=== PATIENT | male | born 1980 | race Caucasian/White ===

== ENCOUNTER 2017-01-09 16:04 | Emergency (ER) | payer MEDICAID ==
[2017-01-09] MEDS ORDERED: Famotidine 20 MG/2 ML SDV IVPUSH ONE (16:51)
[2017-01-09] MEDS ORDERED: HYDROmorphone 1 MG/ML Syringe IVPUSH ONE (16:51)
[2017-01-09] MEDS ORDERED: Ondansetron 4 MG/2 ML SDV IVPUSH ONE (16:51)
[2017-01-09] MEDS ORDERED: Sodium Chloride 0.9% 1,000 ML IV SCH (17:00)
--- NOTE | 2017-01-09 17:18 | EDM.PDOC ---
ED HPI GI/ABDOMINAL - General Chief Complaint: Abdominal Pain Stated Complaint: ABDOMINAL PN, BLOODY STOOL, SWOLLEN TESTICLES Time Seen by Provider: 01/09/17 16:21 Source of Information: Reports: Patient, RN notes reviewed - History of Present Illness INITIAL COMMENTS - FREE TEXT/NARRATIVE: 36-year-old male comes in with abdominal pain. This started about 4 days ago. The pain has been quite generalized. He started having diarrhea 2 or 3 days ago. That has been frequent and watery. He does get occasional cramping with this. He's been "forcing himself to eat". He's had nausea but no vomiting. No fever or chills. No prior abdominal surgeries. - Related Data Allergies/ADRs: Allergies Allergy/AdvReac Type Severity Reaction Status Date / Time haloperidol [From Haldol] Allergy Other Verified 01/09/17 16:20 Home Meds: Home Meds Ciprofloxacin [Ciprofloxacin HCl] 500 mg PO BID #7 tablet 01/09/17 [Rx] Hydrocodone/Acetaminophen [[place] 5-325] 1 tab PO Q6HR PRN #4 tablet 01/09/17 [Rx ] Ondansetron [Zofran ODT] 4 mg PO Q8H PRN #5 tab.dis 01/09/17 [Rx] Past Medical History Gastrointestinal History: Reports: Bowel obstruction, Other (see below) Other Gastrointestinal History: hernias; abdominal surgery - Past Surgical History HEENT Surgical History: Reports: Eye surgery, Tonsillectomy Social & Family History - Tobacco Use Smoking Status *Q: Current Every Day Smoker Years of Tobacco use: 21 Packs/Tins Daily: 2 - Recreational Drug Use Recreational Drug Use: Yes Drug Use in Last 12 Months: No ED ROS GENERAL - Review of Systems Review Of Systems: See Below Constitutional: Denies: fever, chills, diaphoresis HEENT: Reports: No symptoms Respiratory: Denies: Shortness of Breath, Pleuritic Chest Pain Cardiovascular: Denies: Chest pain GI/Abdominal: Reports: Abdominal pain, Diarrhea, Melena, Nausea Musculoskeletal: Reports: back pain Skin: Reports: no symptoms Neurological: Reports: Dizziness ED EXAM, GI/ABD - Physical Exam Exam: See Below General Appearance: alert, moderate distress Eyes: bilateral: normal appearance Throat/Mouth: Normal inspection, Normal oropharynx Head: atraumatic. No: facial swelling Neck: supple, full range of motion Respiratory/Chest: lungs clear, normal breath sounds Cardiovascular: regular rate, rhythm GI/Abdominal: soft, tenderness (Moderate diffuse). No: guarding, rebound Back Exam: No: CVA tenderness (L), CVA tenderness (R) Extremities: normal inspection, normal range of motion Neurological: alert, oriented, no motor/sensory deficits Skin Exam: Warm, Dry, Normal color Course - Vital Signs Last Recorded V/S: Last Vital Signs Temp 97.8 F 01/09/17 16:20 Pulse 70 01/09/17 16:20 Resp 18 01/09/17 16:20 BP 119/78 01/09/17 16:20 Pulse Ox 100 01/09/17 16:20 - Orders/Labs/Meds Orders: Active Orders 24 hr Category Date Time Status Sodium Chloride 0.9% [Normal Saline] 1,000 ml Med 01/09/17 17:00 Active IV ONETIME Medication Orders Sodium Chloride (Normal Saline) 1,000 mls @ 999 mls/hr IV ONETIME HANK Last Admin: 01/09/17 17:09 Dose: 999 mls/hr Labs: Laboratory Tests 01/09/17 01/09/17 01/09/17 Range/Units 16:55 16:55 16:55 WBC 7.88 (4.23-9.07) K/mm3 RBC 5.09 (4.63-6.08) M/mm3 Hgb 15.5 (13.7-17.5) gm/L Hct 44.8 (40.1-51.0) % MCV 88.0 (79.0-92.2) fl MCH 30.5 (25.7-32.2) pg MCHC 34.6 (32.2-35.5) g/dl RDW Std Deviation 43.8 (35.1-43.9) fL Plt Count 226 (163-337) K/mm3 MPV 10.4 (9.4-12.3) fl Neut % (Auto) 67.1 (34.0-67.9) % Lymph % (Auto) 25.9 (21.8-53.1) % [place] % (Auto) 5.8 (5.3-12.2) % Eos % (Auto) 0.8 (0.8-7.0) Baso % (Auto) 0.3 (0.1-1.2) % Neut # (Auto) 5.29 (1.78-5.38) K/mm3 Lymph # (Auto) 2.04 (1.32-3.57) K/mm3 [place] # (Auto) 0.46 (0.30-0.82) K/mm3 Eos # (Auto) 0.06 (0.04-0.54) K/mm3 Baso # (Auto) 0.02 (0.01-0.08) K/mm3 Sodium 142 (136-145) mEq/L Potassium 3.6 (3.5-5.1) mEq/L Chloride 105 (98-107) mEq/L Carbon Dioxide 26 (21-32) mEq/L Anion Gap 14.6 (5-15) BUN 6 L (7-18) mg/dL Creatinine 0.9 (0.7-1.3) mg/dL Est Cr Clr Drug Dosing 108.04 mL/min Estimated GFR (MDRD) > 60 (>60) mL/min BUN/Creatinine Ratio 6.7 L (14-18) Glucose 107 H (74-106) mg/dL Calcium 9.2 (8.5-10.1) mg/dL Total Bilirubin 0.7 (0.2-1.0) mg/dL AST 17 (15-37) U/L ALT 18 (16-63) U/L Alkaline Phosphatase 76 (46-116) U/L C-Reactive Protein < 0.2 (<1.0) mg/dL Total Protein 6.7 (6.4-8.2) g/dl Albumin 3.9 (3.4-5.0) g/dl Globulin 2.8 gm/dL Albumin/Globulin Ratio 1.4 (1-2) Urine Color (Yellow) Urine Appearance (Clear) Urine pH (5.0-8.0) Ur Specific [place] (1.005-1.030) Urine Protein (Negative) Urine Glucose (UA) (Negative) Urine Ketones (Negative) Urine Occult Blood (Negative) Urine Nitrite (Negative) Urine Bilirubin (Negative) Urine Urobilinogen (0.2-1.0) Ur Leukocyte Esterase (Negative) Urine RBC (0-5) /hpf Urine WBC (0-5) /hpf Ur Epithelial Cells (0-5) /hpf Amorphous Sediment (NOT SEEN) /hpf Urine Bacteria (FEW) /hpf Urine Mucus (FEW) /hpf 01/09/17 Range/Units 17:25 WBC (4.23-9.07) K/mm3 RBC (4.63-6.08) M/mm3 Hgb (13.7-17.5) gm/L Hct (40.1-51.0) % MCV (79.0-92.2) fl MCH (25.7-32.2) pg MCHC (32.2-35.5) g/dl RDW Std Deviation (35.1-43.9) fL Plt Count (163-337) K/mm3 MPV (9.4-12.3) fl Neut % (Auto) (34.0-67.9) % Lymph % (Auto) (21.8-53.1) % [place] % (Auto) (5.3-12.2) % Eos % (Auto) (0.8-7.0) Baso % (Auto) (0.1-1.2) % Neut # (Auto) (1.78-5.38) K/mm3 Lymph # (Auto) (1.32-3.57) K/mm3 [place] # (Auto) (0.30-0.82) K/mm3 Eos # (Auto) (0.04-0.54) K/mm3 Baso # (Auto) (0.01-0.08) K/mm3 Sodium (136-145) mEq/L Potassium (3.5-5.1) mEq/L Chloride (98-107) mEq/L Carbon Dioxide (21-32) mEq/L Anion Gap (5-15) BUN (7-18) mg/dL Creatinine (0.7-1.3) mg/dL Est Cr Clr Drug Dosing mL/min Estimated GFR (MDRD) (>60) mL/min BUN/Creatinine Ratio (14-18) Glucose (74-106) mg/dL Calcium (8.5-10.1) mg/dL Total Bilirubin (0.2-1.0) mg/dL AST (15-37) U/L ALT (16-63) U/L Alkaline Phosphatase (46-116) U/L C-Reactive Protein (<1.0) mg/dL Total Protein (6.4-8.2) g/dl Albumin (3.4-5.0) g/dl Globulin gm/dL Albumin/Globulin Ratio (1-2) Urine Color Light yellow (Yellow) Urine Appearance Clear (Clear) Urine pH 7.5 (5.0-8.0) Ur Specific [place] 1.015 (1.005-1.030) Urine Protein Negative (Negative) Urine Glucose (UA) Negative (Negative) Urine Ketones Negative (Negative) Urine Occult Blood Negative (Negative) Urine Nitrite Negative (Negative) Urine Bilirubin Negative (Negative) Urine Urobilinogen 0.2 (0.2-1.0) Ur Leukocyte Esterase Negative (Negative) Urine RBC 0-5 (0-5) /hpf Urine WBC 0-5 (0-5) /hpf Ur Epithelial Cells 0-5 (0-5) /hpf Amorphous Sediment Few H (NOT SEEN) /hpf Urine Bacteria Rare (FEW) /hpf Urine Mucus Not seen (FEW) /hpf Meds: Medications Generic Name Dose Route Start Last Admin Trade Name Freq PRN Reason Stop Dose Admin Sodium Chloride 1,000 mls @ 999 mls/hr 01/09/17 17:00 01/09/17 17:09 Normal Saline IV 999 mls/hr ONETIME HANK Administration Discontinued Medications Generic Name Dose Route Start Last Admin Trade Name Freq PRN Reason Stop Dose Admin Famotidine 20 mg 01/09/17 16:51 01/09/17 17:11 Pepcid IVPUSH 01/09/17 16:52 20 mg ONETIME ONE Administration Hydromorphone HCl 0.5 mg 01/09/17 16:51 01/09/17 17:13 Dilaudid IVPUSH 01/09/17 16:52 0.5 mg ONETIME ONE Administration Hydromorphone HCl 0.5 mg 01/09/17 18:32 01/09/17 18:37 Dilaudid IVPUSH 01/09/17 18:33 0.5 mg ONETIME ONE Administration Ondansetron HCl 4 mg 01/09/17 16:51 01/09/17 17:09 Zofran IVPUSH 01/09/17 16:52 4 mg ONETIME ONE Administration - Re-Assessments/Exams Free Text/Narrative Re-Assessment/Exam: 01/09/17 18:33 White blood count, C-reactive protein are both normal. Chemistries are good. He did feel better after initial meds and also has received 1 L normal saline IV. His pain and cramping is starting to come back, we'll give another 0.5 mg dose Dilaudid IV. This is likely a food born illness. Going to start him on Cipro 500 mg twice a day for 3 days. Discharge instructions as documented Departure - Departure Time of Disposition: 18:55 Disposition: Home, Self-Care 01 Condition: fair Clinical Impression: Abdominal pain Qualifiers: Abdominal location: generalized Qualified Code(s): R10.84 - Generalized abdominal pain Diarrhea Qualifiers: Diarrhea type: unspecified type Qualified Code(s): R19.7 - Diarrhea, unspecified Prescriptions: Hydrocodone/Acetaminophen [[place] 5-325] 1 tab PO Q6HR PRN #4 tablet PRN Reason: Pain Ciprofloxacin [Ciprofloxacin HCl] 500 mg PO BID #7 tablet Ondansetron [Zofran ODT] 4 mg PO Q8H PRN #5 tab.dis PRN Reason: Nausea/Vomiting Referrals: PCP,None [Primary Care Provider] - Forms: ED Department Discharge Additional Instructions: Clear liquids until tomorrow afternoon, then careful bland diet as tolerated, start Cipro antibiotic tonight take 500 mg daily for the next 3 days or until gone, Zofran every 6-8 hours if needed for further nausea or vomiting, hydrocodone every 6 hours if needed for severe pain, probiotic twice daily to get more the good bacteria back into your colon, that is available OTC, planned to take that for about a week. Followup [facility] medical clinic if not much better within 2-3 days as expected, return to ED if symptoms worsening in any - My Orders Last 24 Hours: My Active Orders 01/09/17 17:00 Sodium Chloride 0.9% [Normal Saline] 1,000 ml IV ONETIME - Assessment/Plan Last 24 Hours: My Active Orders 01/09/17 17:00 Sodium Chloride 0.9% [Normal Saline] 1,000 ml IV ONETIME
[2017-01-09] MEDS ORDERED: HYDROmorphone 0.5 MG/0.5 ML Syringe IVPUSH ONE (18:32)
[2017-01-09 19:12] VITALS: BP 107/80
== END 2017-01-09 19:07 | disposition home or self-care (01) ==
LOC: JD.ED 16:04
DX: R10.84 Generalized abdominal pain (principal); R19.7 Diarrhea, unspecified; F17.210 Nicotine dependence, cigarettes, uncomplicated; Z98.890 Other specified postprocedural states; Z79.899 Other long term (current) drug therapy
CPT/HCPCS: 36415; 80053; 81001; 85025; 86140; 96361; 96374; 96375; 96376; 99285; J1170; J2405; J7040; 99284

== ENCOUNTER 2017-01-15 09:09 | Emergency (ER) | payer MEDICAID ==
[2017-01-15 09:37] VITALS: BP 134/86
[2017-01-15] MEDS ORDERED: Sodium Chloride 0.9% 10 ML Syringe FLUSH PRN (09:54)
[2017-01-15] MEDS ORDERED: Ondansetron 4 MG/2 ML SDV IVPUSH ONE (09:54)
[2017-01-15] MEDS ORDERED: HYDROmorphone 1 MG/ML Syringe IVPUSH ONE (09:54)
[2017-01-15] MEDS ORDERED: Famotidine 20 MG/2 ML SDV IVPUSH ONE (09:54)
[2017-01-15] MEDS ORDERED: Sodium Chloride 0.9% 1,000 ML IV SCH ×2 (10:00→11:45)
[2017-01-15] MEDS ORDERED: methylPREDNISolone Sodium Succinate 125 MG/2 ML SDV IVPUSH ONE (11:39)
[2017-01-15] MEDS ORDERED: Ketorolac 30 MG/ML SDV IVPUSH SCH (12:15)
--- NOTE | 2017-01-15 13:01 | EDM.PDOC ---
ED HPI GI/ABDOMINAL - General Chief Complaint: Abdominal Pain Stated Complaint: LOOSE STOOL Time Seen by Provider: 01/15/17 09:34 Source of Information: Reports: Patient, RN notes reviewed - History of Present Illness INITIAL COMMENTS - FREE TEXT/NARRATIVE: 36-year-old male comes in with abdominal pain, nausea vomiting diarrhea. The symptoms started about a week ago. He was seen here in the ED able 4 days ago treated with IV fluid, IV meds and started on Cipro 500 mg twice daily. He's finished the Cipro. He states the diarrhea has not gotten any better. Now he is nauseated, intermittent vomiting. He states at times there is mucous with the diarrhea. He's had a lot of pain and cramping. No obvious fever or chills. - Related Data Allergies/ADRs: Allergies Allergy/AdvReac Type Severity Reaction Status Date / Time haloperidol [From Haldol] Allergy Other Verified 01/15/17 09:32 Home Meds: Home Meds Ciprofloxacin [Ciprofloxacin HCl] 500 mg PO BID #7 tablet 01/09/17 [Rx] Hydrocodone/Acetaminophen [[place] 5-325] 1 tab PO Q6HR PRN #4 tablet 01/09/17 [Rx ] Ondansetron [Zofran ODT] 4 mg PO Q8H PRN #5 tab.dis 01/09/17 [Rx] Ondansetron [Zofran ODT] 4 mg PO Q6H PRN #7 tab.dis 01/15/17 [Rx] Prednisone [IMW: predniSONE] 40 mg PO WITHBREAKFAST #10 tab 01/15/17 [Rx] Past Medical History Gastrointestinal History: Reports: Bowel obstruction, Other (see below) Other Gastrointestinal History: hernias; abdominal surgery, ulcers - Past Surgical History HEENT Surgical History: Reports: Eye surgery, Tonsillectomy Social & Family History - Family History Family Medical History: Noncontributory - Tobacco Use Smoking Status *Q: Current Every Day Smoker Years of Tobacco use: 10 Packs/Tins Daily: 1 - Recreational Drug Use Recreational Drug Use: No Drug Use in Last 12 Months: No ED ROS GENERAL - Review of Systems Review Of Systems: See Below Constitutional: Denies: fever, chills Respiratory: Denies: Shortness of Breath Cardiovascular: Denies: Chest pain GI/Abdominal: Reports: Abdominal pain, Diarrhea, Nausea, Vomiting Musculoskeletal: Reports: no symptoms Skin: Reports: no symptoms Neurological: Reports: No Symptoms ED EXAM, GI/ABD - Physical Exam Exam: See Below Exam Limited By: No limitations General Appearance: alert, anxious, mild distress Eyes: bilateral: normal appearance Throat/Mouth: Normal inspection, Normal oropharynx, Other (Oral mucosa mildly dry) Head: atraumatic Neck: supple, full range of motion Respiratory/Chest: lungs clear, normal breath sounds Cardiovascular: regular rate, rhythm GI/Abdominal: soft, tenderness (Mild diffuse). No: guarding, rebound Back Exam: No: CVA tenderness (L), CVA tenderness (R) Extremities: normal inspection, normal range of motion. No: leg pain Neurological: alert, oriented, no motor/sensory deficits Course - Vital Signs Last Recorded V/S: Last Vital Signs Temp 98.5 F 01/15/17 09:34 Pulse 74 01/15/17 09:34 Resp 18 01/15/17 09:34 BP 134/86 01/15/17 09:34 Pulse Ox 100 01/15/17 09:34 Orthostatic Blood Pressure [ 126/107 Standing] Orthostatic Blood Pressure [ 134/86 Supine] - Orders/Labs/Meds Orders: Active Orders 24 hr Category Date Time Status Peripheral IV Care [RC] . DIRECTED Care 01/15/17 09:56 Active Peripheral IV Insertion Adult [OM.PC] Stat Oth 01/15/17 09:54 Ordered Labs: Laboratory Tests 01/15/17 01/15/17 01/15/17 Range/Units 10:00 10:00 10:00 WBC 8.06 (4.23-9.07) K/mm3 RBC 5.66 (4.63-6.08) M/mm3 Hgb 17.2 (13.7-17.5) gm/L Hct 49.3 (40.1-51.0) % MCV 87.1 (79.0-92.2) fl MCH 30.4 (25.7-32.2) pg MCHC 34.9 (32.2-35.5) g/dl RDW Std Deviation 44.0 H (35.1-43.9) fL Plt Count 259 (163-337) K/mm3 MPV 10.6 (9.4-12.3) fl Neut % (Auto) 69.4 H (34.0-67.9) % Lymph % (Auto) 23.4 (21.8-53.1) % [place] % (Auto) 6.2 (5.3-12.2) % Eos % (Auto) 0.6 L (0.8-7.0) Baso % (Auto) 0.2 (0.1-1.2) % Neut # (Auto) 5.58 H (1.78-5.38) K/mm3 Lymph # (Auto) 1.89 (1.32-3.57) K/mm3 [place] # (Auto) 0.50 (0.30-0.82) K/mm3 Eos # (Auto) 0.05 (0.04-0.54) K/mm3 Baso # (Auto) 0.02 (0.01-0.08) K/mm3 Sodium 142 (136-145) mEq/L Potassium 3.8 (3.5-5.1) mEq/L Chloride 108 H (98-107) mEq/L Carbon Dioxide 23 (21-32) mEq/L Anion Gap 14.8 (5-15) BUN 11 (7-18) mg/dL Creatinine 0.9 (0.7-1.3) mg/dL Est Cr Clr Drug Dosing TNP Estimated GFR (MDRD) > 60 (>60) mL/min BUN/Creatinine Ratio 12.2 L (14-18) Glucose 104 (74-106) mg/dL Calcium 9.2 (8.5-10.1) mg/dL Total Bilirubin 0.8 (0.2-1.0) mg/dL AST 19 (15-37) U/L ALT 22 (16-63) U/L Alkaline Phosphatase 78 (46-116) U/L C-Reactive Protein < 0.2 (<1.0) mg/dL Total Protein 7.1 (6.4-8.2) g/dl Albumin 4.1 (3.4-5.0) g/dl Globulin 3.0 gm/dL Albumin/Globulin Ratio 1.4 (1-2) Lipase 245 (73-393) U/L Meds: Medications Discontinued Medications Generic Name Dose Route Start Last Admin Trade Name Freq PRN Reason Stop Dose Admin Famotidine 20 mg 01/15/17 09:54 01/15/17 10:15 Pepcid IVPUSH 01/15/17 09:55 20 mg ONETIME ONE Administration Hydromorphone HCl 1 mg 01/15/17 09:54 01/15/17 10:18 Dilaudid IVPUSH 01/15/17 09:55 1 mg ONETIME ONE Administration Sodium Chloride 1,000 mls @ 999 mls/hr 01/15/17 10:00 01/15/17 10:15 Normal Saline IV 999 mls/hr ONETIME HANK Administration Sodium Chloride 1,000 mls @ 999 mls/hr 01/15/17 11:45 01/15/17 11:52 Normal Saline IV 999 mls/hr ONETIME HANK Administration Ketorolac Tromethamine 30 mg 01/15/17 12:15 01/15/17 12:23 Toradol IVPUSH 30 mg ONETIME HANK Administration Methylprednisolone Sodium Succinate 125 mg 01/15/17 11:39 01/15/17 11:53 Solu-Medrol IVPUSH 01/15/17 11:40 125 mg ONETIME ONE Administration Ondansetron HCl 4 mg 01/15/17 09:54 01/15/17 10:17 Zofran IVPUSH 01/15/17 09:55 4 mg ONETIME ONE Administration Sodium Chloride 10 ml 01/15/17 09:54 01/15/17 10:46 Saline Flush FLUSH 10 ml ASDIRECTED PRN Administration Keep Vein Open - Re-Assessments/Exams Free Text/Narrative Re-Assessment/Exam: 01/15/17 12:53. Patient reportedly did take the Cipro as prescribed, has been on clear liquids as directed. 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 Labs today look remarkably good considering what he has described her symptoms. He is not dehydrated. Anion gap normal, white blood count normal, other labs normal as well. We've given 2 L of IV fluid. We did give some Zofran, IV Pepcid, IV Dilaudid. A short time ago he is asking for more pain medication. He does seem to have a strong interest in that. We've given Toradol 30 mg IV. Discharge instructions as documented Departure - Departure Time of Disposition: 13:02 Disposition: Home, Self-Care 01 Condition: fair Clinical Impression: Vomiting Qualifiers: Vomiting type: unspecified Vomiting Intractability: non-intractable Nausea presence: with nausea Qualified Code(s): R11.2 - Nausea with vomiting, unspecified Diarrhea Qualifiers: Diarrhea type: unspecified type Qualified Code(s): R19.7 - Diarrhea, unspecified Abdominal pain Qualifiers: Abdominal location: generalized Qualified Code(s): R10.84 - Generalized abdominal pain Prescriptions: Ondansetron [Zofran ODT] 4 mg PO Q6H PRN #7 tab.dis PRN Reason: Nausea/Vomiting Prednisone [IMW: predniSONE] 40 mg PO WITHBREAKFAST #10 tab Instructions: Viral Gastroenteritis, Adult, [id number], Abdominal Pain, Adult , [id number] Referrals: PCP,None [Primary Care Provider] - Forms: ED Department Discharge Additional Instructions: Continue clear liquids, start probiotic twice daily as discussed. It is extremely important to do this. That will help get normal bacteria back into your colon and intestine which has been washed out., Prednisone as prescribed, 40 mg daily for the next 5 days, followup clinic if not much better within 3-4 days as expected, call [phone] as needed for appointment. - My Orders Last 24 Hours: My Active Orders 01/15/17 09:54 Peripheral IV Insertion Adult [OM.PC] Stat 01/15/17 09:56 Peripheral IV Care [RC] . DIRECTED - Assessment/Plan Last 24 Hours: My Active Orders 01/15/17 09:54 Peripheral IV Insertion Adult [OM.PC] Stat 01/15/17 09:56 Peripheral IV Care [RC] . DIRECTED
== END 2017-01-15 13:21 | disposition home or self-care (01) ==
LOC: JD.ED 09:09
DX: R10.84 Generalized abdominal pain (principal); R11.2 Nausea with vomiting, unspecified; R19.7 Diarrhea, unspecified; F17.210 Nicotine dependence, cigarettes, uncomplicated; Z98.890 Other specified postprocedural states; Z79.899 Other long term (current) drug therapy; Z88.8 Allergy status to other drugs, medicaments and biological substances
CPT/HCPCS: 36415; 80053; 83690; 85025; 86140; 96361; 96374; 96375; 99284; J1170; J1885; J2405; J2930; J7040; J7050

== ENCOUNTER 2017-01-16 13:20 | Inpatient (IN) | payer MEDICAID ==
--- NOTE | 2017-01-16 13:23 | EDM.PDOC ---
ED HPI GENERAL MEDICAL PROBLEM - General Chief Complaint: Abdominal Pain Stated Complaint: [facility] Time Seen by Provider: 01/16/17 13:23 - History of Present Illness INITIAL COMMENTS - FREE TEXT/NARRATIVE: 36-year-old male presents emergency room via EMS with continued abdominal discomfort nausea vomiting and diarrhea. Patient has been seen 2 other times with similar complaints. He was seen here most recently yesterday and again about a week ago. Yesterday he was started on prednisone the patient believes this is making the situation worse he was discharged with 7 Zofran and has gone through all of these and has vomited 8 or 9 times thus far today. Patient denies any fevers or chills however he doesn't feel right just before and after vomiting. Patient is significant diffuse abdominal pain. He states he vomited coffee-ground emesis and has noted some maroon-colored blood in the stools. He does give a history of having C. difficile in the past. He does not recall if this ever was reevaluated after this was diagnosed. He cannot recall how it was treated. Abdomen Pain Score (Numeric/FACES): 8 - Related Data Allergies Allergy/AdvReac Type Severity Reaction Status Date / Time haloperidol [From Haldol] Allergy Other Verified 01/15/17 09:32 Home Meds: Home Meds Ciprofloxacin [Ciprofloxacin HCl] 500 mg PO BID #7 tablet 01/09/17 [Rx] Ondansetron [Zofran ODT] 4 mg PO Q8H PRN #5 tab.dis 01/09/17 [Rx] Ondansetron [Zofran ODT] 4 mg PO Q6H PRN #7 tab.dis 01/15/17 [Rx] Prednisone [IMW: predniSONE] 40 mg PO WITHBREAKFAST #10 tab 01/15/17 [Rx] Past Medical History Gastrointestinal History: Reports: Bowel obstruction, Other (see below) Other Gastrointestinal History: hernias; abdominal surgery, ulcers - Past Surgical History HEENT Surgical History: Reports: Eye surgery, Tonsillectomy Social & Family History - Family History Family Medical History: Noncontributory - Tobacco Use Smoking Status *Q: Current Every Day Smoker Years of Tobacco use: 10 Packs/Tins Daily: 1 - Recreational Drug Use Recreational Drug Use: No Drug Use in Last 12 Months: No ED ROS GENERAL - Review of Systems Review Of Systems: See Below Constitutional: Denies: fever, chills HEENT: Reports: No symptoms Respiratory: Reports: No Symptoms Cardiovascular: Reports: No symptoms GI/Abdominal: Reports: Abdominal pain, Diarrhea, Nausea, Vomiting : Reports: no symptoms ED EXAM, GENERAL - Physical Exam Exam: See Below Exam Limited By: No limitations General Appearance: alert, no apparent distress Head: atraumatic, normocephalic Neck: normal inspection, supple, non-tender, full range of motion Respiratory/Chest: no respiratory distress, lungs clear, normal breath sounds Cardiovascular: regular rate, rhythm, no edema, no murmur GI/Abdominal: normal bowel sounds, soft, other (These tenderness without rebound or guarding the tenderness seems to be worse in the epigastric area) Back Exam: normal inspection. No: CVA tenderness (L), CVA tenderness (R) Extremities: normal inspection, no pedal edema Course - Vital Signs Last Recorded V/S: Last Vital Signs Temp 37.4 C 01/16/17 13:25 Pulse 87 01/16/17 13:25 Resp 18 01/16/17 13:25 BP 136/79 01/16/17 13:25 Pulse Ox 100 01/16/17 13:25 Orthostatic Blood Pressure [ 120/86 Standing] Orthostatic Blood Pressure [ 145/82 Sitting] Orthostatic Blood Pressure [ 114/80 Supine] - Orders/Labs/Meds Labs: Laboratory Tests 01/16/17 01/16/17 01/16/17 Range/Units 14:20 14:25 14:25 WBC 16.33 H (4.23-9.07) K/mm3 RBC 5.33 (4.63-6.08) M/mm3 Hgb 16.2 (13.7-17.5) gm/L Hct 46.5 (40.1-51.0) % MCV 87.2 (79.0-92.2) fl MCH 30.4 (25.7-32.2) pg MCHC 34.8 (32.2-35.5) g/dl RDW Std Deviation 43.5 (35.1-43.9) fL Plt Count 254 (163-337) K/mm3 MPV 10.3 (9.4-12.3) fl Neutrophils % (Manual) 87 H (40-60) % Band Neutrophils % 0 (0-10) % Lymphocytes % (Manual) 6 L (20-40) % Atypical Lymphs % 4 % Monocytes % (Manual) 3 (2-10) % Eosinophils % (Manual) 0 L (0.8-7.0) % Basophils % (Manual) 0 L (0.2-1.2) Toxic Granulation 2+ moderate Platelet Estimate Adequate Plt Morphology Comment Normal Poikilocytosis 1+ slight Anisocytosis 1+ slight Microcytosis 1+ slight Macrocytosis 1+ slight Ovalocytes 1+ slight RBC Morph Comment Abnormal PT (8.0-13.0) SECONDS INR Sodium 143 (136-145) mEq/L Potassium 3.8 (3.5-5.1) mEq/L Chloride 108 H (98-107) mEq/L Carbon Dioxide 25 (21-32) mEq/L Anion Gap 13.8 (5-15) BUN 8 (7-18) mg/dL Creatinine 0.9 (0.7-1.3) mg/dL Est Cr Clr Drug Dosing 102.90 mL/min Estimated GFR (MDRD) > 60 (>60) mL/min BUN/Creatinine Ratio 8.9 L (14-18) Glucose 119 H (74-106) mg/dL Calcium 9.6 (8.5-10.1) mg/dL Total Bilirubin 0.7 (0.2-1.0) mg/dL AST 14 L (15-37) U/L ALT 23 (16-63) U/L Alkaline Phosphatase 73 (46-116) U/L Total Protein 6.8 (6.4-8.2) g/dl Albumin 4.1 (3.4-5.0) g/dl Globulin 2.7 gm/dL Albumin/Globulin Ratio 1.5 (1-2) Lipase 257 (73-393) U/L C.difficile [id number] Presumptive negative C. difficile Tox (PCR) Positive H 01/16/17 Range/Units 14:25 WBC (4.23-9.07) K/mm3 RBC (4.63-6.08) M/mm3 Hgb (13.7-17.5) gm/L Hct (40.1-51.0) % MCV (79.0-92.2) fl MCH (25.7-32.2) pg MCHC (32.2-35.5) g/dl RDW Std Deviation (35.1-43.9) fL Plt Count (163-337) K/mm3 MPV (9.4-12.3) fl Neutrophils % (Manual) (40-60) % Band Neutrophils % (0-10) % Lymphocytes % (Manual) (20-40) % Atypical Lymphs % % Monocytes % (Manual) (2-10) % Eosinophils % (Manual) (0.8-7.0) % Basophils % (Manual) (0.2-1.2) Toxic Granulation Platelet Estimate Plt Morphology Comment Poikilocytosis Anisocytosis Microcytosis Macrocytosis Ovalocytes RBC Morph Comment PT 11.9 (8.0-13.0) SECONDS INR 1.09 Sodium (136-145) mEq/L Potassium (3.5-5.1) mEq/L Chloride (98-107) mEq/L Carbon Dioxide (21-32) mEq/L Anion Gap (5-15) BUN (7-18) mg/dL Creatinine (0.7-1.3) mg/dL Est Cr Clr Drug Dosing mL/min Estimated GFR (MDRD) (>60) mL/min BUN/Creatinine Ratio (14-18) Glucose (74-106) mg/dL Calcium (8.5-10.1) mg/dL Total Bilirubin (0.2-1.0) mg/dL AST (15-37) U/L ALT (16-63) U/L Alkaline Phosphatase (46-116) U/L Total Protein (6.4-8.2) g/dl Albumin (3.4-5.0) g/dl Globulin gm/dL Albumin/Globulin Ratio (1-2) Lipase (73-393) U/L C.difficile [id number] C. difficile Tox (PCR) Meds: Medications Discontinued Medications Generic Name Dose Route Start Last Admin Trade Name Freq PRN Reason Stop Dose Admin Al Hydroxide/Mg Hydroxide 30 0 ml 01/16/17 14:12 ml/ Lidocaine HCl 15 ml PO 01/16/17 14:13 ONETIME ONE Lactated Ringer's 1,000 mls @ 999 mls/hr 01/16/17 14:14 01/16/17 14:55 Ringers, Lactated IV 01/16/17 15:14 999 mls/hr .BOLUS ONE Administration Metoclopramide HCl 5 mg 01/16/17 14:54 01/16/17 14:57 Reglan IVPUSH 01/16/17 14:55 5 mg ONETIME ONE Administration Metoclopramide HCl 5 mg 01/16/17 15:14 01/16/17 15:23 Reglan IVPUSH 01/16/17 15:15 5 mg ONETIME ONE Administration - Re-Assessments/Exams Free Text/Narrative Re-Assessment/Exam: 01/16/17 14:59 Patient Hemoccult on vomit is mildly positive. He has loose stools this is Hemoccult negative. repeat labs pending. The patient did vomit shortly after arrival he was given Reglan 5 mg. I would like to hold off on any pain management at this point until trying a GI cocktail. The patient voices understanding with this 01/16/17 15:35 Patient had another episode of emesis this was followed up by another 5 mg of Reglan he is improving. He is not ready to try a GI cocktail however. 01/16/17 16:32 Patient had some improvement with his GI cocktail. At this point the patient can be admitted for further control of his symptoms and further evaluation. His PCR for Clostridium difficile is positive however that NAP 1 is negative discussing this with the lab his toxin B. is positive is negative. He reports having C. difficile in the past. It's unclear at this time whether this represents an acute infection. Lab thinks this is a true positive, however we are investigating this further. However with this nausea vomiting and diarrhea this has been more and more difficult s for him to control as an outpatient, he will be admitted. Case discussed with Dr. Brown our hospitalist. Departure - Departure Time of Disposition: 16:34 Disposition: Admitted As Inpatient 67 Clinical Impression: Nausea & vomiting Diarrhea Qualifiers: Diarrhea type: unspecified type Qualified Code(s): R19.7 - Diarrhea, unspecified
[2017-01-16] MEDS ORDERED: Alum Hydrox/Mag Hydrox/Simeth 30 ML, Lidocaine 2% 15 ML PO ONE ×2 (14:12)
[2017-01-16] MEDS ORDERED: Lactated Ringers 1,000 ML IV ONE (14:14)
[2017-01-16] MEDS ORDERED: Metoclopramide 10 MG/2 ML SDV IVPUSH ONE ×2 (14:54→15:14)
[2017-01-16] MEDS ORDERED: HYDROmorphone 0.5 MG/0.5 ML Syringe IVPUSH ONE (16:28)
[2017-01-16] MEDS ORDERED: Sucralfate 1 GM Tab PO ONE (16:35)
[2017-01-16] MEDS ORDERED: Promethazine 12.5 MG in Sodium Chloride 0.9% 50 ML IV PRN (16:54)
[2017-01-16] MEDS ORDERED: Acetaminophen 325 MG Tab PO PRN (16:54)
--- NOTE | 2017-01-16 16:54 | PCM.HP ---
H&P History of Present Illness - General Date of Service: 01/16/17 Admit Problem/Dx: Admission Diagnosis/Problem Admission Diagnosis/Problem Vomiting Source of Information: Patient, Old records, Provider, RN notes reviewed History Limitations: Reports: No limitations - History of Present Illness Initial Comments - Free Text/Narative: This is a 36 yo white male with medical hx/o heroin abuse who comes in with c/o diffuse abdominal pain associated with watery diarrhea and coffee ground emesis. His symptoms started over 1 week ago. He denies any recent travel, no unusual diet or drinks. He carries a hx/o C. difficile infection in the past. Patient was seen in ED twice now with similar presentation. His most recent visit was yesterday. He was given Cipro along with steroids for presumptive colitis. However he came back today for worsening symptoms. In ED he was found weakly pos for gastro-occult but negative for hemoccult test. His initial labs show a CBC remarkable for WBC of 16.33 and Neutrophils of 87. His chemistry is significant for Cl of 108 and BS of 119. His lipase, AST and ALT were all normal. However he is pos for C. difficile test. Abdomen Pain Score (Numeric/FACES): 8 - Related Data Allergies/Adverse Reactions: Allergies Allergy/AdvReac Type Severity Reaction Status Date / Time haloperidol [From Haldol] Allergy Other Verified 01/15/17 09:32 Home Medications: Home Meds Ciprofloxacin [Ciprofloxacin HCl] 500 mg PO BID #7 tablet 01/09/17 [Rx] Ondansetron [Zofran ODT] 4 mg PO Q8H PRN #5 tab.dis 01/09/17 [Rx] Ondansetron [Zofran ODT] 4 mg PO Q6H PRN #7 tab.dis 01/15/17 [Rx] Prednisone [IMW: predniSONE] 40 mg PO WITHBREAKFAST #10 tab 01/15/17 [Rx] Past Medical History Gastrointestinal History: Reports: Bowel obstruction, Other (see below) Other Gastrointestinal History: hernias; abdominal surgery, ulcers - Past Surgical History HEENT Surgical History: Reports: Eye surgery, Tonsillectomy Social & Family History - Family History Family Medical History: Noncontributory - Tobacco Use Smoking Status *Q: Current Every Day Smoker Years of Tobacco use: 10 Packs/Tins Daily: 1 - Caffeine Use Caffeine Use: Reports: Soda - Recreational Drug Use Recreational Drug Use: No Drug Use in Last 12 Months: No H&P Review of Systems - Review of Systems: Review Of Systems: See Below General: Reports: decreased appetite. Denies: fever, chills, malaise, weakness HEENT: Reports: no symptoms Pulmonary: Denies: Shortness of Breath, Wheezing Cardiovascular: Denies: chest pain, palpitations, dyspnea on exertion Gastrointestinal: Reports: Abdominal pain, Anorexia, Diarrhea, Decreased appetite, Flatus, Nausea, Vomiting, Other (coffee ground emesis). Denies: Constipation, Difficulty swallowing, Distension, Hematemesis, Hematochezia, Melena, Mucous in stool, Stool incontinence Genitourinary: Reports: no symptoms Musculoskeletal: Reports: no symptoms Skin: Denies: jaundice, pallor, pruritis, rash, erythema, lesions Psychiatric: Denies: confusion, depression, anxiety, hallucinations, suicidal ideation Neurological: Denies: Confusion, Pre-Existing Deficit, Difficulty Walking, Weakness Hematologic/Lymphatic: Reports: no symptoms Immunologic: Reports: no symptoms Exam - Exam Exam: See Below - Vital Signs Vital Signs: Last Vital Signs Temp 37.4 C 01/16/17 13:25 Pulse 87 01/16/17 13:25 Resp 18 01/16/17 13:25 BP 136/79 01/16/17 13:25 Pulse Ox 100 01/16/17 13:25 Weight: 63.503 kg - Exam General: alert, oriented, cooperative. No: mild distress HEENT: Conjunctiva clear, EACs clear, EOMI, Hearing intact, Mucosa moist & pink , Nares patent, Normal nasal septum, Posterior pharynx clear, Pupils equal, Pupils reactive, TMs clear Neck: supple, trachea midline, 2+ carotid pulse wo bruit, full range of motion Lungs: Normal respiratory effort, Wheezing Cardiovascular: regular rate, regular rhythm Abdomen: soft, tenderness, hyperactive bowel sounds. No: organomegaly, peritoneal signs, distention, guarding, rigidity, rebound, hernia, Horn's sign (Male) Exam: Deferred Rectal (Males) Exam: Deferred Back Exam: normal inspection, decreased range of motion Extremities: normal inspection, normal pulses. No: clubbing, cyanosis, calf tenderness, edema Skin: warm, dry, intact, other (multiple skin tattoos) Skin Alteration Location (drawings not to scale): 1 - scar 2 - left inguinal scar Neuro Extensive - Mental Status: oriented x3, normal cognition, memory intact Neuro Extensive - Motor, Sensory, Reflexes: CN II-XII intact, normal gait Psychiatric: alert, normal affect, normal mood - Patient Data Result Diagrams: 01/16/17 14:25 01/16/17 14:25 *Q Meaningful Use (ADM) - VTE *Q VTE Criteria *Q: - Stroke *Q Stroke Criteria *Q: - AMI *Q AMI Criteria *Q: Problem List Initiated/Reviewed/Updated: Yes Orders Last 24hrs: Active Orders 24 hr Category Date Time Status DRUG SCREEN, URINE [URCHEM] Stat Lab 01/16/17 16:36 Uncollected Assessment/Plan Comment:: Assessment/Plan: Acute: Clostridium Difficile Infection - Risk factor: Recent Abx Use - Has had previous hx/o it in the past - D/c Quinolones - Start oral flagyl 500 mg Q8, first dose now C. Difficile Associated Diarrhea - Supportive care - OP and fecal WBC - He is not a local here Abdominal Pain and Cramps - Likely 2/2 Above - KUB now Intractable Nausea and Vomiting - PRN Anti-emesis - Supportive Care - NPO except meds, ice chips and sips of water Coffee Ground Emesis - Gastro-occult pos - Will monitor Leukocytosis - Likely 2/2 Steroid Use - Hold oral steroids Nicotine Dependence - Smoke 1ppd - Nicotine patch daily Chronic: Hx/o Heroin Abuse Plan: Admit Med-Surg Supportive care Routine AM Labs SW/CM for d/c planning Additional orders as above
[2017-01-16] MEDS ORDERED: Scopolamine 1.5 MG Transdermal Patch TOP ONE (16:59)
[2017-01-16] MEDS ORDERED: Pneumococcal Polyvalent-23 Vaccine 0.5 ML SDV IM ONE (17:50)
[2017-01-16] MEDS ORDERED: Flu Vaccine 2016-17(36Mos+)/PF 60 MCG/0.5 ML Syringe IM ONE (17:50)
[2017-01-16] MEDS: metroNIDAZOLE 500 MG Tab PO SCH (18:17)
[2017-01-16] MEDS: Dextrose 5%-0.45% NaCl 1,000 ML IV SCH (18:19)
[2017-01-16] MEDS: Acetaminophen/HYDROcodone 325-5 MG Tab PO PRN (18:31)
[2017-01-16] MEDS: Nicotine 21 MG/24 Hr Patch TRDERM SCH (20:00)
[2017-01-16] MEDS: HYDROmorphone 0.5 MG/0.5 ML Syringe IVPUSH PRN (20:01)
[2017-01-16] MEDS: Temazepam 30 MG Cap PO PRN (21:02)
[2017-01-17] MEDS: Ondansetron 4 MG/2 ML SDV IV PRN ×2 (00:06→12:06)
[2017-01-17] MEDS: Acetaminophen/HYDROcodone 325-5 MG Tab PO PRN ×4 (00:22→16:03)
[2017-01-17] MEDS: metroNIDAZOLE 500 MG Tab PO SCH ×3 (00:22→16:03)
[2017-01-17] MEDS: HYDROmorphone 0.5 MG/0.5 ML Syringe IVPUSH PRN ×5 (01:20→12:05)
[2017-01-17] MEDS ORDERED: Aluminum Hydroxide/Magnesium Hydroxide/Simethicone Susp 30 ML Cup PO PRN (01:34)
[2017-01-17] MEDS: Dextrose 5%-0.45% NaCl 1,000 ML IV SCH ×3 (02:22→17:44)
[2017-01-17] MEDS ORDERED: Metoclopramide 10 MG/2 ML SDV IVPUSH PRN (06:22)
[2017-01-17] MEDS ORDERED: Pantoprazole 40 MG Vial IVPUSH ONE (06:30)
--- NOTE | 2017-01-17 08:12 | CR ---
Abdomen: Supine view of the abdomen was obtained. Comparison: No previous study. Bowel gas pattern appears within normal limits. Calcifications are seen within the pelvis compatible with phleboliths. Bony structures are within normal limits. Impression: 1. Unremarkable supine abdominal x-ray. Agree with preliminary report issued by [facility] (preliminary report dictated on 01/16/17, 8:53 PM Central Time) Diagnostic code #1
--- NOTE | 2017-01-17 08:42 | PCM.PN ---
- General Info Date of Service: 01/17/17 Admission Dx/Problem (Free Text): Admission Diagnosis/Problem Admission Diagnosis/Problem Vomiting Subjective Update: Follow Up Functional Status: Reports: urinating, new symptoms (peters when he urinates). Denies: pain controlled - Review of Systems General: Denies: Fever, Chills HEENT: Reports: no symptoms Pulmonary: Denies: shortness of breath Cardiovascular: Denies: Chest Pain Gastrointestinal: Reports: Abdominal pain, Diarrhea, Nausea Genitourinary: Reports: no symptoms Musculoskeletal: Reports: no symptoms Skin: Denies: rash Neurological: Denies: Confusion, Seizure, Weakness Psychiatric: Denies: depression, anxiety, agitation, hallucinations, suicidal ideation, homicidal ideation Systems Review Comment:: No overnight issues. He is not much better. Still having watery diarrhea > 10 times since admission. Still nauseous. His pain is not controlled. He has no new complaints. - Patient Data Vitals - most recent: Last Vital Signs Temp 36.6 C 01/17/17 02:56 Pulse 62 01/17/17 02:56 Resp 17 01/17/17 02:56 BP 101/75 01/17/17 04:25 Pulse Ox 94 L 01/17/17 02:56 Weight - most recent: 63.367 kg I&O - last 24 hours: Intake & Output 01/16/17 01/17/17 01/17/17 22:59 06:59 14:59 Intake Total 1111 Output Total 450 Balance 661 Lab Results last 24 hrs: Laboratory Results - last 24 hr 01/16/17 01/16/17 01/17/17 Range/Units 19:38 19:38 05:40 WBC 10.74 H (4.23-9.07) K/mm3 RBC 4.95 (4.63-6.08) M/mm3 Hgb 14.9 (13.7-17.5) gm/L Hct 44.1 (40.1-51.0) % MCV 89.1 (79.0-92.2) fl MCH 30.1 (25.7-32.2) pg MCHC 33.8 (32.2-35.5) g/dl RDW Std Deviation 44.3 H (35.1-43.9) fL Plt Count 236 (163-337) K/mm3 MPV 10.6 (9.4-12.3) fl Neut % (Auto) 53.1 (34.0-67.9) % Lymph % (Auto) 37.3 (21.8-53.1) % [place] % (Auto) 8.4 (5.3-12.2) % Eos % (Auto) 0.7 L (0.8-7.0) Baso % (Auto) 0.3 (0.1-1.2) % Neut # (Auto) 5.71 H (1.78-5.38) K/mm3 Lymph # (Auto) 4.01 H (1.32-3.57) K/mm3 [place] # (Auto) 0.90 H (0.30-0.82) K/mm3 Eos # (Auto) 0.07 (0.04-0.54) K/mm3 Baso # (Auto) 0.03 (0.01-0.08) K/mm3 Sodium (136-145) mEq/L Potassium (3.5-5.1) mEq/L Chloride (98-107) mEq/L Carbon Dioxide (21-32) mEq/L Anion Gap (5-15) BUN (7-18) mg/dL Creatinine (0.7-1.3) mg/dL Est Cr Clr Drug Dosing mL/min Estimated GFR (MDRD) (>60) mL/min BUN/Creatinine Ratio (14-18) Glucose (74-106) mg/dL Calcium (8.5-10.1) mg/dL Magnesium (1.8-2.4) mg/dl C-Reactive Protein (<1.0) mg/dL Urine Color Yellow (Yellow) Urine Appearance Cloudy H (Clear) Urine pH 8.5 H (5.0-8.0) Ur Specific [place] 1.020 (1.005-1.030) Urine Protein Negative (Negative) Urine Glucose (UA) Negative (Negative) Urine Ketones Negative (Negative) Urine Occult Blood Negative (Negative) Urine Nitrite Negative (Negative) Urine Bilirubin Negative (Negative) Urine Urobilinogen 0.2 (0.2-1.0) Ur Leukocyte Esterase Negative (Negative) Urine RBC 0-5 (0-5) /hpf Urine WBC 0-5 (0-5) /hpf Ur Epithelial Cells 0-5 (0-5) /hpf Amorphous Sediment Many H (NOT SEEN) /hpf Urine Bacteria Few (FEW) /hpf Urine Mucus Not seen (FEW) /hpf Urine Opiates Screen Negative (NEGATIVE) Ur Buprenorphine Scrn Negative (NEGATIVE) Ur Oxycodone Screen Negative (NEGATIVE) Urine Methadone Screen Negative (NEGATIVE) Ur Propoxyphene Screen Negative (NEGATIVE) Ur Barbiturates Screen Negative (NEGATIVE) Ur Tricyclics Screen Negative (NEGATIVE) Ur Phencyclidine Scrn Negative (NEGATIVE) Ur Amphetamine Screen Negative (NEGATIVE) U Methamphetamines Scrn Negative (NEGATIVE) U Benzodiazepines Scrn Negative (NEGATIVE) U Cocaine Metab Screen Negative (NEGATIVE) U Marijuana (THC) Screen Negative (NEGATIVE) 01/17/17 Range/Units 05:40 WBC (4.23-9.07) K/mm3 RBC (4.63-6.08) M/mm3 Hgb (13.7-17.5) gm/L Hct (40.1-51.0) % MCV (79.0-92.2) fl MCH (25.7-32.2) pg MCHC (32.2-35.5) g/dl RDW Std Deviation (35.1-43.9) fL Plt Count (163-337) K/mm3 MPV (9.4-12.3) fl Neut % (Auto) (34.0-67.9) % Lymph % (Auto) (21.8-53.1) % [place] % (Auto) (5.3-12.2) % Eos % (Auto) (0.8-7.0) Baso % (Auto) (0.1-1.2) % Neut # (Auto) (1.78-5.38) K/mm3 Lymph # (Auto) (1.32-3.57) K/mm3 [place] # (Auto) (0.30-0.82) K/mm3 Eos # (Auto) (0.04-0.54) K/mm3 Baso # (Auto) (0.01-0.08) K/mm3 Sodium 141 (136-145) mEq/L Potassium 3.3 L (3.5-5.1) mEq/L Chloride 107 (98-107) mEq/L Carbon Dioxide 28 (21-32) mEq/L Anion Gap 9.3 (5-15) BUN 7 (7-18) mg/dL Creatinine 1.0 (0.7-1.3) mg/dL Est Cr Clr Drug Dosing 92.41 mL/min Estimated GFR (MDRD) > 60 (>60) mL/min BUN/Creatinine Ratio 7.0 L (14-18) Glucose 102 (74-106) mg/dL Calcium 8.4 L (8.5-10.1) mg/dL Magnesium 1.7 L (1.8-2.4) mg/dl C-Reactive Protein < 0.2 (<1.0) mg/dL Urine Color (Yellow) Urine Appearance (Clear) Urine pH (5.0-8.0) Ur Specific [place] (1.005-1.030) Urine Protein (Negative) Urine Glucose (UA) (Negative) Urine Ketones (Negative) Urine Occult Blood (Negative) Urine Nitrite (Negative) Urine Bilirubin (Negative) Urine Urobilinogen (0.2-1.0) Ur Leukocyte Esterase (Negative) Urine RBC (0-5) /hpf Urine WBC (0-5) /hpf Ur Epithelial Cells (0-5) /hpf Amorphous Sediment (NOT SEEN) /hpf Urine Bacteria (FEW) /hpf Urine Mucus (FEW) /hpf Urine Opiates Screen (NEGATIVE) Ur Buprenorphine Scrn (NEGATIVE) Ur Oxycodone Screen (NEGATIVE) Urine Methadone Screen (NEGATIVE) Ur Propoxyphene Screen (NEGATIVE) Ur Barbiturates Screen (NEGATIVE) Ur Tricyclics Screen (NEGATIVE) Ur Phencyclidine Scrn (NEGATIVE) Ur Amphetamine Screen (NEGATIVE) U Methamphetamines Scrn (NEGATIVE) U Benzodiazepines Scrn (NEGATIVE) U Cocaine Metab Screen (NEGATIVE) U Marijuana (THC) Screen (NEGATIVE) Diaz Results last 24 hrs: Microbiology 01/16/17 19:38 Stool for WBCs - Final Stool / Feces NO WBC SEEN Med Orders - Current: Current Medications Acetaminophen (Tylenol) 650 mg PO Q4H PRN PRN Reason: Pain (Mild 1-3)/fever Hydrocodone Bitart/Acetaminophen (Hume 325-5 Mg) 1 tab PO Q4H PRN PRN Reason: Pain (moderate 4-6) Last Admin: 01/17/17 04:18 Dose: 1 tab Al Hydroxide/Mg Hydroxide (Mag-Al Plus) 30 ml PO Q4H PRN PRN Reason: Heartburn Last Admin: 01/17/17 01:40 Dose: 30 ml Albuterol/Ipratropium (Duoneb 3.0-0.5 Mg/3 Ml) 3 ml NEB Q4H PRN PRN Reason: Shortness Of Breath/wheezing Enoxaparin Sodium (Lovenox) 40 mg SUBCUT DAILY [facility] Famotidine (Pepcid) 20 mg PO BID [facility] Hydromorphone HCl (Dilaudid) 0.25 mg IVPUSH Q2H PRN PRN Reason: Pain (severe 7-10) Last Admin: 01/17/17 06:51 Dose: 0.25 mg Dextrose/Sodium Chloride (Dextrose 5%-1/2 Ns) 1,000 mls @ 125 mls/hr IV ASDIRECTED [facility] Last Admin: 01/17/17 02:22 Dose: 125 mls/hr Promethazine HCl 12.5 mg/ (Sodium Chloride) 50.5 mls @ 100 mls/hr IV Q6H PRN PRN Reason: Nausea/Vomiting Last Admin: 01/17/17 05:31 Dose: 100 mls/hr Magnesium Sulfate (Pharmacy To Dose - Magnesium Replacement) 1 dose .XX ASDIRECTED [facility] Metoclopramide HCl (Reglan) 5 mg IVPUSH TID PRN PRN Reason: Nausea/Cramping Metronidazole (Flagyl) 500 mg PO Q8H [facility] Last Admin: 01/17/17 00:22 Dose: 500 mg Miscellaneous Information (Remove Patch) 1 ea TRDERM DAILY [facility] Nicotine (Habitrol) 21 mg TRDERM DAILY [facility] Last Admin: 01/16/17 20:00 Dose: 21 mg Ondansetron HCl (Zofran) 4 mg IV Q6H PRN PRN Reason: Nausea/Vomiting Last Admin: 01/17/17 00:06 Dose: 4 mg Potassium Chloride (Pharmacy To Dose - Potassium Replacement) 1 dose .XX ASDIRECTED [facility] Saccharomyces Boulardii (Florastor) 250 mg PO BID [facility] Temazepam (Restoril) 30 mg PO BEDTIME PRN PRN Reason: Sleep Last Admin: 01/16/17 21:02 Dose: 30 mg Discontinued Medications Al Hydroxide/Mg Hydroxide 30 (ml/ Lidocaine HCl 15 ml) 0 ml PO ONETIME ONE Stop: 01/16/17 14:13 Last Admin: 01/16/17 15:46 Dose: 45 ml Hydromorphone HCl (Dilaudid) 0.5 mg IVPUSH ONETIME ONE Stop: 01/16/17 16:29 Last Admin: 01/16/17 16:35 Dose: 0.5 mg Lactated Ringer's (Ringers, Lactated) 1,000 mls @ 999 mls/hr IV .BOLUS ONE Stop: 01/16/17 15:14 Last Admin: 01/16/17 14:55 Dose: 999 mls/hr Influenza Virus Vaccine (Fluzone/Fluarix 2016 Vaccine) 60 mcg IM .ONCE ONE Stop: 01/16/17 17:51 Metoclopramide HCl (Reglan) 5 mg IVPUSH ONETIME ONE Stop: 01/16/17 14:55 Last Admin: 01/16/17 14:57 Dose: 5 mg Metoclopramide HCl (Reglan) 5 mg IVPUSH ONETIME ONE Stop: 01/16/17 15:15 Last Admin: 01/16/17 15:23 Dose: 5 mg Pantoprazole Sodium (Protonix Iv) 40 mg IVPUSH ONETIME ONE Stop: 01/17/17 06:31 Last Admin: 01/17/17 06:40 Dose: 40 mg Pneumococcal Polyvalent Vaccine (Pneumovax 23) 0.5 ml IM .ONCE ONE Stop: 01/16/17 17:51 Scopolamine (Transderm-Scop) 1.5 mg TOP ONETIME ONE Stop: 01/16/17 17:00 Last Admin: 01/16/17 18:17 Dose: 1.5 mg Sucralfate (Carafate) 1 gm PO ONETIME ONE Stop: 01/16/17 16:36 Last Admin: 01/16/17 18:18 Dose: 1 gm - Exam General: alert, oriented, cooperative, no acute distress HEENT: Pupils equal, Pupils reactive, EOMI, Mucous membr. moist/pink Neck: supple Lungs: Normal respiratory effort, Wheezing Cardiovascular: Regular Rate, Regular Rhythm Abdomen: soft, no distension, tenderness, abnormal bowel sounds. No: rigidity, rebound, guarding, organomegaly (Male) Exam: Deferred Back Exam: normal inspection, full range of motion, decreased range of motion Extremities: no edema, normal pulses, no tenderness/swelling, no clubbing, no cyanosis, no calf tenderness Skin: warm, dry, intact Neurological: no new focal deficit Psy/Mental Status: alert, normal affect, normal mood - Problem List Review Problem List Initiated/Reviewed/Updated: Yes - My Orders Last 24 Hours: My Active Orders 01/16/17 16:54 Intake and Output [RC] 0400,1600 Oxygen Therapy [RC] PRN Up With Assistance [RC] Q8H Up ad Gissel [RC] BID VTE/DVT Education [RC] DAILY Acetaminophen [Tylenol] 650 mg PO Q4H PRN Acetaminophen/HYDROcodone [Hume 325-5 MG] 1 tab PO Q4H PRN Albuterol/Ipratropium [DuoNeb 3.0-0.5 MG/3 ML] 3 ml NEB Q4H PRN HYDROmorphone [Dilaudid] 0.25 mg IVPUSH Q2H PRN Ondansetron [Zofran] 4 mg IV Q6H PRN Promethazine [Phenergan] 12.5 mg Sodium Chloride 0.9% [Normal Saline] 50 ml IV Q6H Resuscitation Status Routine 01/16/17 16:56 RT Aerosol Therapy [RC] ASDIRECTED 01/16/17 16:57 Consult to Case Management [CONS] Routine Consult to [employer] [CONS] Routine 01/16/17 17:00 Dextrose 5%-0.45% NaCl [Dextrose 5%-1/2 NS] 1,000 ml IV ASDIRECTED metroNIDAZOLE [Flagyl] 500 mg PO Q8H 01/16/17 17:10 Isolation [COMM] Routine 01/16/17 19:38 OVA & PARASITES BY IMMUNOASSAY [MREF] Stat 01/16/17 19:45 Nicotine [Habitrol] 21 mg TRDERM DAILY 01/16/17 21:00 Temazepam [Restoril] 30 mg PO BEDTIME PRN 01/16/17 Dinner Nothing per Oral Now Diet [DIET] 01/17/17 01:31 CULTURE URINE [RM] Routine 01/17/17 01:34 Alum Hydrox/Mag Hydrox/Simeth [Mag-Al Plus] 30 ml PO Q4H PRN 01/17/17 01:52 Heat Therapy [OM.PC] Routine 01/17/17 08:45 Magnesium Rep Pharmacy to Dose [Pharmacy to Dose - Magnesium Replacement] 1 dose .XX ASDIRECTED Potassium Rep Pharmacy to Dose [Pharmacy to Dose - Potassium Replacement] 1 dose .XX ASDIRECTED 01/17/17 09:00 Enoxaparin [Lovenox] 40 mg SUBCUT DAILY Remove Patch 1 ea TRDERM DAILY 01/18/17 05:11 BASIC METABOLIC PANEL,BMP [CHEM] AM C-REACTIVE PROTEIN [CHEM] AM CBC WITH AUTO DIFF [HEME] AM MAGNESIUM [CHEM] AM 01/19/17 05:11 BASIC METABOLIC PANEL,BMP [CHEM] AM C-REACTIVE PROTEIN [CHEM] AM CBC WITH AUTO DIFF [HEME] AM MAGNESIUM [CHEM] AM 01/20/17 05:11 BASIC METABOLIC PANEL,BMP [CHEM] AM C-REACTIVE PROTEIN [CHEM] AM CBC WITH AUTO DIFF [HEME] AM MAGNESIUM [CHEM] AM 01/20/17 07:00 CBC W/O DIFF,HEMOGRAM [HEME] MOTH@0700 01/21/17 05:11 BASIC METABOLIC PANEL,BMP [CHEM] AM C-REACTIVE PROTEIN [CHEM] AM CBC WITH AUTO DIFF [HEME] AM MAGNESIUM [CHEM] AM 01/23/17 07:00 CBC W/O DIFF,HEMOGRAM [HEME] MOTH@0700 01/27/17 07:00 CBC W/O DIFF,HEMOGRAM [HEME] MOTH@0700 01/30/17 07:00 CBC W/O DIFF,HEMOGRAM [HEME] MOTH@0700 02/03/17 07:00 CBC W/O DIFF,HEMOGRAM [HEME] MOTH@0700 02/06/17 07:00 CBC W/O DIFF,HEMOGRAM [HEME] MOTH@0700 - Plan Plan:: Assessment/Plan: Acute: Clostridium Difficile Infection - Risk factor: Recent Abx Use - Has had previous hx/o it in the past (a year ago) - D/c Quinolones - Continue oral flagyl 500 mg Q8 C. Difficile Associated Diarrhea - Still having diarrhea - Continue supportive care - OP and fecal WBC - He is not a local here Abdominal Pain and Cramps - 2/2 Above - Pain is not controlled, he has low threshold of pain due to hx/o illicit drug use - Will adjust pain medications, cautioned patient on narcotic use due to GI side effects - KUB: no acute abnormal findings Intractable Nausea and Vomiting - Still symptomatic but better - Continue PRN Anti-emesis and Supportive Care - NPO except meds, ice chips and sips of water Leukocytosis - Improving: WBC 16--> 10 - Likely 2/2 Steroid Use - Hold oral steroids Nicotine Dependence - Smoke 1ppd - Nicotine patch daily Electrolytes Abnormality - Hypokalemia (K 3.3) and Hypomagnesemia (Mg 1.7) - 2/2 GI Loss - Pharmacy to monitor and replete Resolved: S/p Coffee Ground Emesis - Gastro-occult pos Chronic: Hx/o Heroin Abuse Plan: He is clinically stable Continue current treatment Will try clear liquids sometime today once his symptom is better Routine AM Labs SW/CM for d/c planning Additional orders as above
[2017-01-17] MEDS ORDERED: Magnesium Sulfate/Water 2 GM in Premix Bag 1 BAG IV ONE (08:45)
[2017-01-17] MEDS ORDERED: Nicotine 21 MG/24 Hr Patch TRDERM SCH (09:00)
[2017-01-17] MEDS: Famotidine 20 MG Tab PO SCH ×2 (09:30→20:10)
[2017-01-17] MEDS: Potassium Chloride 20 MEQ Tab.ER PO SCH ×2 (09:30→12:06)
[2017-01-17] MEDS: Enoxaparin 40 MG/0.4 ML Syringe SUBCUT SCH (09:31)
[2017-01-17] MEDS: Nicotine 21 MG/24 Hr Patch TRDERM SCH (09:31)
[2017-01-17] MEDS: Saccharomyces Boulardii (Probiotic) 250 MG Cap PO SCH ×2 (09:32→20:10)
[2017-01-17] MEDS: Metoclopramide 10 MG/2 ML SDV IVPUSH PRN (16:03)
[2017-01-17] MEDS: HYDROmorphone 1 MG/ML Syringe IVPUSH PRN ×2 (16:04→22:33)
[2017-01-17] MEDS: oxyCODONE ER 20 MG TAB.ER PO SCH (20:10)
[2017-01-18] MEDS: metroNIDAZOLE 500 MG Tab PO SCH ×3 (01:20→16:21)
[2017-01-18] MEDS: Metoclopramide 10 MG/2 ML SDV IVPUSH PRN ×3 (01:34→17:42)
[2017-01-18] MEDS: Dextrose 5%-0.45% NaCl 1,000 ML IV SCH ×3 (01:34→17:41)
[2017-01-18] MEDS: HYDROmorphone 1 MG/ML Syringe IVPUSH PRN ×3 (05:11→17:42)
[2017-01-18] MEDS: Albuterol/Ipratropium 3.0-0.5 MG/3 ML Neb Soln NEB PRN ×3 (06:04→22:22)
--- NOTE | 2017-01-18 08:04 | PCM.PN ---
- General Info Date of Service: 01/18/17 Admission Dx/Problem (Free Text): Admission Diagnosis/Problem Admission Diagnosis/Problem Vomiting Subjective Update: Follow Up Functional Status: Reports: pain controlled, ambulating, urinating. Denies: new symptoms - Review of Systems General: Denies: Fever, Chills HEENT: Reports: no symptoms Pulmonary: Denies: shortness of breath Cardiovascular: Denies: Chest Pain Gastrointestinal: Reports: Diarrhea. Denies: Abdominal pain, Difficulty swallowing, Nausea, Vomiting Genitourinary: Reports: no symptoms Musculoskeletal: Reports: no symptoms Skin: Reports: no symptoms Neurological: Denies: Confusion, Seizure, Difficulty Walking, Weakness Psychiatric: Denies: depression, anxiety, hallucinations Systems Review Comment:: No overnight issues. He feels he is getting better. His pain is controlled. She is no longer nauseous. His bowel is loose and is now having less diarrhea. He is afebrile w/o leukocytosis. - Patient Data Vitals - most recent: Last Vital Signs Temp 37.2 C 01/18/17 05:25 Pulse 48 L 01/18/17 06:04 Resp 18 01/18/17 05:25 BP 103/71 01/18/17 05:25 Pulse Ox 100 01/18/17 06:04 Weight - most recent: 64.455 kg I&O - last 24 hours: Intake & Output 01/17/17 01/18/17 01/18/17 22:59 06:59 14:59 Intake Total 1660 1761 Output Total 900 1025 Balance 760 736 Lab Results last 24 hrs: Laboratory Results - last 24 hr 01/18/17 01/18/17 Range/Units 05:32 05:32 WBC 8.68 (4.23-9.07) K/mm3 RBC 4.59 L (4.63-6.08) M/mm3 Hgb 14.0 (13.7-17.5) gm/L Hct 41.2 (40.1-51.0) % MCV 89.8 (79.0-92.2) fl MCH 30.5 (25.7-32.2) pg MCHC 34.0 (32.2-35.5) g/dl RDW Std Deviation 44.2 H (35.1-43.9) fL Plt Count 207 (163-337) K/mm3 MPV 10.4 (9.4-12.3) fl Neut % (Auto) 47.3 (34.0-67.9) % Lymph % (Auto) 43.0 (21.8-53.1) % [place] % (Auto) 7.4 (5.3-12.2) % Eos % (Auto) 1.5 (0.8-7.0) Baso % (Auto) 0.5 (0.1-1.2) % Neut # (Auto) 4.11 (1.78-5.38) K/mm3 Lymph # (Auto) 3.73 H (1.32-3.57) K/mm3 [place] # (Auto) 0.64 (0.30-0.82) K/mm3 Eos # (Auto) 0.13 (0.04-0.54) K/mm3 Baso # (Auto) 0.04 (0.01-0.08) K/mm3 Sodium 141 (136-145) mEq/L Potassium 3.5 (3.5-5.1) mEq/L Chloride 108 H (98-107) mEq/L Carbon Dioxide 28 (21-32) mEq/L Anion Gap 8.5 (5-15) BUN 6 L (7-18) mg/dL Creatinine 1.0 (0.7-1.3) mg/dL Est Cr Clr Drug Dosing 94.00 mL/min Estimated GFR (MDRD) > 60 (>60) mL/min BUN/Creatinine Ratio 6.0 L (14-18) Glucose 98 (74-106) mg/dL Calcium 8.1 L (8.5-10.1) mg/dL Magnesium 2.0 (1.8-2.4) mg/dl C-Reactive Protein < 0.2 (<1.0) mg/dL Med Orders - Current: Current Medications Acetaminophen (Tylenol) 650 mg PO Q4H PRN PRN Reason: Pain (Mild 1-3)/fever Hydrocodone Bitart/Acetaminophen (Leslie 325-5 Mg) 1 tab PO Q4H PRN PRN Reason: Pain (moderate 4-6) Last Admin: 01/17/17 16:03 Dose: 1 tab Al Hydroxide/Mg Hydroxide (Mag-Al Plus) 30 ml PO Q4H PRN PRN Reason: Heartburn Last Admin: 01/17/17 01:40 Dose: 30 ml Albuterol/Ipratropium (Duoneb 3.0-0.5 Mg/3 Ml) 3 ml NEB Q4H PRN PRN Reason: Shortness Of Breath/wheezing Last Admin: 01/18/17 06:04 Dose: 3 ml Enoxaparin Sodium (Lovenox) 40 mg SUBCUT DAILY [facility] Last Admin: 01/17/17 09:31 Dose: 40 mg Famotidine (Pepcid) 20 mg PO BID [facility] Last Admin: 01/17/17 20:10 Dose: 20 mg Hydromorphone HCl (Dilaudid) 1 mg IVPUSH Q6H PRN PRN Reason: Pain (severe 7-10) Last Admin: 01/18/17 05:11 Dose: 1 mg Dextrose/Sodium Chloride (Dextrose 5%-1/2 Ns) 1,000 mls @ 125 mls/hr IV ASDIRECTED [facility] Last Admin: 01/18/17 01:34 Dose: 125 mls/hr Magnesium Sulfate (Pharmacy To Dose - Magnesium Replacement) 1 dose .XX ASDIRECTED [facility] Metoclopramide HCl (Reglan) 10 mg IVPUSH Q6H PRN PRN Reason: Nausea/Cramping Last Admin: 01/18/17 01:34 Dose: 10 mg Metronidazole (Flagyl) 500 mg PO Q8H [facility] Last Admin: 01/18/17 01:20 Dose: 500 mg Miscellaneous Information (Remove Patch) 1 ea TRDERM DAILY [facility] Last Admin: 01/17/17 09:41 Dose: 1 ea Nicotine (Habitrol) 21 mg TRDERM DAILY [facility] Last Admin: 01/17/17 09:31 Dose: 21 mg Ondansetron HCl (Zofran) 4 mg IV Q6H PRN PRN Reason: Nausea/Vomiting Last Admin: 01/17/17 12:06 Dose: 4 mg Oxycodone HCl (Oxycontin) 20 mg PO Q12HR [facility] Last Admin: 01/17/17 20:10 Dose: 20 mg Potassium Chloride (Pharmacy To Dose - Potassium Replacement) 1 dose .XX ASDIRECTED [facility] Saccharomyces Boulardii (Florastor) 250 mg PO BID [facility] Last Admin: 01/17/17 20:10 Dose: 250 mg Temazepam (Restoril) 30 mg PO BEDTIME PRN PRN Reason: Sleep Last Admin: 01/16/17 21:02 Dose: 30 mg Discontinued Medications Al Hydroxide/Mg Hydroxide 30 (ml/ Lidocaine HCl 15 ml) 0 ml PO ONETIME ONE Stop: 01/16/17 14:13 Last Admin: 01/16/17 15:46 Dose: 45 ml Hydromorphone HCl (Dilaudid) 0.5 mg IVPUSH ONETIME ONE Stop: 01/16/17 16:29 Last Admin: 01/16/17 16:35 Dose: 0.5 mg Hydromorphone HCl (Dilaudid) 0.25 mg IVPUSH Q2H PRN PRN Reason: Pain (severe 7-10) Last Admin: 01/17/17 12:05 Dose: 0.25 mg Lactated Ringer's (Ringers, Lactated) 1,000 mls @ 999 mls/hr IV .BOLUS ONE Stop: 01/16/17 15:14 Last Admin: 01/16/17 14:55 Dose: 999 mls/hr Promethazine HCl 12.5 mg/ (Sodium Chloride) 50.5 mls @ 100 mls/hr IV Q6H PRN PRN Reason: Nausea/Vomiting Last Admin: 01/17/17 05:31 Dose: 100 mls/hr Magnesium Sulfate 2 gm/ Premix 50 mls @ 25 mls/hr IV ONETIME ONE Stop: 01/17/17 10:44 Last Admin: 01/17/17 09:30 Dose: 25 mls/hr Influenza Virus Vaccine (Fluzone/Fluarix Vaccine) 60 mcg IM .ONCE ONE Stop: 01/16/17 17:51 Metoclopramide HCl (Reglan) 5 mg IVPUSH ONETIME ONE Stop: 01/16/17 14:55 Last Admin: 01/16/17 14:57 Dose: 5 mg Metoclopramide HCl (Reglan) 5 mg IVPUSH ONETIME ONE Stop: 01/16/17 15:15 Last Admin: 01/16/17 15:23 Dose: 5 mg Metoclopramide HCl (Reglan) 5 mg IVPUSH TID PRN PRN Reason: Nausea/Cramping Last Admin: 01/17/17 09:33 Dose: 5 mg Pantoprazole Sodium (Protonix Iv) 40 mg IVPUSH ONETIME ONE Stop: 01/17/17 06:31 Last Admin: 01/17/17 06:40 Dose: 40 mg Pneumococcal Polyvalent Vaccine (Pneumovax 23) 0.5 ml IM .ONCE ONE Stop: 01/16/17 17:51 Potassium Chloride (Klor-Con M20) 20 meq PO Q3H [facility] Stop: 01/17/17 11:46 Last Admin: 01/17/17 12:06 Dose: 20 meq Scopolamine (Transderm-Scop) 1.5 mg TOP ONETIME ONE Stop: 01/16/17 17:00 Last Admin: 01/16/17 18:17 Dose: 1.5 mg Sucralfate (Carafate) 1 gm PO ONETIME ONE Stop: 01/16/17 16:36 Last Admin: 01/16/17 18:18 Dose: 1 gm - Exam General: alert, oriented, cooperative, no acute distress HEENT: Pupils equal, Pupils reactive, EOMI, Mucous membr. moist/pink Neck: supple, trachea midline, no JVD, no thyromegaly Lungs: Normal respiratory effort, Wheezing Cardiovascular: Regular Rate, Regular Rhythm Abdomen: bowel sounds present, soft, no tenderness, no distension (Male) Exam: Deferred Back Exam: normal inspection, decreased range of motion Extremities: no edema, normal pulses, no tenderness/swelling, no clubbing, no cyanosis, no calf tenderness Skin: warm, dry, intact, other (multiple tattoos all over his body) Neurological: no new focal deficit Psy/Mental Status: alert, normal affect, normal mood - Problem List Review Problem List Initiated/Reviewed/Updated: Yes - My Orders Last 24 Hours: My Active Orders 01/17/17 08:45 Magnesium Rep Pharmacy to Dose [Pharmacy to Dose - Magnesium Replacement] 1 dose .XX ASDIRECTED Potassium Rep Pharmacy to Dose [Pharmacy to Dose - Potassium Replacement] 1 dose .XX ASDIRECTED 01/17/17 09:00 Enoxaparin [Lovenox] 40 mg SUBCUT DAILY Remove Patch 1 ea TRDERM DAILY 01/17/17 12:57 Consult to Dietary [Consult to Imposer] [CONS] Routine 01/17/17 13:24 HYDROmorphone [Dilaudid] 1 mg IVPUSH Q6H PRN Metoclopramide [Reglan] 10 mg IVPUSH Q6H PRN 01/17/17 21:00 oxyCODONE ER [OxyCONTIN] 20 mg PO Q12HR 01/19/17 05:11 BASIC METABOLIC PANEL,BMP [CHEM] AM C-REACTIVE PROTEIN [CHEM] AM CBC WITH AUTO DIFF [HEME] AM MAGNESIUM [CHEM] AM 01/20/17 05:11 BASIC METABOLIC PANEL,BMP [CHEM] AM C-REACTIVE PROTEIN [CHEM] AM CBC WITH AUTO DIFF [HEME] AM MAGNESIUM [CHEM] AM 01/20/17 07:00 CBC W/O DIFF,HEMOGRAM [HEME] MOTH@0700 01/21/17 05:11 BASIC METABOLIC PANEL,BMP [CHEM] AM C-REACTIVE PROTEIN [CHEM] AM CBC WITH AUTO DIFF [HEME] AM MAGNESIUM [CHEM] AM 01/23/17 07:00 CBC W/O DIFF,HEMOGRAM [HEME] MOTH@0700 01/27/17 07:00 CBC W/O DIFF,HEMOGRAM [HEME] MOTH@0700 01/30/17 07:00 CBC W/O DIFF,HEMOGRAM [HEME] MOTH@0700 02/03/17 07:00 CBC W/O DIFF,HEMOGRAM [HEME] MOTH@0700 02/06/17 07:00 CBC W/O DIFF,HEMOGRAM [HEME] MOTH@0700 - Plan Plan:: Assessment/Plan: Acute: Clostridium Difficile Infection - Improving - Risk factor: Recent Abx Use - Has had previous hx/o it in the past (a year ago) - D/c Quinolones - Continue oral flagyl 500 mg Q8 C. Difficile Associated Diarrhea - Improving with less diarrhea - Continue supportive care - OP pending - Fecal WBC: negative - He is not a local here Abdominal Pain and Cramps - 2/2 Above - Pain is now controlled - Continue current pain regimen - KUB: no acute abnormal findings Nicotine Dependence - Smoke 1ppd - Nicotine patch daily Resolved: S/p Coffee Ground Emesis - Gastro-occult pos S/p Intractable Nausea and Vomiting - Still symptomatic but better - Continue PRN Anti-emesis and Supportive Care - NPO except meds, ice chips and sips of water S/p Leukocytosis - Improving: WBC 16--> 10 - Likely 2/2 Steroid Use - Hold oral steroids S/p Electrolytes Abnormality - Hypokalemia (K 3.3) and Hypomagnesemia (Mg 1.7) - 2/2 GI Loss - Pharmacy to monitor and replete Chronic: Hx/o Heroin Abuse Plan: He remains clinically stable Continue current treatment Advanced diet as tolerated Routine AM Labs SW/CM for d/c planning Additional orders as above Possible d/c in 1-2 days if he continues to get better
[2017-01-18] MEDS: oxyCODONE ER 20 MG TAB.ER PO SCH ×2 (08:39→21:27)
[2017-01-18] MEDS: Saccharomyces Boulardii (Probiotic) 250 MG Cap PO SCH ×2 (08:39→21:28)
[2017-01-18] MEDS: Nicotine 21 MG/24 Hr Patch TRDERM SCH (08:39)
[2017-01-18] MEDS: Famotidine 20 MG Tab PO SCH ×2 (08:39→21:27)
[2017-01-18] MEDS: Enoxaparin 40 MG/0.4 ML Syringe SUBCUT SCH (08:40)
[2017-01-18] MEDS: Ondansetron 4 MG/2 ML SDV IV PRN ×2 (12:37→21:30)
[2017-01-18] MEDS: Acetaminophen/HYDROcodone 325-5 MG Tab PO PRN (21:28)
[2017-01-18] MEDS: Temazepam 30 MG Cap PO PRN (22:20)
[2017-01-19] MEDS: HYDROmorphone 1 MG/ML Syringe IVPUSH PRN ×3 (01:23→18:25)
[2017-01-19] MEDS: Dextrose 5%-0.45% NaCl 1,000 ML IV SCH ×3 (01:27→18:27)
[2017-01-19] MEDS: metroNIDAZOLE 500 MG Tab PO SCH ×3 (01:31→16:07)
[2017-01-19] MEDS: Metoclopramide 10 MG/2 ML SDV IVPUSH PRN ×2 (01:44→09:27)
[2017-01-19] MEDS: Ondansetron 4 MG/2 ML SDV IV PRN ×3 (03:34→18:25)
[2017-01-19] MEDS: Acetaminophen/HYDROcodone 325-5 MG Tab PO PRN ×2 (03:51→16:07)
--- NOTE | 2017-01-19 07:53 | PCM.PN ---
- General Info Date of Service: 01/19/17 Admission Dx/Problem (Free Text): Admission Diagnosis/Problem Admission Diagnosis/Problem Vomiting Subjective Update: Follow Up Functional Status: Reports: pain controlled, tolerating diet, ambulating, urinating. Denies: new symptoms - Review of Systems General: Denies: Fever, Chills HEENT: Reports: no symptoms Pulmonary: Denies: shortness of breath Cardiovascular: Denies: Chest Pain Gastrointestinal: Reports: Abdominal pain, Diarrhea, Flatus, Nausea. Denies: Decreased appetite, Difficulty swallowing, Vomiting Genitourinary: Reports: no symptoms Musculoskeletal: Reports: no symptoms Skin: Reports: no symptoms Neurological: Denies: Confusion, Difficulty Walking, Weakness Psychiatric: Denies: depression, anxiety, hallucinations Systems Review Comment:: No overnight issues. He feels like he continues to get better. His diarrhea is getting lesser and more loose now. He had a good night but did not like the restoril. His pain is controlled. He is tolerating current diet. He is also ambulating down the haines. - Patient Data Vitals - most recent: Last Vital Signs Temp 36.8 C 01/19/17 03:42 Pulse 68 01/19/17 03:42 Resp 16 01/19/17 03:42 BP 101/65 01/19/17 03:42 Pulse Ox 93 L 01/19/17 03:42 Weight - most recent: 64.682 kg I&O - last 24 hours: Intake & Output 01/18/17 01/19/17 01/19/17 22:59 06:59 14:59 Intake Total 2247 1793 Balance 2247 1793 Lab Results last 24 hrs: Laboratory Results - last 24 hr 01/19/17 01/19/17 Range/Units 04:38 04:38 WBC 6.46 (4.23-9.07) K/mm3 RBC 4.33 L (4.63-6.08) M/mm3 Hgb 13.2 L (13.7-17.5) gm/L Hct 38.6 L (40.1-51.0) % MCV 89.1 (79.0-92.2) fl MCH 30.5 (25.7-32.2) pg MCHC 34.2 (32.2-35.5) g/dl RDW Std Deviation 43.0 (35.1-43.9) fL Plt Count 195 (163-337) K/mm3 MPV 10.6 (9.4-12.3) fl Neut % (Auto) 41.3 (34.0-67.9) % Lymph % (Auto) 47.5 (21.8-53.1) % [place] % (Auto) 7.4 (5.3-12.2) % Eos % (Auto) 3.1 (0.8-7.0) Baso % (Auto) 0.5 (0.1-1.2) % Neut # (Auto) 2.67 (1.78-5.38) K/mm3 Lymph # (Auto) 3.07 (1.32-3.57) K/mm3 [place] # (Auto) 0.48 (0.30-0.82) K/mm3 Eos # (Auto) 0.20 (0.04-0.54) K/mm3 Baso # (Auto) 0.03 (0.01-0.08) K/mm3 Sodium 144 (136-145) mEq/L Potassium 3.2 L (3.5-5.1) mEq/L Chloride 110 H (98-107) mEq/L Carbon Dioxide 25 (21-32) mEq/L Anion Gap 12.2 (5-15) BUN 4 L (7-18) mg/dL Creatinine 0.9 (0.7-1.3) mg/dL Est Cr Clr Drug Dosing 104.44 mL/min Estimated GFR (MDRD) > 60 (>60) mL/min BUN/Creatinine Ratio 4.4 L (14-18) Glucose 103 (74-106) mg/dL Calcium 7.8 L (8.5-10.1) mg/dL Magnesium 2.0 (1.8-2.4) mg/dl C-Reactive Protein < 0.2 (<1.0) mg/dL Diaz Results last 24 hrs: Microbiology 01/16/17 19:38 Urine Culture - Preliminary Urine, Clean Catch NO GROWTH AFTER 1 DAY Med Orders - Current: Current Medications Acetaminophen (Tylenol) 650 mg PO Q4H PRN PRN Reason: Pain (Mild 1-3)/fever Hydrocodone Bitart/Acetaminophen ([place] 325-5 Mg) 1 tab PO Q4H PRN PRN Reason: Pain (moderate 4-6) Last Admin: 01/19/17 03:51 Dose: 1 tab Al Hydroxide/Mg Hydroxide (Mag-Al Plus) 30 ml PO Q4H PRN PRN Reason: Heartburn Last Admin: 01/17/17 01:40 Dose: 30 ml Albuterol/Ipratropium (Duoneb 3.0-0.5 Mg/3 Ml) 3 ml NEB Q4H PRN PRN Reason: Shortness Of Breath/wheezing Last Admin: 01/18/17 22:22 Dose: 3 ml Enoxaparin Sodium (Lovenox) 40 mg SUBCUT DAILY [facility] Last Admin: 01/18/17 08:40 Dose: 40 mg Famotidine (Pepcid) 20 mg PO BID [facility] Last Admin: 01/18/17 21:27 Dose: 20 mg Hydromorphone HCl (Dilaudid) 1 mg IVPUSH Q6H PRN PRN Reason: Pain (severe 7-10) Last Admin: 01/19/17 01:23 Dose: 1 mg Dextrose/Sodium Chloride (Dextrose 5%-1/2 Ns) 1,000 mls @ 125 mls/hr IV ASDIRECTED [facility] Last Admin: 01/19/17 01:27 Dose: 125 mls/hr Magnesium Sulfate (Pharmacy To Dose - Magnesium Replacement) 1 dose .XX ASDIRECTED [facility] Metoclopramide HCl (Reglan) 10 mg IVPUSH Q6H PRN PRN Reason: Nausea/Cramping Last Admin: 01/19/17 01:44 Dose: 10 mg Metronidazole (Flagyl) 500 mg PO Q8H [facility] Last Admin: 01/19/17 01:31 Dose: 500 mg Miscellaneous Information (Remove Patch) 1 ea TRDERM DAILY [facility] Last Admin: 01/18/17 08:40 Dose: 1 ea Nicotine (Habitrol) 21 mg TRDERM DAILY [facility] Last Admin: 01/18/17 08:39 Dose: 21 mg Ondansetron HCl (Zofran) 4 mg IV Q6H PRN PRN Reason: Nausea/Vomiting Last Admin: 01/19/17 03:34 Dose: 4 mg Oxycodone HCl (Oxycontin) 20 mg PO Q12HR [facility] Last Admin: 01/18/17 21:27 Dose: 20 mg Potassium Chloride (Pharmacy To Dose - Potassium Replacement) 1 dose .XX ASDIRECTED [facility] Saccharomyces Boulardii (Florastor) 250 mg PO BID [facility] Last Admin: 01/18/17 21:28 Dose: 250 mg Temazepam (Restoril) 30 mg PO BEDTIME PRN PRN Reason: Sleep Last Admin: 01/18/17 22:20 Dose: 30 mg Discontinued Medications Al Hydroxide/Mg Hydroxide 30 (ml/ Lidocaine HCl 15 ml) 0 ml PO ONETIME ONE Stop: 01/16/17 14:13 Last Admin: 01/16/17 15:46 Dose: 45 ml Hydromorphone HCl (Dilaudid) 0.5 mg IVPUSH ONETIME ONE Stop: 01/16/17 16:29 Last Admin: 01/16/17 16:35 Dose: 0.5 mg Hydromorphone HCl (Dilaudid) 0.25 mg IVPUSH Q2H PRN PRN Reason: Pain (severe 7-10) Last Admin: 01/17/17 12:05 Dose: 0.25 mg Lactated Ringer's (Ringers, Lactated) 1,000 mls @ 999 mls/hr IV .BOLUS ONE Stop: 01/16/17 15:14 Last Admin: 01/16/17 14:55 Dose: 999 mls/hr Promethazine HCl 12.5 mg/ (Sodium Chloride) 50.5 mls @ 100 mls/hr IV Q6H PRN PRN Reason: Nausea/Vomiting Last Admin: 01/17/17 05:31 Dose: 100 mls/hr Magnesium Sulfate 2 gm/ Premix 50 mls @ 25 mls/hr IV ONETIME ONE Stop: 01/17/17 10:44 Last Admin: 01/17/17 09:30 Dose: 25 mls/hr Influenza Virus Vaccine (Fluzone/Fluarix Vaccine) 60 mcg IM .ONCE ONE Stop: 01/16/17 17:51 Metoclopramide HCl (Reglan) 5 mg IVPUSH ONETIME ONE Stop: 01/16/17 14:55 Last Admin: 01/16/17 14:57 Dose: 5 mg Metoclopramide HCl (Reglan) 5 mg IVPUSH ONETIME ONE Stop: 01/16/17 15:15 Last Admin: 01/16/17 15:23 Dose: 5 mg Metoclopramide HCl (Reglan) 5 mg IVPUSH TID PRN PRN Reason: Nausea/Cramping Last Admin: 01/17/17 09:33 Dose: 5 mg Pantoprazole Sodium (Protonix Iv) 40 mg IVPUSH ONETIME ONE Stop: 01/17/17 06:31 Last Admin: 01/17/17 06:40 Dose: 40 mg Pneumococcal Polyvalent Vaccine (Pneumovax 23) 0.5 ml IM .ONCE ONE Stop: 01/16/17 17:51 Potassium Chloride (Klor-Con M20) 20 meq PO Q3H [facility] Stop: 01/17/17 11:46 Last Admin: 01/17/17 12:06 Dose: 20 meq Scopolamine (Transderm-Scop) 1.5 mg TOP ONETIME ONE Stop: 01/16/17 17:00 Last Admin: 01/16/17 18:17 Dose: 1.5 mg Sucralfate (Carafate) 1 gm PO ONETIME ONE Stop: 01/16/17 16:36 Last Admin: 01/16/17 18:18 Dose: 1 gm - Exam General: alert, oriented, cooperative, no acute distress HEENT: Pupils equal, Pupils reactive, EOMI, Mucous membr. moist/pink Neck: supple, trachea midline, no JVD Lungs: Normal respiratory effort, Wheezing Cardiovascular: Regular Rate, Regular Rhythm Abdomen: bowel sounds present, soft, no distension, tenderness, abnormal bowel sounds (hyperactive). No: rigidity, rebound, guarding (Male) Exam: Deferred Back Exam: normal inspection, full range of motion Extremities: no edema, normal pulses, no tenderness/swelling, no clubbing, no cyanosis, no calf tenderness Skin: warm, dry, intact, other (multiple skin tattoos). No: rash, ecchymosis Neurological: no new focal deficit Psy/Mental Status: alert, normal affect, normal mood - Problem List Review Problem List Initiated/Reviewed/Updated: Yes - My Orders Last 24 Hours: My Active Orders 01/18/17 Lunch Clear Liquid Diet [DIET] 01/20/17 05:11 BASIC METABOLIC PANEL,BMP [CHEM] AM C-REACTIVE PROTEIN [CHEM] AM CBC WITH AUTO DIFF [HEME] AM MAGNESIUM [CHEM] AM 01/20/17 07:00 CBC W/O DIFF,HEMOGRAM [HEME] MOTH@0700 01/21/17 05:11 BASIC METABOLIC PANEL,BMP [CHEM] AM C-REACTIVE PROTEIN [CHEM] AM CBC WITH AUTO DIFF [HEME] AM MAGNESIUM [CHEM] AM 01/23/17 07:00 CBC W/O DIFF,HEMOGRAM [HEME] MOTH@0700 01/27/17 07:00 CBC W/O DIFF,HEMOGRAM [HEME] MOTH@0700 01/30/17 07:00 CBC W/O DIFF,HEMOGRAM [HEME] MOTH@00 02/03/17 07:00 CBC W/O DIFF,HEMOGRAM [HEME] MOTH@69902/06/17 07:00 CBC W/O DIFF,HEMOGRAM [HEME] MOTH@07 - Plan Plan:: Assessment/Plan: Acute: Clostridium Difficile Infection - Continues to improve - Risk factor: Recent Abx Use - Has had previous hx/o it in the past (a year ago) - Continue oral flagyl 500 mg Q8 for 10-14 days C. Difficile Associated Diarrhea - He continues to improve - Continue supportive care - OP pending - Fecal WBC: negative - He is not a local here Abdominal Pain and Cramps - 2/2 Above - Pain is now controlled - Continue current pain regimen - KUB: no acute abnormal findings Nicotine Dependence - Smoke 1ppd - Nicotine patch daily Hypokalemia - K 3.2 - Pharmacy to replete and monitor Resolved: S/p Coffee Ground Emesis - Gastro-occult pos S/p Intractable Nausea and Vomiting - Still symptomatic but better - Continue PRN Anti-emesis and Supportive Care - NPO except meds, ice chips and sips of water S/p Leukocytosis - Improving: WBC 16--> 10 - Likely 2/2 Steroid Use - Hold oral steroids S/p Electrolytes Abnormality - Hypokalemia (K 3.3) and Hypomagnesemia (Mg 1.7) - 2/2 GI Loss - Pharmacy to monitor and replete Chronic: Hx/o Heroin Abuse Plan: He remains clinically stable Continue current treatment Advanced diet as tolerated Routine AM Labs SW/CM for d/c planning Additional orders as above Possible d/c in 1-2 days if he continues to get better LOS > 96hr due to slow response to treatment
[2017-01-19] MEDS: Enoxaparin 40 MG/0.4 ML Syringe SUBCUT SCH (08:32)
[2017-01-19] MEDS: oxyCODONE ER 20 MG TAB.ER PO SCH ×2 (08:32→20:36)
[2017-01-19] MEDS: Famotidine 20 MG Tab PO SCH ×2 (08:32→20:36)
[2017-01-19] MEDS: Saccharomyces Boulardii (Probiotic) 250 MG Cap PO SCH ×2 (08:32→20:36)
[2017-01-19] MEDS: Nicotine 21 MG/24 Hr Patch TRDERM SCH (09:27)
[2017-01-19] MEDS: Potassium Chloride 20 MEQ Tab.ER PO SCH ×2 (12:13→15:25)
[2017-01-19] MEDS: Magnesium Oxide 400 MG Tab PO SCH (20:36)
[2017-01-19] MEDS ORDERED: traZODone 50 MG Tab PO PRN ×2 (21:00)
[2017-01-19] MEDS ORDERED: Potassium Chloride 20 MEQ Tab.ER PO ONE (21:00)
[2017-01-20] MEDS: HYDROmorphone 1 MG/ML Syringe IVPUSH PRN ×2 (00:36→06:46)
[2017-01-20] MEDS: Ondansetron 4 MG/2 ML SDV IV PRN ×3 (00:36→12:59)
[2017-01-20] MEDS: metroNIDAZOLE 500 MG Tab PO SCH ×3 (00:36→16:49)
[2017-01-20] MEDS: Dextrose 5%-0.45% NaCl 1,000 ML IV SCH ×2 (03:43→11:23)
[2017-01-20] MEDS: Famotidine 20 MG Tab PO SCH ×2 (08:29→20:54)
[2017-01-20] MEDS: Saccharomyces Boulardii (Probiotic) 250 MG Cap PO SCH ×2 (08:29→20:54)
[2017-01-20] MEDS: Nicotine 21 MG/24 Hr Patch TRDERM SCH (08:30)
[2017-01-20] MEDS: oxyCODONE ER 20 MG TAB.ER PO SCH ×2 (08:30→20:54)
[2017-01-20] MEDS: Enoxaparin 40 MG/0.4 ML Syringe SUBCUT SCH (08:30)
[2017-01-20] MEDS: Magnesium Oxide 400 MG Tab PO SCH ×2 (08:30→20:54)
--- NOTE | 2017-01-20 11:09 | PCM.PN ---
- General Info Date of Service: 01/20/17 Admission Dx/Problem (Free Text): Admission Diagnosis/Problem Admission Diagnosis/Problem Vomiting Subjective Update: Follow Up Functional Status: Reports: pain controlled, tolerating diet, ambulating, urinating, new symptoms - Review of Systems General: Denies: Fever, Weakness, Chills HEENT: Reports: no symptoms Pulmonary: Denies: shortness of breath Cardiovascular: Denies: Chest Pain, Palpitations, Dyspnea on Exertion Gastrointestinal: Reports: Abdominal pain, Diarrhea. Denies: Nausea, Vomiting Genitourinary: Reports: no symptoms Musculoskeletal: Reports: no symptoms Skin: Denies: cyanosis, bruising, pruritis, rash Neurological: Denies: Confusion, Difficulty Walking, Weakness Psychiatric: Denies: depression, anxiety, hallucinations Systems Review Comment:: No overnight or acute issues. His stools are now soft in consistency. He only had 2 episode of diarrhea yesterday. He is tolerating clear liquid diet. He has no new complaints. - Patient Data Vitals - most recent: Last Vital Signs Temp 36.8 C 01/20/17 08:17 Pulse 43 L 01/20/17 08:17 Resp 16 01/20/17 08:17 BP 115/70 01/20/17 08:17 Pulse Ox 93 L 01/20/17 08:17 Weight - most recent: 64.818 kg I&O - last 24 hours: Intake & Output 01/19/17 01/20/17 01/20/17 22:59 06:59 14:59 Intake Total 3738 1495 Output Total 400 Balance 3338 1495 Lab Results last 24 hrs: Laboratory Results - last 24 hr 01/20/17 01/20/17 Range/Units 05:54 05:54 WBC 6.51 (4.23-9.07) K/mm3 RBC 4.75 (4.63-6.08) M/mm3 Hgb 14.2 (13.7-17.5) gm/L Hct 42.6 (40.1-51.0) % MCV 89.7 (79.0-92.2) fl MCH 29.9 (25.7-32.2) pg MCHC 33.3 (32.2-35.5) g/dl RDW Std Deviation 43.9 (35.1-43.9) fL Plt Count 213 (163-337) K/mm3 MPV 11.1 (9.4-12.3) fl Neut % (Auto) 38.2 (34.0-67.9) % Lymph % (Auto) 48.1 (21.8-53.1) % [place] % (Auto) 8.6 (5.3-12.2) % Eos % (Auto) 4.1 (0.8-7.0) Baso % (Auto) 0.5 (0.1-1.2) % Neut # (Auto) 2.49 (1.78-5.38) K/mm3 Lymph # (Auto) 3.13 (1.32-3.57) K/mm3 [place] # (Auto) 0.56 (0.30-0.82) K/mm3 Eos # (Auto) 0.27 (0.04-0.54) K/mm3 Baso # (Auto) 0.03 (0.01-0.08) K/mm3 Sodium 141 (136-145) mEq/L Potassium 4.6 (3.5-5.1) mEq/L Chloride 105 (98-107) mEq/L Carbon Dioxide 29 (21-32) mEq/L Anion Gap 11.6 (5-15) BUN 5 L (7-18) mg/dL Creatinine 1.0 (0.7-1.3) mg/dL Est Cr Clr Drug Dosing 94.53 mL/min Estimated GFR (MDRD) > 60 (>60) mL/min BUN/Creatinine Ratio 5.0 L (14-18) Glucose 90 (74-106) mg/dL Calcium 8.6 (8.5-10.1) mg/dL Magnesium 2.0 (1.8-2.4) mg/dl C-Reactive Protein < 0.2 (<1.0) mg/dL Diaz Results last 24 hrs: Microbiology 01/16/17 19:38 Urine Culture - Final Urine, Clean Catch NO GROWTH AFTER 2 DAYS Med Orders - Current: Current Medications Acetaminophen (Tylenol) 650 mg PO Q4H PRN PRN Reason: Pain (Mild 1-3)/fever Hydrocodone Bitart/Acetaminophen ([place] 325-5 Mg) 1 tab PO Q4H PRN PRN Reason: Pain (moderate 4-6) Last Admin: 01/19/17 16:07 Dose: 1 tab Al Hydroxide/Mg Hydroxide (Mag-Al Plus) 30 ml PO Q4H PRN PRN Reason: Heartburn Last Admin: 01/17/17 01:40 Dose: 30 ml Albuterol/Ipratropium (Duoneb 3.0-0.5 Mg/3 Ml) 3 ml NEB Q4H PRN PRN Reason: Shortness Of Breath/wheezing Last Admin: 01/18/17 22:22 Dose: 3 ml Enoxaparin Sodium (Lovenox) 40 mg SUBCUT DAILY [facility] [place] Last Admin: 01/20/17 08:30 Dose: 40 mg Famotidine (Pepcid) 20 mg PO BID [facility] [place] Last Admin: 01/20/17 08:29 Dose: 20 mg Hydromorphone HCl (Dilaudid) 1 mg IVPUSH Q6H PRN PRN Reason: Pain (severe 7-10) Last Admin: 01/20/17 06:46 Dose: 1 mg Dextrose/Sodium Chloride (Dextrose 5%-1/2 Ns) 1,000 mls @ 125 mls/hr IV ASDIRECTED [facility] [place] Last Admin: 01/20/17 03:43 Dose: 125 mls/hr Magnesium Oxide (Magnesium Oxide) 400 mg PO BID [facility] [place] Last Admin: 01/20/17 08:30 Dose: 400 mg Magnesium Sulfate (Pharmacy To Dose - Magnesium Replacement) 1 dose .XX ASDIRECTED [facility] [place] Metoclopramide HCl (Reglan) 10 mg IVPUSH Q6H PRN PRN Reason: Nausea/Cramping Last Admin: 01/19/17 09:27 Dose: 10 mg Metronidazole (Flagyl) 500 mg PO Q8H [facility] [place] Last Admin: 01/20/17 08:29 Dose: 500 mg Miscellaneous Information (Remove Patch) 1 ea TRDERM DAILY [facility] [place] Last Admin: 01/20/17 08:31 Dose: Not Given Nicotine (Habitrol) 21 mg TRDERM DAILY [facility] [place] Last Admin: 01/20/17 08:30 Dose: 21 mg Ondansetron HCl (Zofran) 4 mg IV Q6H PRN PRN Reason: Nausea/Vomiting Last Admin: 01/20/17 06:46 Dose: 4 mg Oxycodone HCl (Oxycontin) 20 mg PO Q12HR [facility] [place] Last Admin: 01/20/17 08:30 Dose: 20 mg Potassium Chloride (Pharmacy To Dose - Potassium Replacement) 1 dose .XX ASDIRECTED [facility] Saccharomyces Boulardii (Florastor) 250 mg PO BID [facility] Last Admin: 01/20/17 08:29 Dose: 250 mg Trazodone HCl (Trazodone) 50 mg PO BEDTIME PRN PRN Reason: Insomnia Discontinued Medications Al Hydroxide/Mg Hydroxide 30 (ml/ Lidocaine HCl 15 ml) 0 ml PO ONETIME ONE Stop: 01/16/17 14:13 Last Admin: 01/16/17 15:46 Dose: 45 ml Hydromorphone HCl (Dilaudid) 0.5 mg IVPUSH ONETIME ONE Stop: 01/16/17 16:29 Last Admin: 01/16/17 16:35 Dose: 0.5 mg Hydromorphone HCl (Dilaudid) 0.25 mg IVPUSH Q2H PRN PRN Reason: Pain (severe 7-10) Last Admin: 01/17/17 12:05 Dose: 0.25 mg Lactated Ringer's (Ringers, Lactated) 1,000 mls @ 999 mls/hr IV .BOLUS ONE Stop: 01/16/17 15:14 Last Admin: 01/16/17 14:55 Dose: 999 mls/hr Promethazine HCl 12.5 mg/ (Sodium Chloride) 50.5 mls @ 100 mls/hr IV Q6H PRN PRN Reason: Nausea/Vomiting Last Admin: 01/17/17 05:31 Dose: 100 mls/hr Magnesium Sulfate 2 gm/ Premix 50 mls @ 25 mls/hr IV ONETIME ONE Stop: 01/17/17 10:44 Last Admin: 01/17/17 09:30 Dose: 25 mls/hr Influenza Virus Vaccine (Fluzone/Fluarix Vaccine) 60 mcg IM .ONCE ONE Stop: 01/16/17 17:51 Metoclopramide HCl (Reglan) 5 mg IVPUSH ONETIME ONE Stop: 01/16/17 14:55 Last Admin: 01/16/17 14:57 Dose: 5 mg Metoclopramide HCl (Reglan) 5 mg IVPUSH ONETIME ONE Stop: 01/16/17 15:15 Last Admin: 01/16/17 15:23 Dose: 5 mg Metoclopramide HCl (Reglan) 5 mg IVPUSH TID PRN PRN Reason: Nausea/Cramping Last Admin: 01/17/17 09:33 Dose: 5 mg Pantoprazole Sodium (Protonix Iv) 40 mg IVPUSH ONETIME ONE Stop: 01/17/17 06:31 Last Admin: 01/17/17 06:40 Dose: 40 mg Pneumococcal Polyvalent Vaccine (Pneumovax 23) 0.5 ml IM .ONCE ONE Stop: 01/16/17 17:51 Potassium Chloride (Klor-Con M20) 20 meq PO Q3H [facility] Stop: 01/17/17 11:46 Last Admin: 01/17/17 12:06 Dose: 20 meq Potassium Chloride (Klor-Con M20) 20 meq PO Q3H [facility] Stop: 01/19/17 15:01 Last Admin: 01/19/17 15:25 Dose: 20 meq Potassium Chloride (Klor-Con M20) 60 meq PO ONETIME ONE Stop: 01/19/17 21:01 Last Admin: 01/19/17 20:37 Dose: 60 meq Scopolamine (Transderm-Scop) 1.5 mg TOP ONETIME ONE Stop: 01/16/17 17:00 Last Admin: 01/16/17 18:17 Dose: 1.5 mg Sucralfate (Carafate) 1 gm PO ONETIME ONE Stop: 01/16/17 16:36 Last Admin: 01/16/17 18:18 Dose: 1 gm Temazepam (Restoril) 30 mg PO BEDTIME PRN PRN Reason: Sleep Last Admin: 01/18/17 22:20 Dose: 30 mg Trazodone HCl (Trazodone) 100 mg PO BEDTIME PRN PRN Reason: Insomnia - Exam General: alert, oriented, cooperative, no acute distress HEENT: Pupils equal, Pupils reactive, EOMI, Mucous membr. moist/pink Neck: supple, trachea midline, no JVD, no thyromegaly Lungs: Clear to auscultation, Normal respiratory effort Cardiovascular: Regular Rate, Regular Rhythm Abdomen: bowel sounds present, soft, no distension, tenderness, abnormal bowel sounds. No: rigidity, rebound, guarding (Male) Exam: Deferred Back Exam: normal inspection, decreased range of motion Extremities: no edema, normal pulses, no tenderness/swelling, no clubbing, no cyanosis, no calf tenderness Peripheral Pulses: 3+: posterior tibial (L), posterior tibial (R), dorsalis pedis (L), dorsalis pedis (R) Skin: warm, dry, intact Neurological: no new focal deficit Psy/Mental Status: alert, normal affect, normal mood - Problem List Review Problem List Initiated/Reviewed/Updated: Yes - My Orders Last 24 Hours: My Active Orders 01/19/17 21:00 Magnesium Oxide 400 mg PO BID traZODone 50 mg PO BEDTIME PRN 01/21/17 05:11 BASIC METABOLIC PANEL,BMP [CHEM] AM C-REACTIVE PROTEIN [CHEM] AM CBC WITH AUTO DIFF [HEME] AM MAGNESIUM [CHEM] AM 01/23/17 07:00 CBC W/O DIFF,HEMOGRAM [HEME] MOTH@0700 01/27/17 07:00 CBC W/O DIFF,HEMOGRAM [HEME] MOTH@0700 01/30/17 07:00 CBC W/O DIFF,HEMOGRAM [HEME] MOTH@0700 02/03/17 07:00 CBC W/O DIFF,HEMOGRAM [HEME] MOTH@0700 02/06/17 07:00 CBC W/O DIFF,HEMOGRAM [HEME] MOTH@0700 - Plan Plan:: Assessment/Plan: Acute: Clostridium Difficile Infection - Continues to improve - Risk factor: Recent Abx Use - Has had previous hx/o it in the past (a year ago) - Continue oral flagyl 500 mg Q8 for 10-14 days C. Difficile Associated Diarrhea - He continues to improve - Continue supportive care - OP pending - Fecal WBC: negative - He is not a local here Abdominal Pain and Cramps - 2/2 Above - Pain is now controlled - Continue current pain regimen - KUB: no acute abnormal findings Nicotine Dependence - Smoke 1ppd - Nicotine patch daily Resolved: S/p Coffee Ground Emesis - Gastro-occult pos S/p Intractable Nausea and Vomiting - Still symptomatic but better - Continue PRN Anti-emesis and Supportive Care - NPO except meds, ice chips and sips of water S/p Leukocytosis - Improving: WBC 16--> 10 - Likely 2/2 Steroid Use - Hold oral steroids S/p Electrolytes Abnormality - Hypokalemia (K 3.3) and Hypomagnesemia (Mg 1.7) - 2/2 GI Loss - Pharmacy to monitor and replete Chronic: Hx/o Heroin Abuse Plan: He remains clinically stable Continue current treatment Advanced diet as tolerated D/c [place], cut current Dialudid to 1/2 Q6 PRN for pain Routine AM Labs SW/CM for d/c planning Additional orders as above Possible d/c in AM LOS > 96hr due to slow response to treatment
[2017-01-20] MEDS: HYDROmorphone 0.5 MG/0.5 ML Syringe IVPUSH PRN ×2 (12:59→19:06)
[2017-01-20] MEDS: Metoclopramide 10 MG/2 ML SDV IVPUSH PRN (19:05)
[2017-01-21] MEDS ORDERED: diphenhydrAMINE 50 MG/ML SDV IVPUSH ONE ×2 (00:47→07:01)
[2017-01-21] MEDS: metroNIDAZOLE 500 MG Tab PO SCH ×2 (00:58→08:24)
[2017-01-21] MEDS: Ondansetron 4 MG/2 ML SDV IV PRN (06:57)
[2017-01-21] MEDS: Nicotine 21 MG/24 Hr Patch TRDERM SCH (08:20)
[2017-01-21] MEDS: Enoxaparin 40 MG/0.4 ML Syringe SUBCUT SCH (08:24)
[2017-01-21] MEDS: Saccharomyces Boulardii (Probiotic) 250 MG Cap PO SCH (08:24)
[2017-01-21] MEDS: oxyCODONE ER 20 MG TAB.ER PO SCH (08:24)
[2017-01-21] MEDS: Magnesium Oxide 400 MG Tab PO SCH (08:25)
[2017-01-21] MEDS: Famotidine 20 MG Tab PO SCH (09:27)
--- NOTE | 2017-01-21 09:28 | PCM.DCSUM1 ---
Discharge Summary - Hospital Course Free Text/Narrative:: This is a 36 yo white male with medical hx/o heroin abuse who comes in with c/o diffuse abdominal pain associated with watery diarrhea and coffee ground emesis. His symptoms started over 1 week ago. He denies any recent travel, no unusual diet or drinks. He carries a hx/o C. difficile infection in the past. Patient was seen in ED twice now with similar presentation. His most recent visit was yesterday. He was given Cipro along with steroids for presumptive colitis. However he came back today for worsening symptoms. In ED he was found weakly pos for gastro-occult but negative for hemoccult test. His initial labs show a CBC remarkable for WBC of 16.33 and Neutrophils of 87. His chemistry is significant for Cl of 108 and BS of 119. His lipase, AST and ALT were all normal. However he is pos for C. difficile test. Hospitalist service is asked to admit for abdominal pain and acute c.diff infection. He is admitted, hydrated with IVF, started on metronidazole and florastor. Multiple antiemetics IV ordered with some relief. He reports abdominal pain and cramping, treated with IV dilaudid and PO narcotic pain medications, minimal improvement. Diarrhea and loose stools improved. Labs with improvements and VSS. He will be discharged today on oral flagyl TID x 10 more days, probiotic, pepcid and zofran. He is to establish care with a PCP and follow up within 5-7 days of discharge. - Discharge Data Discharge Date: 01/21/17 (admit date 01/16/17) Discharge Disposition: Home, Self-Care 01 Condition: Good - Discharge Diagnosis/Problem(s) (1) Clostridium difficile diarrhea SNOMED Code(s): 451108974, 280088871 ICD Code: A04.7 - ENTEROCOLITIS DUE TO CLOSTRIDIUM DIFFICILE Status: Acute Priority: High Current Visit: Yes (2) Nausea & vomiting SNOMED Code(s): 35936137 ICD Code: R11.2 - NAUSEA WITH VOMITING, UNSPECIFIED Status: Resolved Current Visit: Yes Qualifiers: Vomiting Intractability: non-intractable (3) Abdominal pain SNOMED Code(s): 90326295 ICD Code: R10.9 - UNSPECIFIED ABDOMINAL PAIN Status: Resolved Priority: Medium Current Visit: Yes Qualifiers: Abdominal location: generalized Qualified Code(s): R10.84 - Generalized abdominal pain (4) Diarrhea SNOMED Code(s): 38219117 ICD Code: R19.7 - DIARRHEA, UNSPECIFIED Status: Resolved Priority: High Current Visit: Yes Qualifiers: Diarrhea type: unspecified type Qualified Code(s): R19.7 - Diarrhea, unspecified (5) History of narcotic addiction SNOMED Code(s): 430233247 ICD Code: F11.21 - OPIOID DEPENDENCE, IN REMISSION Status: Chronic Priority: High Current Visit: Yes - Patient Summary/Data Operative Procedure(s) Performed: None Complications: None Consults: Consultations 01/16/17 16:57 Consult to Case Management [CONS] Routine Consult to Supervisor Farm Equipment Maintenance [CONS] Routine 01/17/17 12:57 Consult to Dietary [Consult to Registration Officer] [CONS] Routine Labs Pending at D/C: None Recommended Follow-up Testing/Procedures: Nursing: please give Flu and PPSV23 vaccine prior to d/c. Thank you. You must wash with soap and water, not use hand system support analyst, to remove C.Diff. from your hands. Wash your hands every time you use the bathroom. Cleaning must be done with a 1:10 bleach solution to eliminate C.Diff. on surfaces. This is a highly contagious bacteria. Follow up with Primary Care within 5-7 days of discharge for recheck [place] diet for the next 1-2 weeks; avoid caffeine, alcohol, citrus, tomato based foods, these can worsen stomach pain/nausea/diarrhea until infection is cleared. Planned Operative Procedure(s) after DC: None Hospital Course: As above - Patient Instructions Diet: No Alcoholic Beverages, GI Soft/Low Residue/Low Fiber ([place] diet) Activity: As Tolerated Driving: Do Not Drive (today as you have had narcotic pain medications in the last 24 hours. ) Showering/Bathing: May Shower Notify Provider of: Fever, Increased Pain, Nausea and/or Vomiting - Discharge Plan Prescriptions/Med Rec: Bifidobacter. Bifidum/B.Longum [Florajen Bifidoblend] 460 mg PO DAILY #30 capsule Famotidine [Pepcid] 20 mg PO BID #30 tablet Magnesium Oxide 400 mg PO BID #60 tablet Nicotine [Habitrol] 21 mg TRDERM DAILY #30 patch Ondansetron [Zofran ODT] 4 mg PO Q6H #40 tab.dis metroNIDAZOLE [Flagyl] 500 mg PO Q8H #30 tablet Home Medications: Home Meds Bifidobacter. Bifidum/B.Longum [Florajen Bifidoblend] 460 mg PO DAILY #30 capsule 01/21/17 [Rx] Famotidine [Pepcid] 20 mg PO BID #30 tablet 01/21/17 [Rx] Magnesium Oxide 400 mg PO BID #60 tablet 01/21/17 [Rx] Nicotine [Habitrol] 21 mg TRDERM DAILY #30 patch 01/21/17 [Rx] Ondansetron [Zofran ODT] 4 mg PO Q6H #40 tab.dis 01/21/17 [Rx] metroNIDAZOLE [Flagyl] 500 mg PO Q8H #30 tablet 01/21/17 [Rx] Patient Handouts: Smoking Cessation, Tips for Success, [id number], Clostridium Difficile FAQs - BOBBY, Clostridium Difficile Infection, [id number] Referrals: PCP,None [Primary Care Provider] - - Discharge Summary/Plan Comment DC Time >30 min.: Yes (40 min) - General Info Date of Service: 01/21/17 Admission Dx/Problem (Free Text: Admission Diagnosis/Problem Admission Diagnosis/Problem Vomiting States nausea improved, no further vomiting. Continues with intermittent abdominal cramping pains. VSS, afebrile and labs with significant improvement. He continues to seek narcotic pain medications. He is stable for discharge today. Functional Status: Reports: tolerating diet, ambulating, urinating - Review of Systems General: Reports: No Symptoms HEENT: Reports: no symptoms Pulmonary: Reports: no symptoms Cardiovascular: Reports: No Symptoms Gastrointestinal: Reports: Abdominal pain (cramping intermittent), Diarrhea ( improved to resolved), Nausea (improved). Denies: Vomiting Genitourinary: Reports: no symptoms - Patient Data Vitals - Most Recent: Last Vital Signs Temp 98.4 F 01/21/17 08:01 Pulse 74 01/21/17 08:01 Resp 16 01/21/17 08:01 BP 101/70 01/21/17 08:01 Pulse Ox 92 L 01/21/17 08:01 Weight - Most Recent: 136 lb 1.6 oz I&O - Last 24 hours: Intake & Output 01/20/17 01/21/1717 22:59 06:59 14:59 Intake Total 2735 400 Output Total 2800 Balance -65 400 Lab Results - Last 24 hrs: Laboratory Results - last 24 hr 01/21/17 01/21/17 Range/Units 07:06 07:06 WBC 7.52 (4.23-9.07) K/mm3 RBC 5.36 (4.63-6.08) M/mm3 Hgb 16.3 (13.7-17.5) gm/L Hct 46.1 (40.1-51.0) % MCV 86.0 (79.0-92.2) fl MCH 30.4 (25.7-32.2) pg MCHC 35.4 (32.2-35.5) g/dl RDW Std Deviation 40.9 (35.1-43.9) fL Plt Count 227 (163-337) K/mm3 MPV 10.4 (9.4-12.3) fl Neut % (Auto) 48.9 (34.0-67.9) % Lymph % (Auto) 34.2 (21.8-53.1) % [place] % (Auto) 12.4 H (5.3-12.2) % Eos % (Auto) 3.6 (0.8-7.0) Baso % (Auto) 0.5 (0.1-1.2) % Neut # (Auto) 3.68 (1.78-5.38) K/mm3 Lymph # (Auto) 2.57 (1.32-3.57) K/mm3 [place] # (Auto) 0.93 H (0.30-0.82) K/mm3 Eos # (Auto) 0.27 (0.04-0.54) K/mm3 Baso # (Auto) 0.04 (0.01-0.08) K/mm3 Sodium 139 (136-145) mEq/L Potassium 4.2 (3.5-5.1) mEq/L Chloride 103 (98-107) mEq/L Carbon Dioxide 27 (21-32) mEq/L Anion Gap 13.2 (5-15) BUN 12 (7-18) mg/dL Creatinine 1.0 (0.7-1.3) mg/dL Est Cr Clr Drug Dosing 90.03 mL/min Estimated GFR (MDRD) > 60 (>60) mL/min BUN/Creatinine Ratio 12.0 L (14-18) Glucose 90 (74-106) mg/dL Calcium 8.9 (8.5-10.1) mg/dL Magnesium 2.0 (1.8-2.4) mg/dl C-Reactive Protein < 0.0 (<1.0) mg/dL JOHANNA Results - Last 24 hrs: Microbiology 01/16/17 19:38 Cryptosporidium/Giardia - Final Stool / Feces Med Orders - Current: Current Medications Hydrocodone Bitart/Acetaminophen ([place] 325-5 Mg) 1 tab PO Q4H PRN PRN Reason: Pain (moderate 4-6) Last Admin: 01/19/17 16:07 Dose: 1 tab Al Hydroxide/Mg Hydroxide (Mag-Al Plus) 30 ml PO Q4H PRN PRN Reason: Heartburn Last Admin: 01/17/17 01:40 Dose: 30 ml Albuterol/Ipratropium (Duoneb 3.0-0.5 Mg/3 Ml) 3 ml NEB Q4H PRN PRN Reason: Shortness Of Breath/wheezing Last Admin: 01/18/17 22:22 Dose: 3 ml Enoxaparin Sodium (Lovenox) 40 mg SUBCUT DAILY [facility] Last Admin: 01/21/17 08:24 Dose: 40 mg Famotidine (Pepcid) 20 mg PO BID [facility] Last Admin: 01/20/17 20:54 Dose: 20 mg Hydromorphone HCl (Dilaudid) 0.5 mg IVPUSH Q6H PRN PRN Reason: Pain (severe 7-10) Last Admin: 01/20/17 19:06 Dose: 0.5 mg Magnesium Oxide (Magnesium Oxide) 400 mg PO BID [facility] Last Admin: 01/21/17 08:25 Dose: 400 mg Magnesium Sulfate (Pharmacy To Dose - Magnesium Replacement) 1 dose .XX ASDIRECTED [facility] Metoclopramide HCl (Reglan) 10 mg IVPUSH Q6H PRN PRN Reason: Nausea/Cramping Last Admin: 01/20/17 19:05 Dose: 10 mg Metronidazole (Flagyl) 500 mg PO Q8H [facility] Last Admin: 01/21/17 08:24 Dose: 500 mg Miscellaneous Information (Remove Patch) 1 ea TRDERM DAILY [facility] Last Admin: 01/21/17 08:29 Dose: Not Given Nicotine (Habitrol) 21 mg TRDERM DAILY [facility] Last Admin: 01/21/17 08:20 Dose: 21 mg Ondansetron HCl (Zofran) 4 mg IV Q6H PRN PRN Reason: Nausea/Vomiting Last Admin: 01/21/17 06:57 Dose: 4 mg Oxycodone HCl (Oxycontin) 20 mg PO Q12HR [facility] Last Admin: 01/21/17 08:24 Dose: 20 mg Potassium Chloride (Pharmacy To Dose - Potassium Replacement) 1 dose .XX ASDIRECTED [facility] Saccharomyces Boulardii (Florastor) 250 mg PO BID [facility] Last Admin: 01/21/17 08:24 Dose: 250 mg Trazodone HCl (Trazodone) 50 mg PO BEDTIME PRN PRN Reason: Insomnia Discontinued Medications Acetaminophen (Tylenol) 650 mg PO Q4H PRN PRN Reason: Pain (Mild 1-3)/fever Al Hydroxide/Mg Hydroxide 30 (ml/ Lidocaine HCl 15 ml) 0 ml PO ONETIME ONE Stop: 01/16/17 14:13 Last Admin: 01/16/17 15:46 Dose: 45 ml Diphenhydramine HCl (Benadryl) 50 mg IVPUSH ONETIME ONE Stop: 01/21/17 00:48 Last Admin: 01/21/17 00:58 Dose: 50 mg Diphenhydramine HCl (Benadryl) 25 mg IVPUSH ONETIME ONE Stop: 01/21/17 07:02 Last Admin: 01/21/17 07:55 Dose: Not Given Hydromorphone HCl (Dilaudid) 0.5 mg IVPUSH ONETIME ONE Stop: 01/16/17 16:29 Last Admin: 01/16/17 16:35 Dose: 0.5 mg Hydromorphone HCl (Dilaudid) 0.25 mg IVPUSH Q2H PRN PRN Reason: Pain (severe 7-10) Last Admin: 01/17/17 12:05 Dose: 0.25 mg Hydromorphone HCl (Dilaudid) 1 mg IVPUSH Q6H PRN PRN Reason: Pain (severe 7-10) Last Admin: 01/20/17 06:46 Dose: 1 mg Lactated Ringer's (Ringers, Lactated) 1,000 mls @ 999 mls/hr IV .BOLUS ONE Stop: 01/16/17 15:14 Last Admin: 01/16/17 14:55 Dose: 999 mls/hr Dextrose/Sodium Chloride (Dextrose 5%-1/2 Ns) 1,000 mls @ 125 mls/hr IV ASDIRECTED [facility] Last Admin: 01/20/17 11:23 Dose: 125 mls/hr Promethazine HCl 12.5 mg/ (Sodium Chloride) 50.5 mls @ 100 mls/hr IV Q6H PRN PRN Reason: Nausea/Vomiting Last Admin: 01/17/17 05:31 Dose: 100 mls/hr Magnesium Sulfate 2 gm/ Premix 50 mls @ 25 mls/hr IV ONETIME ONE Stop: 01/17/17 10:44 Last Admin: 01/17/17 09:30 Dose: 25 mls/hr Influenza Virus Vaccine (Fluzone/Fluarix Vaccine) 60 mcg IM .ONCE ONE Stop: 01/16/17 17:51 Metoclopramide HCl (Reglan) 5 mg IVPUSH ONETIME ONE Stop: 01/16/17 14:55 Last Admin: 01/16/17 14:57 Dose: 5 mg Metoclopramide HCl (Reglan) 5 mg IVPUSH ONETIME ONE Stop: 01/16/17 15:15 Last Admin: 01/16/17 15:23 Dose: 5 mg Metoclopramide HCl (Reglan) 5 mg IVPUSH TID PRN PRN Reason: Nausea/Cramping Last Admin: 01/17/17 09:33 Dose: 5 mg Pantoprazole Sodium (Protonix Iv) 40 mg IVPUSH ONETIME ONE Stop: 01/17/17 06:31 Last Admin: 01/17/17 06:40 Dose: 40 mg Pneumococcal Polyvalent Vaccine (Pneumovax 23) 0.5 ml IM .ONCE ONE Stop: 01/16/17 17:51 Potassium Chloride (Klor-Con M20) 20 meq PO Q3H [facility] Stop: 01/17/17 11:46 Last Admin: 01/17/17 12:06 Dose: 20 meq Potassium Chloride (Klor-Con M20) 20 meq PO Q3H [facility] Stop: 01/19/17 15:01 Last Admin: 01/19/17 15:25 Dose: 20 meq Potassium Chloride (Klor-Con M20) 60 meq PO ONETIME ONE Stop: 01/19/17 21:01 Last Admin: 01/19/17 20:37 Dose: 60 meq Scopolamine (Transderm-Scop) 1.5 mg TOP ONETIME ONE Stop: 01/16/17 17:00 Last Admin: 01/16/17 18:17 Dose: 1.5 mg Sucralfate (Carafate) 1 gm PO ONETIME ONE Stop: 01/16/17 16:36 Last Admin: 01/16/17 18:18 Dose: 1 gm Temazepam (Restoril) 30 mg PO BEDTIME PRN PRN Reason: Sleep Last Admin: 01/18/17 22:20 Dose: 30 mg Trazodone HCl (Trazodone) 100 mg PO BEDTIME PRN PRN Reason: Insomnia - Exam Quality Assessment: Reports: DVT prophylaxis General: Reports: alert, oriented, cooperative HEENT: Reports: Pupils equal, Pupils reactive, EOMI Neck: Reports: supple Lungs: Reports: Clear to auscultation, Normal respiratory effort Cardiovascular: Reports: Regular Rate, Regular Rhythm Abdomen: Reports: bowel sounds present, soft, no distension, tenderness (no tenderness to abdomen when pressing wtih my stethoscope into his abdomen, any amt of touch with my hand/fingers on his abdomen he appears to wince in pain- response appears more than expected. ). Denies: rebound, guarding, organomegaly (Male) Exam: Deferred Rectal (Males) Exam: Deferred Back Exam: Reports: normal inspection Extremities: Reports: no edema Skin: Reports: warm, dry, other (tattoos over arms, chest, abdomen) Neurological: Reports: no new focal deficit Psy/Mental Status: Reports: alert *Q Meaningful Use (DIS) - VTE *Q VTE Criteria *Q: - Stroke *Q Stroke Criteria *Q: - AMI *Q AMI Criteria *Q:
[2017-01-21 11:44] VITALS: BP 106/68
[2017-01-21] MEDS: Metoclopramide 10 MG/2 ML SDV IVPUSH PRN (12:11)
== END 2017-01-21 13:08 | disposition home or self-care (01) | DRG 373 ==
LOC: JD.ED 13:20 → JD.MS 16:28
PROVIDERS: ADMIT Internal Medicine; ATTEND Internal Medicine
DX: A04.7 Enterocolitis due to Clostridium difficile (principal); Z23 Encounter for immunization; R12 Heartburn; F17.210 Nicotine dependence, cigarettes, uncomplicated; F11.21 Opioid dependence, in remission; E87.6 Hypokalemia; E83.42 Hypomagnesemia; Z79.52 Long term (current) use of systemic steroids; Z88.8 Allergy status to other drugs, medicaments and biological substances
CPT/HCPCS: 36415; 74000; 74000-26; 80048; 80053; 80306; 81001; 83690; 83735; 85025; 85610; 86140; 87086; 87328; 87329; 87493; 89055; 90686; 90732; 94640-76; 94664; 94761; 96361; 96374; 96375; 99222; 99232; 99284; 99285-25; A9270-GY; C9113; J1170; J1200; J1650; J2405; J2550; J2765; J3475; J7042; J7050; J7120

== ENCOUNTER 2017-01-23 01:30 | Emergency (ER) | payer OTHER ==
[2017-01-23 01:42] VITALS: BP 101/65
--- NOTE | 2017-01-23 02:05 | EDM.PDOC ---
ED HPI GI/ABDOMINAL - General Chief Complaint: Gastrointestinal Problem Stated Complaint: C-DIFF VOMITING OFF BALANCE Time Seen by Provider: 01/23/17 01:40 - History of Present Illness INITIAL COMMENTS - FREE TEXT/NARRATIVE: 36-year-old male presents to the emergency room with continued nausea vomiting diarrhea he is lightheaded. Patient was as discharged from the hospital yesterday he was seen in the clinic yesterday as well started on medications to help with his abdominal cramping. Patient was treated in the hospital for primary C. difficile infection nausea vomiting abdominal discomfort. He was getting better. Patient denies any fevers or chills. He is getting very frustrated and sick he feels he is letting his kids down. He denies being suicidal and adamantly admits he will not hurt himself however sometimes he confesses that he wishes it all would end. - Related Data Allergies/ADRs: Allergies Allergy/AdvReac Type Severity Reaction Status Date / Time haloperidol [From Haldol] Allergy Other Verified 01/15/17 09:32 Home Meds: Home Meds Bifidobacter. Bifidum/B.Longum [Florajen Bifidoblend] 460 mg PO DAILY #30 capsule 01/21/17 [Rx] Famotidine [Pepcid] 20 mg PO BID #30 tablet 01/21/17 [Rx] Magnesium Oxide 400 mg PO BID #60 tablet 01/21/17 [Rx] Ondansetron [Zofran ODT] 4 mg PO Q6H #40 tab.dis 01/21/17 [Rx] metroNIDAZOLE [Flagyl] 500 mg PO Q8H #30 tablet 01/21/17 [Rx] Acetaminophen/Butalbital/Caff [Fioricet 325-50-40 MG] 1 tab PO Q6H 01/23/17 [ History] Dicyclomine [Bentyl] 20 mg PO Q6HR PRN 01/23/17 [History] Metoclopramide [Reglan] 10 mg PO Q6H PRN #12 tablet 01/23/17 [Rx] Past Medical History HEENT History: Reports: Impaired vision Gastrointestinal History: Reports: Bowel obstruction, Other (see below) Other Gastrointestinal History: hernias; abdominal surgery, ulcers Musculoskeletal History: Reports: Back pain, chronic, Other (see below) Other Musculoskeletal History: disabled since 2007 Psychiatric History: Reports: Addiction, Anxiety, Other (see below) Other Psychiatric History: social anxiety, heroine use-clean for 6 years - Infectious Disease History Infectious Disease History: Reports: C-difficile - Past Surgical History HEENT Surgical History: Reports: Adenoidectomy, Eye surgery, Tonsillectomy GI Surgical History: Reports: Colonoscopy, Hernia, inguinal Musculoskeletal Surgical History: Reports: None Social & Family History - Family History Family Medical History: Noncontributory Immunologic: Reports: HIV Other Immunologic Family History: brother Oncologic: Reports: Leukemia Other Oncologic Family History: leukemia - Tobacco Use Smoking Status *Q: Current Every Day Smoker Years of Tobacco use: 20 Packs/Tins Daily: 1 Used Tobacco, but Quit: No Second Hand Smoke Exposure: Yes - Caffeine Use Caffeine Use: Reports: None - Recreational Drug Use Recreational Drug Use: Yes Drug Use in Last 12 Months: No Recreational Drug Type: Reports: Heroin, Marijuana/Hashish ED ROS GENERAL - Review of Systems Review Of Systems: See Below Constitutional: Reports: weakness, fatigue HEENT: Reports: No symptoms Respiratory: Reports: No Symptoms Cardiovascular: Reports: No symptoms Endocrine: Reports: fatigue GI/Abdominal: Reports: Abdominal pain, Diarrhea, Nausea, Vomiting : Reports: no symptoms Skin: Reports: no symptoms Neurological: Reports: No Symptoms Psychiatric: Reports: Anxiety, Depression. Denies: Hallucinations, Homicidal ideation, Mood lability, Suicidal ideation ED EXAM, GI/ABD - Physical Exam Exam: See Below Exam Limited By: No limitations General Appearance: alert, no apparent distress Eyes: bilateral: normal appearance Throat/Mouth: Normal inspection, Normal lips, Normal gums, Normal oropharynx, Normal voice, No airway compromise Head: atraumatic, normocephalic Neck: normal inspection, supple, non-tender, full range of motion. No: lymphadenopathy (L), lymphadenopathy (R) Respiratory/Chest: no respiratory distress, lungs clear, normal breath sounds Cardiovascular: regular rate, rhythm, no edema, no murmur GI/Abdominal: normal bowel sounds, soft, other (He has diffuse tenderness no rebound or guarding noted) Back Exam: normal inspection. No: CVA tenderness (L), CVA tenderness (R) Extremities: normal inspection, no pedal edema Neurological: alert, oriented Psychiatric: normal affect, normal mood, other (With repeated questioning the patient denies being suicidal) Skin Exam: Warm, Dry, Intact Course - Vital Signs Last Recorded V/S: Last Vital Signs Temp 36.4 C 01/23/17 01:38 Pulse 94 01/23/17 01:38 Resp 16 01/23/17 01:38 BP 101/65 01/23/17 01:38 Pulse Ox 99 01/23/17 01:38 Orthostatic Blood Pressure [ 95/79 Standing] Orthostatic Blood Pressure [ 114/86 Sitting] Orthostatic Blood Pressure [ 104/80 Supine] - Orders/Labs/Meds Orders: Active Orders 24 hr Category Date Time Status Orthostatic Vital Signs [RC] ASDIRECTED Care 01/23/17 02:33 Active Labs: Laboratory Tests 01/23/17 01/23/17 01/23/17 Range/Units 02:16 02:16 02:20 WBC 9.44 H (4.23-9.07) K/mm3 RBC 5.55 (4.63-6.08) M/mm3 Hgb 16.9 (13.7-17.5) gm/L Hct 47.8 (40.1-51.0) % MCV 86.1 (79.0-92.2) fl MCH 30.5 (25.7-32.2) pg MCHC 35.4 (32.2-35.5) g/dl RDW Std Deviation 42.0 (35.1-43.9) fL Plt Count 236 (163-337) K/mm3 MPV 10.7 (9.4-12.3) fl Neutrophils % (Manual) 59 (40-60) % Band Neutrophils % 0 (0-10) % Lymphocytes % (Manual) 34 (20-40) % Atypical Lymphs % 0 % Monocytes % (Manual) 6 (2-10) % Eosinophils % (Manual) 0 L (0.8-7.0) % Basophils % (Manual) 1 (0.2-1.2) Platelet Estimate Adequate RBC Morph Comment Normal Sodium (136-145) mEq/L Potassium (3.5-5.1) mEq/L Chloride (98-107) mEq/L Carbon Dioxide (21-32) mEq/L Anion Gap (5-15) BUN (7-18) mg/dL Creatinine (0.7-1.3) mg/dL Est Cr Clr Drug Dosing mL/min Estimated GFR (MDRD) (>60) mL/min BUN/Creatinine Ratio (14-18) Glucose (74-106) mg/dL Calcium (8.5-10.1) mg/dL Total Bilirubin (0.2-1.0) mg/dL AST (15-37) U/L ALT (16-63) U/L Alkaline Phosphatase (46-116) U/L Total Protein (6.4-8.2) g/dl Albumin (3.4-5.0) g/dl Globulin gm/dL Albumin/Globulin Ratio (1-2) Urine Color Yellow (Yellow) Urine Appearance Clear (Clear) Urine pH 7.0 (5.0-8.0) Ur Specific [place] 1.020 (1.005-1.030) Urine Protein Negative (Negative) Urine Glucose (UA) Negative (Negative) Urine Ketones Negative (Negative) Urine Occult Blood Negative (Negative) Urine Nitrite Negative (Negative) Urine Bilirubin Negative (Negative) Urine Urobilinogen 0.2 (0.2-1.0) Ur Leukocyte Esterase Negative (Negative) Urine RBC 0-5 (0-5) /hpf Urine WBC 0-5 (0-5) /hpf Ur Epithelial Cells 0-5 (0-5) /hpf Urine Bacteria Rare (FEW) /hpf Urine Mucus Few (FEW) /hpf Urine Opiates Screen Negative (NEGATIVE) Ur Buprenorphine Scrn Negative (NEGATIVE) Ur Oxycodone Screen Negative (NEGATIVE) Urine Methadone Screen Negative (NEGATIVE) Ur Propoxyphene Screen Negative (NEGATIVE) Ur Barbiturates Screen Presumptive positive H (NEGATIVE) Ur Tricyclics Screen Negative (NEGATIVE) Ur Phencyclidine Scrn Negative (NEGATIVE) Ur Amphetamine Screen Negative (NEGATIVE) U Methamphetamines Scrn Negative (NEGATIVE) U Benzodiazepines Scrn Presumptive positive H (NEGATIVE) U Cocaine Metab Screen Negative (NEGATIVE) U Marijuana (THC) Screen Negative (NEGATIVE) 01/23/17 Range/Units 02:20 WBC (4.23-9.07) K/mm3 RBC (4.63-6.08) M/mm3 Hgb (13.7-17.5) gm/L Hct (40.1-51.0) % MCV (79.0-92.2) fl MCH (25.7-32.2) pg MCHC (32.2-35.5) g/dl RDW Std Deviation (35.1-43.9) fL Plt Count (163-337) K/mm3 MPV (9.4-12.3) fl Neutrophils % (Manual) (40-60) % Band Neutrophils % (0-10) % Lymphocytes % (Manual) (20-40) % Atypical Lymphs % % Monocytes % (Manual) (2-10) % Eosinophils % (Manual) (0.8-7.0) % Basophils % (Manual) (0.2-1.2) Platelet Estimate RBC Morph Comment Sodium 143 (136-145) mEq/L Potassium 3.9 (3.5-5.1) mEq/L Chloride 107 (98-107) mEq/L Carbon Dioxide 28 (21-32) mEq/L Anion Gap 11.9 (5-15) BUN 11 (7-18) mg/dL Creatinine 1.1 (0.7-1.3) mg/dL Est Cr Clr Drug Dosing 82.99 mL/min Estimated GFR (MDRD) > 60 (>60) mL/min BUN/Creatinine Ratio 10.0 L (14-18) Glucose 104 (74-106) mg/dL Calcium 9.0 (8.5-10.1) mg/dL Total Bilirubin 0.4 (0.2-1.0) mg/dL AST 27 (15-37) U/L ALT 40 (16-63) U/L Alkaline Phosphatase 74 (46-116) U/L Total Protein 6.8 (6.4-8.2) g/dl Albumin 3.8 (3.4-5.0) g/dl Globulin 3.0 gm/dL Albumin/Globulin Ratio 1.3 (1-2) Urine Color (Yellow) Urine Appearance (Clear) Urine pH (5.0-8.0) Ur Specific [place] (1.005-1.030) Urine Protein (Negative) Urine Glucose (UA) (Negative) Urine Ketones (Negative) Urine Occult Blood (Negative) Urine Nitrite (Negative) Urine Bilirubin (Negative) Urine Urobilinogen (0.2-1.0) Ur Leukocyte Esterase (Negative) Urine RBC (0-5) /hpf Urine WBC (0-5) /hpf Ur Epithelial Cells (0-5) /hpf Urine Bacteria (FEW) /hpf Urine Mucus (FEW) /hpf Urine Opiates Screen (NEGATIVE) Ur Buprenorphine Scrn (NEGATIVE) Ur Oxycodone Screen (NEGATIVE) Urine Methadone Screen (NEGATIVE) Ur Propoxyphene Screen (NEGATIVE) Ur Barbiturates Screen (NEGATIVE) Ur Tricyclics Screen (NEGATIVE) Ur Phencyclidine Scrn (NEGATIVE) Ur Amphetamine Screen (NEGATIVE) U Methamphetamines Scrn (NEGATIVE) U Benzodiazepines Scrn (NEGATIVE) U Cocaine Metab Screen (NEGATIVE) U Marijuana (THC) Screen (NEGATIVE) Meds: Medications Discontinued Medications Generic Name Dose Route Start Last Admin Trade Name Freq PRN Reason Stop Dose Admin Lactated Ringer's 1,000 mls @ 999 mls/hr 01/23/17 02:07 01/23/17 02:23 Ringers, Lactated IV 01/23/17 03:07 999 mls/hr .BOLUS ONE Administration Metoclopramide HCl 10 mg 01/23/17 02:07 01/23/17 02:24 Reglan IVPUSH 01/23/17 02:08 10 mg ONETIME ONE Administration Morphine Sulfate 2 mg 01/23/17 03:38 01/23/17 03:44 Morphine IVPUSH 01/23/17 03:39 2 mg ONETIME ONE Administration - Re-Assessments/Exams Free Text/Narrative Re-Assessment/Exam: 01/23/17 06:37 Laboratory evaluation unrevealing the patient and observe for several hours where he slept solid. He's not had any vomiting here in the department he has not had any diarrhea. Patient is ready to go home we'll discharge on Reglan. Departure - Departure Time of Disposition: 06:37 Disposition: Home, Self-Care 01 Clinical Impression: Vomiting, Diarrhea Prescriptions: Metoclopramide [Reglan] 10 mg PO Q6H PRN #12 tablet PRN Reason: Nausea/Vomiting Forms: ED Department Discharge Additional Instructions: Return to the emergency room with any questions or problems. You seem to be doing well with Reglan. We will continue this take one tablet every 6 hours as needed do not take more than recommended. Followup in the clinic on Friday for a recheck. - My Orders Last 24 Hours: My Active Orders 01/23/17 02:33 Orthostatic Vital Signs [RC] ASDIRECTED - Assessment/Plan Last 24 Hours: My Active Orders 01/23/17 02:33 Orthostatic Vital Signs [RC] ASDIRECTED
[2017-01-23] MEDS ORDERED: Metoclopramide 10 MG/2 ML SDV IVPUSH ONE (02:07)
[2017-01-23] MEDS ORDERED: Lactated Ringers 1,000 ML IV ONE (02:07)
[2017-01-23] MEDS ORDERED: Morphine 2 MG/ML Syringe IVPUSH ONE (03:38)
== END 2017-01-23 06:59 | disposition home or self-care (01) ==
LOC: JD.ED 01:30
DX: R11.2 Nausea with vomiting, unspecified (principal); R19.7 Diarrhea, unspecified; F41.9 Anxiety disorder, unspecified; F17.200 Nicotine dependence, unspecified, uncomplicated; R88.8 Abnormal findings in other body fluids and substances; Z79.899 Other long term (current) drug therapy
CPT/HCPCS: 36415; 80053; 80306; 81001; 85025; 96361; 96374; 96375; 99284; J2270; J2765; J7120

== ENCOUNTER 2017-01-23 21:13 | Emergency (ER) | payer OTHER ==
--- NOTE | 2017-01-23 21:17 | EDM.PDOC ---
ED HPI GI/ABDOMINAL - General Chief Complaint: Abdominal Pain Stated Complaint: [facility] Time Seen by Provider: 01/23/17 21:17 - History of Present Illness INITIAL COMMENTS - FREE TEXT/NARRATIVE: 36-year-old male presents emergency room with abdominal pain and diarrhea. He is brought in by EMS. Patient has been admitted and seen here on several occasions with watery stools diarrhea and nausea and vomiting as well as abdominal pain the patient had a prolonged admission here was discharged earlier this week he was seen in this department again last evening. He was discharged on Friday afternoon he was seen in the clinic he was seen here last evening earlier today he was seen at the [facility] where apparently they advised him to stop the metronidazole and tried to get stool studies. The patient states he did not stop the metronidazole.. The patient complains of dizziness and lightheadedness when he moves around he states he fell into the TV at the hotel he is staying at and broke it. Patient states his stools been black and somewhat tarry. The patient is concerned that he may get his kids sick. The patient has been on metronidazole for the duration of his admission and since then. He states she's been taking Klonopin not prescribed to him so he can get some sleep. He states he may be using other medications at this point but will not disclose where he gets these from. - Related Data Allergies/ADRs: Allergies Allergy/AdvReac Type Severity Reaction Status Date / Time haloperidol [From Haldol] Allergy Other Verified 01/23/17 21:15 Home Meds: Home Meds Bifidobacter. Bifidum/B.Longum [Florajen Bifidoblend] 460 mg PO DAILY #30 capsule 01/21/17 [Rx] Famotidine [Pepcid] 20 mg PO BID #30 tablet 01/21/17 [Rx] Magnesium Oxide 400 mg PO BID #60 tablet 01/21/17 [Rx] Ondansetron [Zofran ODT] 4 mg PO Q6H #40 tab.dis 01/21/17 [Rx] metroNIDAZOLE [Flagyl] 500 mg PO Q8H #30 tablet 01/21/17 [Rx] Acetaminophen/Butalbital/Caff [Fioricet 325-50-40 MG] 1 tab PO Q6H 01/23/17 [ History] Dicyclomine [Bentyl] 20 mg PO Q6HR PRN 01/23/17 [History] Metoclopramide [Reglan] 10 mg PO Q6H PRN #12 tablet 01/23/17 [Rx] Past Medical History HEENT History: Reports: Impaired vision Gastrointestinal History: Reports: Bowel obstruction, Other (see below) Other Gastrointestinal History: hernias; abdominal surgery, ulcers Musculoskeletal History: Reports: Back pain, chronic, Other (see below) Other Musculoskeletal History: disabled since 2007 Psychiatric History: Reports: Addiction, Anxiety, Other (see below) Other Psychiatric History: social anxiety, heroine use-clean for 6 years - Infectious Disease History Infectious Disease History: Reports: C-difficile - Past Surgical History HEENT Surgical History: Reports: Adenoidectomy, Eye surgery, Tonsillectomy GI Surgical History: Reports: Colonoscopy, Hernia, inguinal Musculoskeletal Surgical History: Reports: None Social & Family History - Family History Family Medical History: Noncontributory Immunologic: Reports: HIV Other Immunologic Family History: brother Oncologic: Reports: Leukemia Other Oncologic Family History: leukemia - Tobacco Use Smoking Status *Q: Current Every Day Smoker Years of Tobacco use: 20 Packs/Tins Daily: 1 Used Tobacco, but Quit: No Second Hand Smoke Exposure: Yes - Caffeine Use Caffeine Use: Reports: None - Recreational Drug Use Recreational Drug Use: Yes Drug Use in Last 12 Months: No Recreational Drug Type: Reports: Heroin, Marijuana/Hashish ED ROS GENERAL - Review of Systems Review Of Systems: See Below Constitutional: Reports: weakness, fatigue. Denies: fever, chills HEENT: Reports: No symptoms Respiratory: Reports: No Symptoms Cardiovascular: Reports: No symptoms GI/Abdominal: Reports: Abdominal pain, Diarrhea, Nausea, Vomiting. Denies: Constipation : Reports: no symptoms Musculoskeletal: Reports: no symptoms Neurological: Reports: No Symptoms ED EXAM, GI/ABD - Physical Exam Exam: See Below Exam Limited By: No limitations General Appearance: alert, no apparent distress, other (He is not orthostatic at the time of admission.) Eyes: bilateral: normal appearance Ears: normal external exam, normal canal, hearing grossly normal, normal TMs Nose: normal inspection, normal mucosa, no blood Throat/Mouth: Normal inspection, Normal lips, Normal teeth, Normal gums, Normal oropharynx, Normal voice, No airway compromise Head: atraumatic, normocephalic Neck: normal inspection, supple, non-tender, full range of motion. No: lymphadenopathy (L), lymphadenopathy (R) Respiratory/Chest: no respiratory distress, lungs clear, normal breath sounds Cardiovascular: regular rate, rhythm, no edema, no murmur GI/Abdominal: normal bowel sounds, soft, tenderness (To use nonlocalized tenderness). No: non tender, distention, guarding, rebound, rigidity Rectal (Males) Exam: Normal exam, Heme - stool, Other (Green stool residue) Back Exam: normal inspection Extremities: normal inspection, no pedal edema Course - Vital Signs Last Recorded V/S: Last Vital Signs Temp 36.6 C 01/23/17 21:15 Pulse 74 01/23/17 21:15 Resp 18 01/23/17 21:15 BP 115/80 01/23/17 21:15 Pulse Ox 100 01/23/17 21:15 Orthostatic Blood Pressure [ 111/80 Standing] Orthostatic Blood Pressure [ 116/87 Sitting] Orthostatic Blood Pressure [ 114/72 Supine] - Orders/Labs/Meds Orders: Active Orders 24 hr Category Date Time Status Abdomen 1V Flat [CR] Stat Exams 01/23/17 21:15 Taken OCCULT BLOOD DIAGNOSTIC [OP] Stat Lab 01/24/17 00:13 Ordered Labs: Laboratory Tests 01/23/17 01/23/17 01/23/17 Range/Units 21:30 21:30 22:15 WBC 8.39 (4.23-9.07) K/mm3 RBC 5.11 (4.63-6.08) M/mm3 Hgb 15.4 (13.7-17.5) gm/L Hct 44.9 (40.1-51.0) % MCV 87.9 (79.0-92.2) fl MCH 30.1 (25.7-32.2) pg MCHC 34.3 (32.2-35.5) g/dl RDW Std Deviation 44.0 H (35.1-43.9) fL Plt Count 234 (163-337) K/mm3 MPV 10.7 (9.4-12.3) fl Neutrophils % (Manual) 63 H (40-60) % Band Neutrophils % 0 (0-10) % Lymphocytes % (Manual) 29 (20-40) % Atypical Lymphs % 0 % Monocytes % (Manual) 7 (2-10) % Eosinophils % (Manual) 0 L (0.8-7.0) % Basophils % (Manual) 1 (0.2-1.2) Platelet Estimate Adequate Plt Morphology Comment Normal RBC Morph Comment Normal Sodium 143 (136-145) mEq/L Potassium 3.6 (3.5-5.1) mEq/L Chloride 108 H (98-107) mEq/L Carbon Dioxide 25 (21-32) mEq/L Anion Gap 13.6 (5-15) BUN 6 L (7-18) mg/dL Creatinine 1.0 (0.7-1.3) mg/dL Est Cr Clr Drug Dosing TNP Estimated GFR (MDRD) > 60 (>60) mL/min BUN/Creatinine Ratio 6.0 L (14-18) Glucose 87 (74-106) mg/dL Lactic Acid 0.9 (0.4-2.0) mmol/L Calcium 8.5 (8.5-10.1) mg/dL Total Bilirubin 0.6 (0.2-1.0) mg/dL AST 23 (15-37) U/L ALT 31 (16-63) U/L Alkaline Phosphatase 62 (46-116) U/L C-Reactive Protein < 0.2 (<1.0) mg/dL Total Protein 6.1 L (6.4-8.2) g/dl Albumin 3.5 (3.4-5.0) g/dl Globulin 2.6 gm/dL Albumin/Globulin Ratio 1.4 (1-2) TSH 3rd Generation 0.545 (0.358-3.74) uIU/mL Urine Color (Yellow) Urine Appearance (Clear) Urine pH (5.0-8.0) Ur Specific [place] (1.005-1.030) Urine Protein (Negative) Urine Glucose (UA) (Negative) Urine Ketones (Negative) Urine Occult Blood (Negative) Urine Nitrite (Negative) Urine Bilirubin (Negative) Urine Urobilinogen (0.2-1.0) Ur Leukocyte Esterase (Negative) Urine RBC (0-5) /hpf Urine WBC (0-5) /hpf Ur Epithelial Cells (0-5) /hpf Urine Bacteria (FEW) /hpf Urine Mucus (FEW) /hpf Urine Opiates Screen (NEGATIVE) Ur Buprenorphine Scrn (NEGATIVE) Ur Oxycodone Screen (NEGATIVE) Urine Methadone Screen (NEGATIVE) Ur Propoxyphene Screen (NEGATIVE) Ur Barbiturates Screen (NEGATIVE) Ur Tricyclics Screen (NEGATIVE) Ur Phencyclidine Scrn (NEGATIVE) Ur Amphetamine Screen (NEGATIVE) U Methamphetamines Scrn (NEGATIVE) U Benzodiazepines Scrn (NEGATIVE) U Cocaine Metab Screen (NEGATIVE) U Marijuana (THC) Screen (NEGATIVE) Ethyl Alcohol 0.00 (0.00) gm% 01/23/17 01/23/17 Range/Units 23:13 23:18 WBC (4.23-9.07) K/mm3 RBC (4.63-6.08) M/mm3 Hgb (13.7-17.5) gm/L Hct (40.1-51.0) % MCV (79.0-92.2) fl MCH (25.7-32.2) pg MCHC (32.2-35.5) g/dl RDW Std Deviation (35.1-43.9) fL Plt Count (163-337) K/mm3 MPV (9.4-12.3) fl Neutrophils % (Manual) (40-60) % Band Neutrophils % (0-10) % Lymphocytes % (Manual) (20-40) % Atypical Lymphs % % Monocytes % (Manual) (2-10) % Eosinophils % (Manual) (0.8-7.0) % Basophils % (Manual) (0.2-1.2) Platelet Estimate Plt Morphology Comment RBC Morph Comment Sodium (136-145) mEq/L Potassium (3.5-5.1) mEq/L Chloride (98-107) mEq/L Carbon Dioxide (21-32) mEq/L Anion Gap (5-15) BUN (7-18) mg/dL Creatinine (0.7-1.3) mg/dL Est Cr Clr Drug Dosing Estimated GFR (MDRD) (>60) mL/min BUN/Creatinine Ratio (14-18) Glucose (74-106) mg/dL Lactic Acid (0.4-2.0) mmol/L Calcium (8.5-10.1) mg/dL Total Bilirubin (0.2-1.0) mg/dL AST (15-37) U/L ALT (16-63) U/L Alkaline Phosphatase (46-116) U/L C-Reactive Protein (<1.0) mg/dL Total Protein (6.4-8.2) g/dl Albumin (3.4-5.0) g/dl Globulin gm/dL Albumin/Globulin Ratio (1-2) TSH 3rd Generation (0.358-3.74) uIU/mL Urine Color Yellow (Yellow) Urine Appearance Clear (Clear) Urine pH 7.0 (5.0-8.0) Ur Specific [place] 1.020 (1.005-1.030) Urine Protein Negative (Negative) Urine Glucose (UA) Negative (Negative) Urine Ketones 1+ H (Negative) Urine Occult Blood Negative (Negative) Urine Nitrite Negative (Negative) Urine Bilirubin Negative (Negative) Urine Urobilinogen 0.2 (0.2-1.0) Ur Leukocyte Esterase Negative (Negative) Urine RBC 0-5 (0-5) /hpf Urine WBC 0-5 (0-5) /hpf Ur Epithelial Cells 0-5 (0-5) /hpf Urine Bacteria Not seen (FEW) /hpf Urine Mucus Not seen (FEW) /hpf Urine Opiates Screen Presumptive positive H (NEGATIVE) Ur Buprenorphine Scrn Negative (NEGATIVE) Ur Oxycodone Screen Negative (NEGATIVE) Urine Methadone Screen Negative (NEGATIVE) Ur Propoxyphene Screen Negative (NEGATIVE) Ur Barbiturates Screen Presumptive positive H (NEGATIVE) Ur Tricyclics Screen Negative (NEGATIVE) Ur Phencyclidine Scrn Negative (NEGATIVE) Ur Amphetamine Screen Negative (NEGATIVE) U Methamphetamines Scrn Negative (NEGATIVE) U Benzodiazepines Scrn Negative (NEGATIVE) U Cocaine Metab Screen Negative (NEGATIVE) U Marijuana (THC) Screen Negative (NEGATIVE) Ethyl Alcohol (0.00) gm% Meds: Medications Discontinued Medications Generic Name Dose Route Start Last Admin Trade Name Anirudhq PRN Reason Stop Dose Admin Hydrocodone Bitart/Acetaminophen 1 tab 01/24/17 02:18 01/24/17 02:47 [place] 325-5 Mg PO 01/24/17 02:19 1 tab ONETIME ONE Administration Lactated Ringer's 1,000 mls @ 999 mls/hr 01/23/17 21:50 01/23/17 21:57 Ringers, Lactated IV 01/23/17 22:50 999 mls/hr .BOLUS ONE Administration Metoclopramide HCl 10 mg 01/24/17 02:17 01/24/17 02:28 Reglan IVPUSH 01/24/17 02:18 10 mg ONETIME ONE Administration - Re-Assessments/Exams Free Text/Narrative Re-Assessment/Exam: 01/24/17 03:23 The patient was observed in the department for a little over 6 hours. His vital signs remained stable he tried to have a BM at one point about midway through his stay however he could not go at the end he did have a medium watery stool. Had a long discussion area he's vomited one time. We had a long discussion he does not meet criteria for admission I discussed the situation with our hospitalist. It is possible that he has a refractory case he has been on the Flagyl for a week with minimal if any improvement according to the patient. We will start him on vancomycin 500 mg 4 times a day he says his medical card will pay for this. The patient brings up several occasions that he's worried about his kids caity this from him. I've informed him that is not a reason to admit the patient. The patient does not meet criteria for transfer to another facility. Departure - Departure Time of Disposition: 03:12 Disposition: Home, Self-Care 01 Clinical Impression: C. difficile diarrhea Instructions: Clostridium Difficile Infection, [id number] Referrals: PCP,None [Primary Care Provider] - Forms: ED Department Discharge Additional Instructions: Return to emergency room if any questions or problems. Followup in the clinic on Friday for recheck. Continue the metronidazole. You have been started on vancomycin this is an oral antibiotic to be used in addition to the metronidazole take this one tablet 4 times daily for 10 days. Use your Reglan, or metoclopramide 4 times daily to control the nausea and vomiting. - My Orders Last 24 Hours: My Active Orders 01/23/17 21:15 Abdomen 1V Flat [CR] Stat 01/24/17 00:13 OCCULT BLOOD DIAGNOSTIC [OP] Stat - Assessment/Plan Last 24 Hours: My Active Orders 01/23/17 21:15 Abdomen 1V Flat [CR] Stat 01/24/17 00:13 OCCULT BLOOD DIAGNOSTIC [OP] Stat
[2017-01-23 21:22] VITALS: BP 115/80
[2017-01-23] MEDS ORDERED: Lactated Ringers 1,000 ML IV ONE (21:50)
[2017-01-24] MEDS ORDERED: Metoclopramide 10 MG/2 ML SDV IVPUSH ONE (02:17)
[2017-01-24] MEDS ORDERED: Acetaminophen/HYDROcodone 325-5 MG Tab PO ONE (02:18)
--- NOTE | 2017-01-24 07:36 | CR ---
Abdomen: Supine view of the abdomen was obtained. Comparison: Previous abdominal x-ray of 01/16/17. Bowel gas pattern is normal. Calcifications are identified within the pelvis which are felt compatible with phleboliths. Bony structures are unremarkable for the patient's age. Impression: 1. Incidental findings. Diagnostic code #1
== END 2017-01-24 03:30 | disposition home or self-care (01) ==
LOC: JD.ED 21:13
DX: A04.7 Enterocolitis due to Clostridium difficile (principal); F41.9 Anxiety disorder, unspecified; F17.210 Nicotine dependence, cigarettes, uncomplicated; Z88.8 Allergy status to other drugs, medicaments and biological substances; Z79.899 Other long term (current) drug therapy; Z98.890 Other specified postprocedural states; R11.2 Nausea with vomiting, unspecified; R19.7 Diarrhea, unspecified; R88.8 Abnormal findings in other body fluids and substances; R42 Dizziness and giddiness
CPT/HCPCS: 36415; 74000; 80053; 80306; 81001; 82270; 83605; 84443; 85025; 86140; 96361; 96374; 96375; 99284; 99285; A9270; G0480; J2270; J2765; J7120

== ENCOUNTER 2017-01-25 21:36 | Emergency (ER) | payer OTHER ==
[2017-01-25 21:50] VITALS: BP 125/91
--- NOTE | 2017-01-25 23:33 | EDM.PDOC ---
ED HPI GI/ABDOMINAL - General Chief Complaint: Abdominal Pain Stated Complaint: C-DIFF [facility] Time Seen by Provider: 01/25/17 21:55 Source of Information: Reports: Patient History Limitations: Reports: No limitations - History of Present Illness INITIAL COMMENTS - FREE TEXT/NARRATIVE: There is a 36 -year-old male. He has a history of C. difficile was just in the hospital and discharged on Friday. He was seen here 2 days ago for abdominal discomfort and continued symptoms. He was on Flagyl from his discharge and Donna Louis is primary care provider took him off the Flagyl and put him on vancomycin. He states he been taking the medication faithfully. He says he feels weak and tired. He has little control of his bowels he has constant burning or discomfort in his abdomen for which she wants relief. He was given some Vicodin from the ER earlier but he says he took at all and about a day but he did make a difference. The unfortunate part as he has a history of drug addiction including heroin and narcotics and I am not willing to put him at risk or add an additional problem to his already medical problem. He is guarded tried tramadol in the past makes him jittery. He is on butalbital but is not helping. He has been on some Reglan he is also taking Zofran which isn't helping. No one at this juncture and refer him to a GI doctor for evaluation. He denies any fever or chills. He does have nausea but minimal vomiting. His stools are still about the same as they were the previous several days. - Related Data Allergies/ADRs: Allergies Allergy/AdvReac Type Severity Reaction Status Date / Time haloperidol [From Haldol] Allergy Other Verified 01/23/17 21:15 Home Meds: Home Meds Famotidine [Pepcid] 20 mg PO BID #30 tablet 01/21/17 [Rx] Magnesium Oxide 400 mg PO BID #60 tablet 01/21/17 [Rx] Ondansetron [Zofran ODT] 4 mg PO Q6H #40 tab.dis 01/21/17 [Rx] Acetaminophen/Butalbital/Caff [Fioricet 325-50-40 MG] 1 tab PO Q6H 01/23/17 [ History] Dicyclomine [Bentyl] 20 mg PO Q6HR PRN 01/23/17 [History] Metoclopramide [Reglan] 10 mg PO Q6H PRN #12 tablet 01/23/17 [Rx] Hydrocodone/Acetaminophen [Hydrocodon-Acetaminoph 2.5-325] 1 tab PO Q6H PRN [History] Vancomycin HCl [Vancocin HCl] 125 mg PO Q6H 01/25/17 [History] Past Medical History HEENT History: Reports: Impaired vision Gastrointestinal History: Reports: Bowel obstruction, Other (see below) Other Gastrointestinal History: hernias; abdominal surgery, ulcers Musculoskeletal History: Reports: Back pain, chronic, Other (see below) Other Musculoskeletal History: disabled since 2007 Psychiatric History: Reports: Addiction, Anxiety, Other (see below) Other Psychiatric History: social anxiety, heroine use-clean for 6 years - Infectious Disease History Infectious Disease History: Reports: C-difficile - Past Surgical History HEENT Surgical History: Reports: Adenoidectomy, Eye surgery, Tonsillectomy GI Surgical History: Reports: Colonoscopy, Hernia, inguinal Musculoskeletal Surgical History: Reports: None Social & Family History - Family History Family Medical History: Noncontributory Immunologic: Reports: HIV Other Immunologic Family History: brother Oncologic: Reports: Leukemia Other Oncologic Family History: leukemia - Tobacco Use Smoking Status *Q: Current Every Day Smoker Years of Tobacco use: 20 Packs/Tins Daily: 1 Used Tobacco, but Quit: No Second Hand Smoke Exposure: Yes - Caffeine Use Caffeine Use: Reports: None - Recreational Drug Use Recreational Drug Use: Yes Drug Use in Last 12 Months: No Recreational Drug Type: Reports: Heroin, Marijuana/Hashish ED ROS GENERAL - Review of Systems Review Of Systems: See Below Constitutional: Reports: malaise, weakness. Denies: fever, chills HEENT: Reports: No symptoms Respiratory: Reports: No Symptoms Cardiovascular: Reports: No symptoms Endocrine: Reports: no symptoms GI/Abdominal: Reports: Abdominal pain, Diarrhea, Decreased appetite, Nausea : Reports: no symptoms Musculoskeletal: Reports: no symptoms Skin: Reports: no symptoms Neurological: Reports: No Symptoms Psychiatric: Reports: No symptoms Hematologic/Lymphatic: Reports: no symptoms Immunologic: Reports: no symptoms ED EXAM, GI/ABD - Physical Exam Exam: See Below Exam Limited By: No limitations General Appearance: alert, WD/WN, no apparent distress Eyes: bilateral: normal appearance (Patient has a lazy left eye with lateral deviation) Ears: normal external exam Nose: normal inspection Throat/Mouth: Normal lips, Normal voice Head: atraumatic Neck: supple Respiratory/Chest: no respiratory distress, lungs clear, normal breath sounds Cardiovascular: regular rate, rhythm, no murmur GI/Abdominal: soft, other (The patient's discomfort is periumbilical, and he is very apprehensive about me putting any pressure on palpation of his abdomen, bowel sounds are positive however) Back Exam: full range of motion Extremities: normal inspection, normal range of motion, other (Skin turgor is fair) Neurological: alert, oriented Psychiatric: normal affect, normal mood Skin Exam: Warm, Dry Course - Vital Signs Last Recorded V/S: Last Vital Signs Temp 98.6 F 01/25/17 21:48 Pulse 81 01/25/17 21:48 Resp 20 01/25/17 21:48 BP 125/91 H 01/25/17 21:48 Pulse Ox 99 01/25/17 21:48 - Orders/Labs/Meds Labs: Laboratory Tests 01/25/17 01/25/17 Range/Units 22:38 22:38 WBC 8.96 (4.23-9.07) K/mm3 RBC 4.98 (4.63-6.08) M/mm3 Hgb 15.2 (13.7-17.5) gm/L Hct 43.9 (40.1-51.0) % MCV 88.2 (79.0-92.2) fl MCH 30.5 (25.7-32.2) pg MCHC 34.6 (32.2-35.5) g/dl RDW Std Deviation 43.7 (35.1-43.9) fL Plt Count 234 (163-337) K/mm3 MPV 10.3 (9.4-12.3) fl Neut % (Auto) 53.2 (34.0-67.9) % Lymph % (Auto) 36.2 (21.8-53.1) % [place] % (Auto) 9.0 (5.3-12.2) % Eos % (Auto) 1.2 (0.8-7.0) Baso % (Auto) 0.3 (0.1-1.2) % Neut # (Auto) 4.76 (1.78-5.38) K/mm3 Lymph # (Auto) 3.24 (1.32-3.57) K/mm3 [place] # (Auto) 0.81 (0.30-0.82) K/mm3 Eos # (Auto) 0.11 (0.04-0.54) K/mm3 Baso # (Auto) 0.03 (0.01-0.08) K/mm3 Sodium 141 (136-145) mEq/L Potassium 3.5 (3.5-5.1) mEq/L Chloride 107 (98-107) mEq/L Carbon Dioxide 27 (21-32) mEq/L Anion Gap 10.5 (5-15) BUN 8 (7-18) mg/dL Creatinine 0.9 (0.7-1.3) mg/dL Est Cr Clr Drug Dosing 99.96 mL/min Estimated GFR (MDRD) > 60 (>60) mL/min BUN/Creatinine Ratio 8.9 L (14-18) Glucose 126 H (74-106) mg/dL Calcium 8.5 (8.5-10.1) mg/dL Total Bilirubin 0.3 (0.2-1.0) mg/dL AST 18 (15-37) U/L ALT 31 (16-63) U/L Alkaline Phosphatase 61 (46-116) U/L Total Protein 6.1 L (6.4-8.2) g/dl Albumin 3.5 (3.4-5.0) g/dl Globulin 2.6 gm/dL Albumin/Globulin Ratio 1.4 (1-2) - Re-Assessments/Exams Free Text/Narrative Re-Assessment/Exam: 01/26/17 00:10 I had a long discussion with the patient. He doesn't want Phenergan he doesn't want left-sided. He wants something is going to help his abdomen. When I asked him whether he is asking for narcotics he says no but that is really what helps him. He needs to see his primary care doctor and have her refer him to a GI doctor for fecal transplant since these other medications and antibiotics don't seem to be helping him. This is up to him to get that appointment with his primary care doctor. He is somewhat upset and wants to leave without the discharge papers however he needs a taxi voucher and less he states for the paperwork he will get a taxi voucher so he is going to stay for the paperwork. 01/26/17 00:14 I spoke to the patient about putting him on some probiotics he says he can't afford them and that's why he is on some yogurt has got some active cultures which is good, since the Zofran doesn't work all put him on some Phenergan but he doesn't vomit and also place him on some Levsin which he does not want and refuses the prescriptions. Again encouraged him to see his primary care provider to be referred to a GI specialist for a possible fecal transplant which I think would make a big difference in his treatment and his symptoms. Departure - Departure Time of Disposition: 00:12 Disposition: Home, Self-Care 01 Condition: fair Clinical Impression: C. difficile diarrhea, Abdominal discomfort, Nausea Referrals: Chaya Louis NP [Primary Care Provider] - Forms: ED Department Discharge Additional Instructions: Continue with the vancomycin, use the Zofran as needed for nausea since you did not want the Phenergan, all appear primary care provider since you need a referral to a GI specialist the possibility of a fecal transplant up with your symptoms and resolve you of C. difficile, turned to the ER if needed
== END 2017-01-26 00:20 | disposition home or self-care (01) ==
LOC: JD.ED 21:36
DX: A04.7 Enterocolitis due to Clostridium difficile (principal); R10.9 Unspecified abdominal pain; R11.0 Nausea; F41.9 Anxiety disorder, unspecified; F17.210 Nicotine dependence, cigarettes, uncomplicated; Z88.8 Allergy status to other drugs, medicaments and biological substances; Z79.899 Other long term (current) drug therapy
CPT/HCPCS: 36415; 80053; 85025; 99282; 99284

== ENCOUNTER 2017-02-01 23:38 | Emergency (ER) | payer OTHER ==
[2017-02-01 23:57] VITALS: BP 153/78
--- NOTE | 2017-02-02 00:51 | EDM.PDOC ---
ED HPI RENAL/ - General Chief Complaint: Genitourinary Problem Stated Complaint: UNABLE TO URINATE Time Seen by Provider: 02/01/17 23:49 Source of Information: Reports: Patient History Limitations: Reports: No limitations - History of Present Illness INITIAL COMMENTS - FREE TEXT/NARRATIVE: This is a 36-year-old male who has Clostridium difficile. He is to meet with the GI specialist on the in [place] were evaluation of his symptoms as there is nothing that seems to make his C. difficile better. He comes tonight because he thinks he cannot pee. He says that he is drunk 4 gallons of liquid in the last 2 days and really hasn't been much at all. Of course these having lots of diarrhea. This morning when he did pee it was very dark and it burned. He has loss of discomfort in the lower abdomen so he thinks he is distended from his bladder and wants to be checked. He denies any fever or chills no nausea or vomiting. - Related Data Allergies/ADRs: Allergies Allergy/AdvReac Type Severity Reaction Status Date / Time haloperidol [From Haldol] Allergy Other Verified 01/23/17 21:15 Home Meds: Home Meds Famotidine [Pepcid] 20 mg PO BID #30 tablet 01/21/17 [Rx] Magnesium Oxide 400 mg PO BID #60 tablet 01/21/17 [Rx] Ondansetron [Zofran ODT] 4 mg PO Q6H #40 tab.dis 01/21/17 [Rx] Acetaminophen/Butalbital/Caff [Fioricet 325-50-40 MG] 1 tab PO Q6H 01/23/17 [ History] Dicyclomine [Bentyl] 20 mg PO Q6HR PRN 01/23/17 [History] Metoclopramide [Reglan] 10 mg PO Q6H PRN #12 tablet 01/23/17 [Rx] Hydrocodone/Acetaminophen [Hydrocodon-Acetaminoph 2.5-325] 1 tab PO Q6H PRN [History] Vancomycin HCl [Vancocin HCl] 125 mg PO Q6H 01/25/17 [History] Promethazine [Phenergan] 25 mg PO Q4H PRN #20 tablet 02/02/17 [Rx] Past Medical History HEENT History: Reports: Impaired vision Gastrointestinal History: Reports: Bowel obstruction, Other (see below) Other Gastrointestinal History: hernias; abdominal surgery, ulcers Musculoskeletal History: Reports: Back pain, chronic, Other (see below) Other Musculoskeletal History: disabled since 2007 Psychiatric History: Reports: Addiction, Anxiety, Other (see below) Other Psychiatric History: social anxiety, heroine use-clean for 6 years - Infectious Disease History Infectious Disease History: Reports: C-difficile - Past Surgical History HEENT Surgical History: Reports: Adenoidectomy, Eye surgery, Tonsillectomy GI Surgical History: Reports: Colonoscopy, Hernia, inguinal Musculoskeletal Surgical History: Reports: None Social & Family History - Family History Family Medical History: Noncontributory Immunologic: Reports: HIV Other Immunologic Family History: brother Oncologic: Reports: Leukemia Other Oncologic Family History: leukemia - Tobacco Use Smoking Status *Q: Current Every Day Smoker Years of Tobacco use: 20 Packs/Tins Daily: 1 Used Tobacco, but Quit: No Second Hand Smoke Exposure: Yes - Caffeine Use Caffeine Use: Reports: None - Recreational Drug Use Recreational Drug Use: Yes Drug Use in Last 12 Months: No Recreational Drug Type: Reports: Heroin, Marijuana/Hashish ED ROS GENERAL - Review of Systems Review Of Systems: See Below Constitutional: Denies: fever, chills HEENT: Reports: No symptoms Respiratory: Reports: No Symptoms Cardiovascular: Reports: No symptoms Endocrine: Reports: no symptoms GI/Abdominal: Reports: Abdominal pain, Diarrhea, Decreased appetite : Reports: dysuria Musculoskeletal: Reports: no symptoms Skin: Reports: no symptoms Neurological: Reports: No Symptoms Psychiatric: Reports: No symptoms ED EXAM, RENAL/ - Physical Exam Exam: See Below Exam Limited By: No limitations General Appearance: alert, WD/WN, mild distress Ears: normal external exam Nose: normal inspection Throat/Mouth: Normal inspection, Normal lips, Normal voice, Other (Mucous membranes are moist) Head: normocephalic Neck: supple Respiratory/Chest: no respiratory distress, lungs clear, normal breath sounds Cardiovascular: regular rate, rhythm, no murmur GI/Abdominal: soft, other (His lower abdomen does not appear to be distended though it is somewhat generalized tender all across his lower abdomen, I cannot feel the bladder it does not feel distended) Back Exam: full range of motion Extremities: normal inspection, normal range of motion Neurological: alert, oriented Psychiatric: normal affect, normal mood Skin Exam: Warm, Dry Course - Vital Signs Last Recorded V/S: Last Vital Signs Temp 98.1 F 02/01/17 23:53 Pulse 99 02/01/17 23:53 Resp 16 02/01/17 23:53 BP 153/78 H 02/01/17 23:53 Pulse Ox 99 02/01/17 23:53 - Orders/Labs/Meds Orders: Active Orders 24 hr Category Date Time Status Sodium Chloride 0.9% [Normal Saline] 1,000 ml Med 02/02/17 01:30 Active IV ASDIRECTED Medication Orders Sodium Chloride (Normal Saline) 1,000 mls @ 1,000 mls/hr IV ASDIRECTED HANK Stop: 02/03/17 02:29 Last Admin: 02/02/17 01:49 Dose: 1,000 mls/hr Infusion: 02/02/17 01:49 Dose: 1,000 mls/hr Admin: 02/02/17 01:48 Dose: 1,000 mls/hr Labs: Laboratory Tests 02/02/17 02/02/17 02/02/17 Range/Units 00:20 00:30 00:30 WBC 12.61 H (4.23-9.07) K/mm3 RBC 5.24 (4.63-6.08) M/mm3 Hgb 15.8 (13.7-17.5) gm/L Hct 46.3 (40.1-51.0) % MCV 88.4 (79.0-92.2) fl MCH 30.2 (25.7-32.2) pg MCHC 34.1 (32.2-35.5) g/dl RDW Std Deviation 44.9 H (35.1-43.9) fL Plt Count 291 (163-337) K/mm3 MPV 10.2 (9.4-12.3) fl Neut % (Auto) 61.9 (34.0-67.9) % Lymph % (Auto) 27.5 (21.8-53.1) % [place] % (Auto) 9.1 (5.3-12.2) % Eos % (Auto) 1.0 (0.8-7.0) Baso % (Auto) 0.3 (0.1-1.2) % Neut # (Auto) 7.79 H (1.78-5.38) K/mm3 Lymph # (Auto) 3.47 (1.32-3.57) K/mm3 [place] # (Auto) 1.15 H (0.30-0.82) K/mm3 Eos # (Auto) 0.13 (0.04-0.54) K/mm3 Baso # (Auto) 0.04 (0.01-0.08) K/mm3 Sodium 138 (136-145) mEq/L Potassium 3.7 (3.5-5.1) mEq/L Chloride 102 (98-107) mEq/L Carbon Dioxide 18 L (21-32) mEq/L Anion Gap 21.7 H (5-15) BUN 19 H (7-18) mg/dL Creatinine 1.0 (0.7-1.3) mg/dL Est Cr Clr Drug Dosing TNP Estimated GFR (MDRD) > 60 (>60) mL/min BUN/Creatinine Ratio 19.0 H (14-18) Glucose 69 L (74-106) mg/dL Calcium 8.9 (8.5-10.1) mg/dL Total Bilirubin 1.4 H (0.2-1.0) mg/dL AST 28 (15-37) U/L ALT 40 (16-63) U/L Alkaline Phosphatase 76 (46-116) U/L Total Protein 7.3 (6.4-8.2) g/dl Albumin 4.1 (3.4-5.0) g/dl Globulin 3.2 gm/dL Albumin/Globulin Ratio 1.3 (1-2) Urine Color Yellow (Yellow) Urine Appearance Clear (Clear) Urine pH 5.5 (5.0-8.0) Ur Specific [place] > or = 1.030 (1.005-1.030) Urine Protein 1+ H (Negative) Urine Glucose (UA) Negative (Negative) Urine Ketones 3+ H (Negative) Urine Occult Blood Negative (Negative) Urine Nitrite Negative (Negative) Urine Bilirubin 1+ H (Negative) Urine Urobilinogen 0.2 (0.2-1.0) Ur Leukocyte Esterase Negative (Negative) Urine RBC Not seen (0-5) /hpf Urine WBC 0-5 (0-5) /hpf Ur Epithelial Cells Not seen (0-5) /hpf Urine Bacteria Few (FEW) /hpf Urine Mucus Few (FEW) /hpf 02/02/17 Range/Units 02:45 WBC (4.23-9.07) K/mm3 RBC (4.63-6.08) M/mm3 Hgb (13.7-17.5) gm/L Hct (40.1-51.0) % MCV (79.0-92.2) fl MCH (25.7-32.2) pg MCHC (32.2-35.5) g/dl RDW Std Deviation (35.1-43.9) fL Plt Count (163-337) K/mm3 MPV (9.4-12.3) fl Neut % (Auto) (34.0-67.9) % Lymph % (Auto) (21.8-53.1) % [place] % (Auto) (5.3-12.2) % Eos % (Auto) (0.8-7.0) Baso % (Auto) (0.1-1.2) % Neut # (Auto) (1.78-5.38) K/mm3 Lymph # (Auto) (1.32-3.57) K/mm3 [place] # (Auto) (0.30-0.82) K/mm3 Eos # (Auto) (0.04-0.54) K/mm3 Baso # (Auto) (0.01-0.08) K/mm3 Sodium 140 (136-145) mEq/L Potassium 3.6 (3.5-5.1) mEq/L Chloride 106 (98-107) mEq/L Carbon Dioxide 17 L (21-32) mEq/L Anion Gap 20.6 H (5-15) BUN 17 (7-18) mg/dL Creatinine 0.9 (0.7-1.3) mg/dL Est Cr Clr Drug Dosing TNP Estimated GFR (MDRD) > 60 (>60) mL/min BUN/Creatinine Ratio 18.9 H (14-18) Glucose 58 L (74-106) mg/dL Calcium 7.7 L (8.5-10.1) mg/dL Total Bilirubin 1.1 H (0.2-1.0) mg/dL AST 24 (15-37) U/L ALT 36 (16-63) U/L Alkaline Phosphatase 66 (46-116) U/L Total Protein 6.2 L (6.4-8.2) g/dl Albumin 3.5 (3.4-5.0) g/dl Globulin 2.7 gm/dL Albumin/Globulin Ratio 1.3 (1-2) Urine Color (Yellow) Urine Appearance (Clear) Urine pH (5.0-8.0) Ur Specific [place] (1.005-1.030) Urine Protein (Negative) Urine Glucose (UA) (Negative) Urine Ketones (Negative) Urine Occult Blood (Negative) Urine Nitrite (Negative) Urine Bilirubin (Negative) Urine Urobilinogen (0.2-1.0) Ur Leukocyte Esterase (Negative) Urine RBC (0-5) /hpf Urine WBC (0-5) /hpf Ur Epithelial Cells (0-5) /hpf Urine Bacteria (FEW) /hpf Urine Mucus (FEW) /hpf Meds: Medications Generic Name Dose Route Start Last Admin Trade Name Freq PRN Reason Stop Dose Admin Sodium Chloride 1,000 mls @ 1,000 mls/hr 02/02/17 01:30 02/02/17 01:49 Normal Saline IV 02/03/17 02:29 1,000 mls/hr ASDIRECTED HANK Administration Discontinued Medications Generic Name Dose Route Start Last Admin Trade Name Freq PRN Reason Stop Dose Admin Hydromorphone HCl 1 mg 02/02/17 01:32 02/02/17 01:47 Dilaudid IM 02/02/17 01:33 1 mg ONETIME ONE Administration - Re-Assessments/Exams Free Text/Narrative Re-Assessment/Exam: 02/02/17 03:36 Looking at his initial CMP he obviously is dehydrated despite him trying to drink lots of fluids. He is noted to have a low blood sugar especially with the second CMP after getting 2 L of fluids he says he feels better. We gave him an amp of D50 IV before we sent him home. I have encouraged him multiple times during this hospital stay that he needs to go to [facility] to the ER in [place] be evaluated and have a GI doctor put him in the hospital to take care of his Clostridium difficile. I discussed this with at least 4 times during his hospital stay. I am concerned about his dehydration it seems to be persistent despite him saying he is drinking lots of fluids. Going to change his nausea medicine to Phenergan he can get back on the Pepcid since I think he's got a developing gastritis as well. I encouraged him to come back to the ER for reevaluation if things are just out of control for him. Departure - Departure Time of Disposition: 03:37 Disposition: Home, Self-Care 01 Condition: fair Clinical Impression: Clostridium difficile diarrhea, Dehydration, Hypoglycemia, Abdominal cramps Nausea & vomiting Qualifiers: Vomiting type: unspecified Vomiting Intractability: non-intractable Qualified Code(s): R11.2 - Nausea with vomiting, unspecified Prescriptions: Promethazine [Phenergan] 25 mg PO Q4H PRN #20 tablet PRN Reason: Nausea Forms: ED Department Discharge Additional Instructions: As soon as you are able to get to [facility] to the [place] ER has been evaluated she wouldn't see if the GI doctor who put you in the hospital for treatment, start taking the Phenergan for the nausea, take the Pepcid again like you were before, continue to try to drink fluids, what ever it seems that you're able to hold down while eating go ahead and eat it since getting anything down is better than nothing, please return to the ER if you're symptoms continue to worsen - My Orders Last 24 Hours: My Active Orders 02/02/17 01:30 Sodium Chloride 0.9% [Normal Saline] 1,000 ml IV ASDIRECTED - Assessment/Plan Last 24 Hours: My Active Orders 02/02/17 01:30 Sodium Chloride 0.9% [Normal Saline] 1,000 ml IV ASDIRECTED
[2017-02-02] MEDS ORDERED: HYDROmorphone 1 MG/ML Syringe IM ONE (01:32)
[2017-02-02] MEDS: Sodium Chloride 0.9% 1,000 ML IV SCH ×2 (01:48→01:49)
[2017-02-02] MEDS ORDERED: 50% Dextrose in Water 50 ML Syringe IVPUSH ONE (03:46)
[2017-02-02] MEDS ORDERED: 50% Dextrose in Water 50 ML Syringe ONE (03:50)
== END 2017-02-02 03:55 | disposition home or self-care (01) ==
LOC: JD.ED 23:38
DX: A04.7 Enterocolitis due to Clostridium difficile (principal); E86.0 Dehydration; E16.2 Hypoglycemia, unspecified; R10.9 Unspecified abdominal pain; R11.2 Nausea with vomiting, unspecified; F17.210 Nicotine dependence, cigarettes, uncomplicated; F41.9 Anxiety disorder, unspecified; Z90.49 Acquired absence of other specified parts of digestive tract; Z98.890 Other specified postprocedural states
CPT/HCPCS: 36415; 80053; 81001; 85025; 96361; 96372; 96374; 99284; J1170; J7040; J7060; P9612

== ENCOUNTER 2017-03-24 10:24 | Emergency (ER) | payer OTHER ==
[2017-03-24 10:47] VITALS: BP 125/87
[2017-03-24] MEDS ORDERED: Ketorolac 60 MG/2 ML SDV IM ONE (10:58)
[2017-03-24] MEDS ORDERED: Acetaminophen/oxyCODONE 325-5 MG Tab PO ONE (10:58)
--- NOTE | 2017-03-24 11:00 | EDM.PDOC ---
ED HPI GENERAL MEDICAL PROBLEM - General Chief Complaint: Lower Extremity Injury/Pain Stated Complaint: FALL FROM A TREE X 1WK/HIP AND KNEE PAIN Time Seen by Provider: 03/24/17 10:57 Source of Information: Reports: Patient History Limitations: Reports: No Limitations - History of Present Illness INITIAL COMMENTS - FREE TEXT/NARRATIVE: The patient is a 36-year-old male with a chief complaint of back pain and bilateral hip and knee pain after a fall. The patient fell out of the tree that he was working on about a week ago. He states that a branch he was standing on snapped while he was in processes setting up his gear to secure himself to the tree. He fell about 15 feet. He landed on his feet. He had pain in his back and his legs at that time but did not seek medical attention. He comes in today because he continues to have pain in his back and his legs. He went to his primary care doctor's office but they sent him here for evaluation. States that he has severe pain in his lower back. The pain is constant, sharp, severe, nonradiating, worse with movement, no relieving factors. He also has pain in his bilateral hips and knees. States that it feels painful and all of these joints when he walks. He is able to bear weight and walk. States that he has some discomfort in his feet as well but this is not bad. He's been taking NSAIDs at home for pain with mild relief. Denies additional injury. No head injury. No neck pain. No chest pain. Has chronic abdominal pain but no change in this today. Denies recent illness. Lower Back Pain Score (Numeric/FACES): 8 Bilateral Hip Pain Score (Numeric/FACES): 7 Bilateral Knee Pain Score (Numeric/FACES): 7 - Related Data Allergies Allergy/AdvReac Type Severity Reaction Status Date / Time haloperidol [From Haldol] Allergy Other Verified 03/24/17 10:48 metronidazole [From Flagyl] Allergy Dizziness Verified 03/24/17 10:48 Home Meds: Home Meds Amoxicillin 1 tab PO DAILY 03/24/17 [History] Hydrocodone/Acetaminophen [Vicodin 5-300 mg Tablet] 1 each PO BID PRN #8 tablet 03/24/17 [Rx] Omeprazole Magnesium [Prilosec Otc] 20 mg PO DAILY 03/24/17 [History] Past Medical History HEENT History: Reports: Impaired Vision Gastrointestinal History: Reports: Bowel Obstruction, Helicobacter Pylori, Other (See Below) Other Gastrointestinal History: c. diff Musculoskeletal History: Reports: Back Pain, Chronic, Other (See Below) Other Musculoskeletal History: disabled since 2007 Psychiatric History: Reports: Addiction, Anxiety, Other (See Below) Other Psychiatric History: social anxiety, heroine use-clean for 6 years - Infectious Disease History Infectious Disease History: Reports: C-Difficile - Past Surgical History HEENT Surgical History: Reports: Adenoidectomy, Eye Surgery, Tonsillectomy GI Surgical History: Reports: Colonoscopy, Hernia, Inguinal Social & Family History - Family History Family Medical History: Noncontributory Immunologic: Reports: HIV Other Immunologic Family History: brother Oncologic: Reports: Leukemia Other Oncologic Family History: leukemia - Tobacco Use Smoking Status *Q: Current Every Day Smoker Years of Tobacco use: 20 Packs/Tins Daily: 1 Used Tobacco, but Quit: No Second Hand Smoke Exposure: Yes - Caffeine Use Caffeine Use: Reports: None - Recreational Drug Use Recreational Drug Use: Yes Drug Use in Last 12 Months: No Recreational Drug Type: Reports: Marijuana/Hashish Recreational Drug Use Frequency: Rarely Review of Systems - Review of Systems Review Of Systems: See Below Constitutional: Reports: No Symptoms Eyes: Reports: No Symptoms Ears: Reports: No Symptoms Nose: Reports: No Symptoms Mouth/Throat: Reports: No Symptoms Respiratory: Denies: Pleuritic Chest Pain Cardiovascular: Denies: Chest Pain GI/Abdominal: Reports: No Symptoms Genitourinary: Reports: No Symptoms Musculoskeletal: Reports: Back Pain, Leg Pain. Denies: Neck Pain Skin: Reports: No Symptoms Neurological: Reports: No Symptoms ED EXAM, GENERAL - Physical Exam Exam: See Below Exam Limited By: No Limitations General Appearance: Alert, WD/WN, No Apparent Distress Eye Exam: Bilateral Eye: Normal Inspection Ears: Normal External Exam Nose: Normal Inspection, Normal Mucosa, No Blood Throat/Mouth: Normal Inspection, Normal Voice, No Airway Compromise Head: Atraumatic, Normocephalic Neck: Normal Inspection, Supple, Non-Tender, Full Range of Motion Respiratory/Chest: No Respiratory Distress, Lungs Clear, Normal Breath Sounds, No Accessory Muscle Use, Chest Non-Tender Cardiovascular: Normal Peripheral Pulses, Regular Rate, Rhythm, No Edema GI/Abdominal: Soft, Non-Tender, No Distention Back Exam: Normal Inspection, Full Range of Motion, Other (Vertebral tenderness in the mid and lower L-spine, no step-offs or deformities, skin normal, no fluctuance or palpable abnormality). No: CVA Tenderness (L), CVA Tenderness (R) Extremities: Normal Inspection, Normal Range of Motion, Other (Full range of motion in bilateral lower extremities, patient has anterior hip tenderness bilaterally. No femur tenderness bilaterally. Also has diffuse tenderness about both knees. No knee effusion. Skin normal throughout. No deformity throughout. No foot swelling or sign of trauma. Feet warm and well perfused. Motor/sensation /perfusion intact throughout bilateral lower extremities.) Neurological: Alert, Oriented, Normal Cognition, No Motor/Sensory Deficits Psychiatric: Normal Affect, Normal Mood Skin Exam: Warm, Dry, Intact, Normal Color, No Rash Course - Vital Signs Last Recorded V/S: Last Vital Signs Temp 37.0 C 03/24/17 10:41 Pulse 85 03/24/17 10:41 Resp 18 03/24/17 10:41 BP 125/87 03/24/17 10:41 Pulse Ox 100 03/24/17 10:41 - Orders/Labs/Meds Orders: Active Orders 24 hr Category Date Time Status Hip Min 2V or 3V Lt [CR] Stat Exams 03/24/17 10:58 Taken Hip Min 2V or 3V Rt [CR] Stat Exams 03/24/17 10:58 Taken Knee 3V Lt [CR] Stat Exams 03/24/17 10:58 Taken Knee 3V Rt [CR] Stat Exams 03/24/17 10:58 Taken Meds: Medications Discontinued Medications Generic Name Dose Route Start Last Admin Trade Name Kali PRN Reason Stop Dose Admin Ketorolac Tromethamine 60 mg 03/24/17 10:58 03/24/17 11:30 Toradol IM 03/24/17 10:59 60 mg ONETIME ONE Administration Oxycodone/Acetaminophen 1 tab 03/24/17 10:58 03/24/17 11:29 Percocet 325-5 Mg PO 03/24/17 10:59 1 tab ONETIME ONE Administration - Re-Assessments/Exams Free Text/Narrative Re-Assessment/Exam: 03/24/17 11:56 Bilateral hip and knee x-rays showed normal bony alignment, no evidence of acute injury. L-spine CT scan shows unilateral spondylotic defect at L5 on the left side that appears to be old mild degenerative changes at L5-S1, no additional abnormality. Patient has no evidence of traumatic bony injury. He has been ambulating for this last week. Has had some pain but no physical exam or radiographic evidence of bony injury. We'll refer her back to primary doctor for further management. Patient does have a history of opioid addiction which he freely discussed with me, I don't think that his current injuries warrant an opioid prescription under any circumstances, we will encourage him to continue using [id number] pain medication for his pain. Departure - Departure Time of Disposition: 11:57 Disposition: Home, Self-Care 01 Clinical Impression: Leg pain, bilateral Back pain Qualifiers: Back pain location: low back pain Chronicity: acute Back pain laterality: midline Sciatica presence: without sciatica Qualified Code(s): M54.5 - Low back pain - Discharge Information Prescriptions: Hydrocodone/Acetaminophen [Vicodin 5-300 mg Tablet] 1 each PO BID PRN #8 tablet PRN Reason: Pain Instructions: Back Pain, Adult, [id number] Referrals: Chaya Louis NP [Primary Care Provider] - Forms: ED Department Discharge Additional Instructions: 1. Take over the counter medications as needed for pain. You may also use heat packs on areas of pain. 2. Follow up with your primary care provider as soon as possible for further care and possible referral to physical therapy - My Orders Last 24 Hours: My Active Orders 03/24/17 10:58 Hip Min 2V or 3V Lt [CR] Stat Hip Min 2V or 3V Rt [CR] Stat Knee 3V Lt [CR] Stat Knee 3V Rt [CR] Stat - Assessment/Plan Last 24 Hours: My Active Orders 03/24/17 10:58 Hip Min 2V or 3V Lt [CR] Stat Hip Min 2V or 3V Rt [CR] Stat Knee 3V Lt [CR] Stat Knee 3V Rt [CR] Stat
--- NOTE | 2017-03-24 11:43 | CT ---
CT lumbar spine Technique: Multiple axial sections were obtained from above the T11-T12 disc inferiorly through the L5-S1 disc. Reconstructed sagittal and coronal images were reviewed. Comparison: No previous lumbar spine imaging. Findings: Mild disc space narrowing is seen posteriorly at L5-S1. Very slight diffuse posterior disc bulge noted at L5-S1. No focal disc herniation is seen. No central canal stenosis or neural foraminal stenosis is seen. Vertebral bodies and posterior arches are intact with no fracture being identified. Unilateral spondylolytic defect is seen at L5 on the left side which does not appear to be acute. No abnormal subluxation is seen on the reconstructed sagittal images. Impression: 1. Unilateral spondylolytic defect at L5. This is noted on the left side and appears to be old. 2. Minimal degenerative change at L5-S1. 3. No additional abnormality is seen on CT study of the lumbar spine. Diagnostic code #2
--- NOTE | 2017-03-24 13:12 | CR ---
Right hip: AP and frog-leg lateral views of the right hip were obtained. Comparison: No previous study. Joint space within the right hip is preserved. Sacroiliac joints are within normal limits. No fracture or other abnormality is seen. Impression: 1. No abnormality is seen on two-view right hip exam. Diagnostic code #1
--- NOTE | 2017-03-24 13:12 | CR ---
Right knee: AP, lateral and sunrise patellar views of the right knee were obtained. Medial and lateral joint spaces are maintained in height. Patellofemoral joint is normal. No joint effusion is seen. No acute fracture or other abnormality is seen. Impression: 1. Unremarkable three-view right knee exam. Diagnostic code #1
--- NOTE | 2017-03-24 13:12 | CR ---
Left knee: AP, lateral and sunrise patellar views of the left knee were obtained. Comparison: No previous left knee exam. Medial and lateral joint spaces are preserved. Minimal osteophyte off the superior left patella is seen. Patellofemoral joints appear within normal limits. No fracture or dislocation is seen. Impression: 1. Minimal spur off the superior left patella. 2. Left knee study is otherwise unremarkable. Diagnostic code #2
--- NOTE | 2017-03-24 13:12 | CR ---
Left hip: AP and frog-leg lateral views of the left hip were obtained. Comparison: No previous study. Joint space within the left hip is preserved. Left sacroiliac joint is within normal limits. No fracture or other abnormality is seen. Impression: 1. No abnormality is identified on two-view left hip exam. Diagnostic code #1
== END 2017-03-24 12:25 | disposition home or self-care (01) ==
LOC: JD.ED 10:24
DX: M54.5 Low back pain (principal); M79.604 Pain in right leg; M79.605 Pain in left leg; F17.210 Nicotine dependence, cigarettes, uncomplicated; Z88.5 Allergy status to narcotic agent; Z88.1 Allergy status to other antibiotic agents; Z79.899 Other long term (current) drug therapy; Z98.890 Other specified postprocedural states
CPT/HCPCS: 72131; 73502; 73562; 96372; 99284; A9270; J1885

== ENCOUNTER 2017-04-17 19:28 | Emergency (ER) | payer OTHER ==
--- NOTE | 2017-04-17 21:17 | EDM.PDOC ---
ED HPI GENERAL MEDICAL PROBLEM - General Chief Complaint: Back Pain or Injury Stated Complaint: BACK PAIN Time Seen by Provider: 04/17/17 19:53 Source of Information: Reports: Patient, RN Notes Reviewed, Other ([place] History Limitations: Reports: No Limitations - History of Present Illness INITIAL COMMENTS - FREE TEXT/NARRATIVE: The patient states that he fell out of a tree about a month ago, causing low back pain. He states that he was seen in this ER about 2 weeks ago (medical records indicate 03/24/2017) where, he states x-rays and a CT scan were performed , which were negative. Medical records indicate that the patient was prescribed 8 tablets of [place] 5/325 at that visit. He states that he followed up with Chaya Heriberto (medical records indicate 04/09/2017), who has ordered a MRI, which he has not yet had, citing insurance problems. He states that Ms. Louis prescribed Norflex for him, which he is taking, but states that it is not helping. He now presents stating that in addition to his low back pain, which continues, he also has posterior neck pain, made worse if he tips his chin towards his chest. He states that the pain shoots down his back, but he does not indicate that it radiates to either upper extremity. He states that he is looking for pain relief, as well as answers as to why he continues to have pain. He states that he has been taking Tylenol and up to 14 Aleve per day, without relief. On further questioning, the patient acknowledges that he is a former heroin abuser, previously treated with Suboxone, but that he went "cold turkey" several months ago, when he moved to [place]. He acknowledges that he smoked marijuana last night in an attempt to relieve pain. Review of the [place]MP[place] finds that the patient has 84 prescriptions for opioids, including Suboxone, by 16 prescribers, and filled at 7 pharmacies since 2013. 13 of those prescriptions were self pay. His most recent Suboxone prescription, a 30 day supply, was filled on 12/25/2016. Since then, however, the patient has filled 4 prescriptions for [place] by 4 separate prescribers. Back Pain Score (Numeric/FACES): 9 - Related Data Allergies Allergy/AdvReac Type Severity Reaction Status Date / Time haloperidol [From Haldol] Allergy Other Verified 04/17/17 19:47 metronidazole [From Flagyl] Allergy Dizziness Verified 04/17/17 19:47 Home Meds: Home Meds Omeprazole Magnesium [Prilosec Otc] 20 mg PO DAILY 03/24/17 [History] Past Medical History HEENT History: Reports: Impaired Vision Gastrointestinal History: Reports: Colon Polyp, Helicobacter Pylori, PUD Musculoskeletal History: Reports: Back Pain, Chronic, Fibromyalgia (since 2004) Psychiatric History: Reports: Addiction (Heroin), Anxiety - Infectious Disease History Infectious Disease History: Reports: C-Difficile - Past Surgical History HEENT Surgical History: Reports: Adenoidectomy, Eye Surgery (for strabismus), Tonsillectomy GI Surgical History: Reports: Colonoscopy, EGD, Hernia, Inguinal (right), Other (See Below) (Pyloric stenosis dilatation as an ) Musculoskeletal Surgical History: Reports: Other (See Below) (Right leg repair, Right fourth finger repair) Social & Family History - Family History Family Medical History: Noncontributory Immunologic: Reports: HIV Other Immunologic Family History: brother Oncologic: Reports: Leukemia Other Oncologic Family History: leukemia - Tobacco Use Smoking Status *Q: Current Every Day Smoker Years of Tobacco use: 20 Packs/Tins Daily: 0.5 Packs/Tins Daily Comment: Down from 2 ppd - Caffeine Use Caffeine Use: Reports: None - Alcohol Use Alcohol Use History: No - Recreational Drug Use Recreational Drug Use: Yes Drug Use in Last 12 Months: Yes Recreational Drug Type: Reports: Marijuana/Hashish, Oxycodone Recreational Drug Use Frequency: Binges - Living Situation & Occupation Living situation: Reports: Single, with Family (3 daughters) Occupation: Disabled ED ROS GENERAL - Review of Systems Review Of Systems: See Below Constitutional: Reports: No Symptoms HEENT: Reports: No Symptoms Respiratory: Reports: No Symptoms Cardiovascular: Reports: No Symptoms Endocrine: Reports: No Symptoms GI/Abdominal: Reports: Nausea, Other (Loose stools) : Reports: No Symptoms Musculoskeletal: Reports: No Symptoms Skin: Reports: No Symptoms Neurological: Reports: No Symptoms Psychiatric: Reports: No Symptoms Hematologic/Lymphatic: Reports: No Symptoms Immunologic: Reports: No Symptoms ED EXAM, GENERAL - Physical Exam Exam: See Below Exam Limited By: No Limitations General Appearance: Alert, WD/WN, No Apparent Distress Eye Exam: Bilateral Eye: Normal Inspection Ears: Normal External Exam, Hearing Grossly Normal Nose: Normal Inspection, No Blood Throat/Mouth: Normal Inspection, Normal Lips, Normal Voice, No Airway Compromise Head: Atraumatic, Normocephalic Neck: Normal Inspection, Full Range of Motion Respiratory/Chest: No Respiratory Distress, Lungs Clear, Normal Breath Sounds, No Accessory Muscle Use Cardiovascular: Normal Peripheral Pulses, Regular Rate, Rhythm, No Gallop, No JVD, No Murmur, No Rub Peripheral Pulses: 4+: Radial (L), Radial (R) GI/Abdominal: Normal Bowel Sounds, Soft, Non-Tender, No Organomegaly, No Distention, No Abnormal Bruit, No Mass (Male) Exam: Deferred Rectal (Males) Exam: Deferred Back Exam: Normal Inspection, Vertebral Tenderness (entire spine) Extremities: Normal Inspection, Normal Range of Motion, No Pedal Edema, Normal Capillary Refill Neurological: Alert, Oriented, Normal Cognition, No Motor/Sensory Deficits Psychiatric: Normal Affect Skin Exam: Warm, Dry, Intact, Normal Color, No Rash Lymphatic: No Adenopathy Course - Vital Signs Last Recorded V/S: Last Vital Signs Temp 36.8 C 04/17/17 19:41 Pulse 89 04/17/17 19:41 Resp 18 04/17/17 19:41 BP 146/102 H 04/17/17 19:41 Pulse Ox 100 04/17/17 19:41 - Re-Assessments/Exams Free Text/Narrative Re-Assessment/Exam: 04/17/17 21:32 Upon questioning, the patient acknowledges that he has a history of heroin abuse , reporting that his last use was about 3 years ago. Of significant concern, I see that the patient was prescribed opioids on numerous occasions while still on Suboxone, and as mentioned previously, has received 4 prescriptions for opioids since discontinuing his Suboxone a few months ago. With this history, the patient should not be prescribed opioids unless there is a significant acute injury, as the patient is at substantially elevated risk of returning to opioids, which I am concerned he is already doing. Departure - Departure Time of Disposition: 21:15 Disposition: Home, Self-Care 01 Condition: Good Clinical Impression: Chronic back pain, Drug-seeking behavior - Discharge Information Referrals: Chaya Louis NP [Primary Care Provider] - Forms: ED Department Discharge Additional Instructions: You were seen in the emergency room for continued back pain, after falling out of a tree about a month ago. Unfortunately, the question as to why your back continues to hurt can only be answered by a MRI, and MRIs are not available from the ER. Because of your history of heroin abuse, you should not be prescribed opioids. Additionally, any controlled substances need to be prescribed by a single prescriber, who, in this case, is Chaya Louis. We recommend you take Tylenol and Aleve at the recommended dosages, and do not exceed them. If any other problems, please do not hesitate to return to the ER.
== END 2017-04-17 21:40 | disposition home or self-care (01) ==
LOC: JD.ED 19:28
CPT/HCPCS: 99283

== ENCOUNTER 2017-06-04 20:37 | Emergency (ER) | payer MEDICAID, OTHER ==
[2017-06-04 20:53] VITALS: BP 109/83
[2017-06-04] MEDS ORDERED: Ondansetron 4 MG/2 ML SDV IVPUSH ONE (21:18)
[2017-06-04] MEDS ORDERED: Sodium Chloride 0.9% 1,000 ML IV SCH (21:30)
--- NOTE | 2017-06-04 22:24 | EDM.PDOC ---
ED HPI GENERAL MEDICAL PROBLEM - General Chief Complaint: Gastrointestinal Problem Stated Complaint: C DEF Time Seen by Provider: 06/04/17 20:51 Source of Information: Reports: Patient, RN Notes Reviewed History Limitations: Reports: No Limitations - History of Present Illness INITIAL COMMENTS - FREE TEXT/NARRATIVE: The patient states that he has had nausea and nonbloody diarrhea since Friday, . He developed generalized abdominal pain, crampy in character, yesterday morning, 06/03/2017. He states that his pain is worse if he increases abdominal pressure, such as sitting up abruptly. He reports a near syncopal episode when he stood up around 10:30 this morning. No recent fever. Possible dysuria since yesterday. The patient states that he has taken 8-10 tablets of acetaminophen 500 mg, and 2 tablets of Aleve on 2 separate occasions over the past couple of days. The patient denies eating recent spoiled food. No recent travel. No recent antibiotics (the last time he was on an antibiotic was > 2 months ago). None of the patient's contacts are similarly ill. The patient denies similar symptoms, however, he reports that he has had C. difficile in the past, and is worried that he has it again. The patient's PCP is Chaya Louis. Abdominal Pain Score (Numeric/FACES): 7 - Related Data Allergies Allergy/AdvReac Type Severity Reaction Status Date / Time haloperidol [From Haldol] Allergy Other Verified 04/17/17 19:47 metronidazole [From Flagyl] Allergy Dizziness Verified 04/17/17 19:47 Home Meds: Home Meds Omeprazole Magnesium [Prilosec Otc] 20 mg PO DAILY 03/24/17 [History] Past Medical History HEENT History: Reports: Impaired Vision Gastrointestinal History: Reports: Colon Polyp, PUD Musculoskeletal History: Reports: Back Pain, Chronic Psychiatric History: Reports: Addiction, Antisocial Behaviors - Infectious Disease History Infectious Disease History: Reports: C-Difficile, Helicobacter Pylori - Past Surgical History HEENT Surgical History: Reports: Eye Surgery (Strabismus correction), Tonsillectomy GI Surgical History: Reports: Colonoscopy, EGD, Hernia, Inguinal (right), Other (See Below) (Pyloric stenosis dilation as an infant) Musculoskeletal Surgical History: Reports: Carpal Tunnel (right), Other (See Below) (Right 4th finger reattachment. Right ulnar nerve transposition.) Social & Family History - Family History Family Medical History: Noncontributory Immunologic: Reports: HIV Other Immunologic Family History: brother Oncologic: Reports: Leukemia Other Oncologic Family History: leukemia - Tobacco Use Smoking Status *Q: Current Every Day Smoker Years of Tobacco use: 20 Packs/Tins Daily: 1 Packs/Tins Daily Comment: Down from > 2 ppd - Caffeine Use Caffeine Use: Reports: None - Alcohol Use Alcohol Use History: No - Recreational Drug Use Recreational Drug Use: Yes Drug Use in Last 12 Months: No Recreational Drug Type: Reports: Heroin, Marijuana/Hashish, Oxycodone Recreational Drug Use Frequency: Binges Recreational Drug Last Use: 2012 - Living Situation & Occupation Living situation: Reports: Single, with Family (3 daughters) Occupation: Disabled ED ROS GENERAL - Review of Systems Review Of Systems: See Below Constitutional: Reports: No Symptoms HEENT: Reports: No Symptoms Respiratory: Reports: No Symptoms Cardiovascular: Reports: No Symptoms Endocrine: Reports: No Symptoms GI/Abdominal: Reports: No Symptoms : Reports: No Symptoms Musculoskeletal: Reports: No Symptoms Skin: Reports: No Symptoms Neurological: Reports: No Symptoms Psychiatric: Reports: No Symptoms Hematologic/Lymphatic: Reports: No Symptoms Immunologic: Reports: No Symptoms ED EXAM, GI/ABD - Physical Exam Exam: See Below Exam Limited By: No Limitations General Appearance: Alert, WD/WN, No Apparent Distress Eyes: Bilateral: Normal Appearance, EOMI Ears: Normal External Exam, Hearing Grossly Normal Nose: Normal Inspection, No Blood Throat/Mouth: Normal Inspection, Normal Lips, Normal Voice, No Airway Compromise Head: Atraumatic, Normocephalic Neck: Normal Inspection, Full Range of Motion Respiratory/Chest: No Respiratory Distress, No Accessory Muscle Use, Rhonchi ( Throughout lungs). No: Crackles, Wheezing Cardiovascular: Normal Peripheral Pulses, Regular Rate, Rhythm, No Gallop, No JVD, No Murmur, No Rub GI/Abdominal Exam: Normal Bowel Sounds, Soft, No Organomegaly, No Distention, No Abnormal Bruit, No Mass, Pelvis Stable, Tender (Generalized, nonfocal) (Male) Exam: Deferred Rectal (Males) Exam: Deferred Back Exam: Normal Inspection, Full Range of Motion, NT Extremities: Normal Inspection, Normal Range of Motion, No Pedal Edema, Normal Capillary Refill Neurological: Alert, Oriented, Normal Cognition, No Motor/Sensory Deficits Psychiatric: Normal Affect Skin Exam: Warm, Dry, Intact, Normal Color, No Rash Lymphatic: No Adenopathy Course - Vital Signs Last Recorded V/S: Last Vital Signs Temp 36.3 C 06/04/17 20:50 Pulse 98 06/04/17 20:50 Resp 17 06/04/17 20:50 BP 109/83 06/04/17 20:50 Pulse Ox 97 06/04/17 20:50 Orthostatic Blood Pressure [ 101/81 Standing] Orthostatic Blood Pressure [ 117/76 Sitting] Orthostatic Blood Pressure [ 113/76 Supine] - Orders/Labs/Meds Orders: Active Orders 24 hr Category Date Time Status Orthostatic Vital Signs [RC] STAT Care 06/04/17 21:20 Active Abdomen Pelvis w Cont [CT] Stat Exams 06/04/17 21:18 Taken C DIFFICILE BY PCR W/NAP1 [MOLEC] Stat Lab 06/04/17 21:19 Ordered Sodium Chloride 0.9% [Normal Saline] 1,000 ml Med 06/04/17 21:30 Active IV ASDIRECTED Medication Orders Sodium Chloride (Normal Saline) 1,000 mls @ 150 mls/hr IV ASDIRECTED HANK Last Admin: 06/04/17 21:38 Dose: 150 mls/hr Labs: Laboratory Tests 06/04/17 06/04/17 06/04/17 Range/Units 21:29 21:40 21:40 WBC 10.99 H (4.23-9.07) K/mm3 RBC 5.49 (4.63-6.08) M/mm3 Hgb 17.0 (13.7-17.5) gm/L Hct 48.5 (40.1-51.0) % MCV 88.3 (79.0-92.2) fl MCH 31.0 (25.7-32.2) pg MCHC 35.1 (32.2-35.5) g/dl RDW Std Deviation 43.0 (35.1-43.9) fL Plt Count 271 (163-337) K/mm3 MPV 10.9 (9.4-12.3) fl Neutrophils % (Manual) 50 (40-60) % Band Neutrophils % 0 (0-10) % Lymphocytes % (Manual) 46 H (20-40) % Atypical Lymphs % 0 % Monocytes % (Manual) 0 L (2-10) % Eosinophils % (Manual) 3 (0.8-7.0) % Basophils % (Manual) 1 (0.2-1.2) Platelet Estimate Adequate Plt Morphology Comment Normal RBC Morph Comment Normal Sodium 143 (136-145) mEq/L Potassium 3.9 (3.5-5.1) mEq/L Chloride 106 (98-107) mEq/L Carbon Dioxide 29 (21-32) mEq/L Anion Gap 11.9 (5-15) BUN 10 (7-18) mg/dL Creatinine 1.1 (0.7-1.3) mg/dL Est Cr Clr Drug Dosing 84.19 mL/min Estimated GFR (MDRD) > 60 (>60) mL/min BUN/Creatinine Ratio 9.1 L (14-18) Glucose 94 (74-106) mg/dL Calcium 10.0 (8.5-10.1) mg/dL Total Bilirubin 0.5 (0.2-1.0) mg/dL AST 21 (15-37) U/L ALT 36 (16-63) U/L Alkaline Phosphatase 76 (46-116) U/L Total Protein 6.8 (6.4-8.2) g/dl Albumin 3.8 (3.4-5.0) g/dl Globulin 3.0 gm/dL Albumin/Globulin Ratio 1.3 (1-2) Lipase 236 (73-393) U/L Urine Color Dark yellow (Yellow) Urine Appearance Clear (Clear) Urine pH 6.0 (5.0-8.0) Ur Specific [place] > or = 1.030 (1.005-1.030) Urine Protein Trace H (Negative) Urine Glucose (UA) Negative (Negative) Urine Ketones Negative (Negative) Urine Occult Blood Trace-intact H (Negative) Urine Nitrite Negative (Negative) Urine Bilirubin 1+ H (Negative) Urine Urobilinogen 0.2 (0.2-1.0) Ur Leukocyte Esterase Negative (Negative) Urine RBC 0-5 (0-5) /hpf Urine WBC 0-5 (0-5) /hpf Ur Epithelial Cells 0-5 (0-5) /hpf Calcium Oxalate Crystal Moderate H (NONE) Urine Bacteria Moderate H (FEW) /hpf Urine Mucus Many H (FEW) /hpf Meds: Medications Generic Name Dose Route Start Last Admin Trade Name Kali PRN Reason Stop Dose Admin Sodium Chloride 1,000 mls @ 150 mls/hr 06/04/17 21:30 06/04/17 21:38 Normal Saline IV 150 mls/hr ASDIRECTED HANK Administration Discontinued Medications Generic Name Dose Route Start Last Admin Trade Name Kali PRN Reason Stop Dose Admin Diatrizoate Meglum/Diatrizoate Sod 90 ml 06/04/17 23:34 06/04/17 23:35 Gastrografin 37% PO 06/04/17 23:35 90 ml ONETIME ONE Administration Iopamidol 125 ml 06/04/17 23:34 06/04/17 23:35 Isovue-300 (61%) IVPUSH 06/04/17 23:35 125 ml ONETIME ONE Administration Ondansetron HCl 4 mg 06/04/17 21:18 06/04/17 21:38 Zofran IVPUSH 06/04/17 21:19 4 mg ONETIME ONE Administration - Re-Assessments/Exams Free Text/Narrative Re-Assessment/Exam: 06/04/17 21:15 The patient is not orthostatic. 06/04/17 22:22 The patient's urinalysis is consistent with contamination, not a UTI. 06/05/17 00:03 CT of the abdomen and pelvis with oral and IV contrast is read by [facility] as "No acute findings." 06/05/17 00:08 The patient has not been able to provide a stool sample, although my clinical suspicion for C. difficile is low, as he has not been on antibiotics recently. The remainder of his workup is unremarkable. The patient will receive an IM injection of Bentyl 20 mg, then be discharged home with a stool container. If he is able to collect a stool sample, he can take that to his PCPs office for C. difficile analysis tomorrow. Departure - Departure Time of Disposition: 00:10 Disposition: Home, Self-Care 01 Condition: Good Clinical Impression: Abdominal pain of unknown etiology, Nausea, Diarrhea - Discharge Information Referrals: Chaya Louis NP [Primary Care Provider] - Forms: ED Department Discharge Additional Instructions: You were seen in the emergency room for nausea, nonbloody diarrhea, generalized abdominal cramps, and nearly passing out. Workup in the ER included blood work, a urinalysis, a CT scan of your abdomen and pelvis, and positional blood pressure checked. You were not able to provide a stool sample for analysis. Your entire workup was unremarkable, and does not explain the cause of your symptoms. You have been provided a stool container. If you are able to provide a stool sample, take it to the office of your PCP, Chaya Louis, tomorrow, for analysis. If any other problems, please do not hesitate to return to the ER. - My Orders Last 24 Hours: My Active Orders 06/04/17 21:18 Abdomen Pelvis w Cont [CT] Stat 06/04/17 21:19 C DIFFICILE BY PCR W/NAP1 [MOLEC] Stat 06/04/17 21:20 Orthostatic Vital Signs [RC] STAT 06/04/17 21:30 Sodium Chloride 0.9% [Normal Saline] 1,000 ml IV ASDIRECTED - Assessment/Plan Last 24 Hours: My Active Orders 06/04/17 21:18 Abdomen Pelvis w Cont [CT] Stat 06/04/17 21:19 C DIFFICILE BY PCR W/NAP1 [MOLEC] Stat 06/04/17 21:20 Orthostatic Vital Signs [RC] STAT 06/04/17 21:30 Sodium Chloride 0.9% [Normal Saline] 1,000 ml IV ASDIRECTED
[2017-06-04] MEDS ORDERED: Diatrizoate Meglumine/Diatrizoate Sodium 37% 120 ML Bottle PO ONE (23:34)
[2017-06-04] MEDS ORDERED: Iopamidol 612 MG/ML 150 ML Bottle IVPUSH ONE (23:34)
[2017-06-05] MEDS ORDERED: Dicyclomine 20 MG/2 ML SDV IM ONE (00:09)
--- NOTE | 2017-06-05 08:24 | CT ---
CT abdomen and pelvis Technique: Multiple axial sections were obtained from above the dome of the diaphragm inferiorly through the pubic symphysis. Intravenous and oral contrast was utilized. Delayed images were obtained through the bladder. Comparison: No prior abdominal CT. Findings: Visualized lung bases show nothing acute. Liver shows minimal low-density lesion within the right lobe. This is nonspecific but most likely due to minimal cyst. Gallbladder appears contracted. Spleen appears within normal limits. Adrenal glands show no nodule. Kidneys show symmetric contrast enhancement without hydronephrosis or mass. Pancreas is within normal limits. Aorta shows no aneurysmal dilatation. No retroperitoneal adenopathy or mesenteric abnormalities are seen. No pelvic mass or adenopathy is seen. Delayed images show contrast within the distal ureters and within the bladder. Appendix is seen which appears within normal limits. No free fluid or inflammatory change is seen within the abdomen or pelvis. Bone window settings were reviewed which appear within normal limits for the patient's age. Impression: 1. Nothing acute is identified on CT study of the abdomen and pelvis. Diagnostic code #2 I agree with preliminary report issued by [facility] ([facility] preliminary report dictated on 06/05/17, 12:30 AM Central Time)
== END 2017-06-05 00:29 | disposition home or self-care (01) ==
LOC: JD.ED 20:37
DX: R10.84 Generalized abdominal pain (principal); R11.0 Nausea; R19.7 Diarrhea, unspecified; F17.210 Nicotine dependence, cigarettes, uncomplicated; Z88.5 Allergy status to narcotic agent; Z88.1 Allergy status to other antibiotic agents; Z98.890 Other specified postprocedural states
CPT/HCPCS: 36415; 74177; 80053; 81001; 83690; 85025; 96361; 96372; 96374; 99284; J0500; J2405; J7040; Q9963; Q9967

== ENCOUNTER 2017-06-18 18:52 | Emergency (ER) | payer OTHER, MEDICAID ==
[2017-06-18 19:07] VITALS: BP 131/108
[2017-06-18] MEDS ORDERED: Dicyclomine 20 MG/2 ML SDV IM ONE (19:43)
--- NOTE | 2017-06-18 20:06 | EDM.PDOC ---
ED HPI GENERAL MEDICAL PROBLEM - General Chief Complaint: Behavioral/Psych Stated Complaint: DEPRESSION SELF HARM Time Seen by Provider: 06/18/17 19:08 Source of Information: Reports: Patient, Old Records, RN Notes Reviewed History Limitations: Reports: No Limitations - History of Present Illness INITIAL COMMENTS - FREE TEXT/NARRATIVE: The patient has a long history of abdominal pain and diarrhea. He has been to the ED numerous times, and workups, including a CT scan of the abdomen and pelvis on 06/04/2017, have always been negative. The patient now states that he is hurting, tired of suffering, and not being able to do anything. He states that he is feeling depressed and suicidal, although he does not have a plan. He states that he has had a decreased oral intake, and dark bloody bowel movements. He states that his cnc machine setter is Chanell Escalera at [facility], but that he cannot get to see her, because he does not have a vehicle. The patient states that he attempted suicide in 2007 by cutting his left forearm , however, the wounds were relatively superficial and able to be repaired in the ED. He was not psychiatrically hospitalized for that event. He states that he was psychiatrically hospitalized for 3 days in [place] this past winter when he attempted suicide by snorting 2 g of heroin and 2 g of cocaine all at once. The patient states that he has not attempted to harm himself today. He admits to smoking some marijuana and taking 2 Klonopin tablets, given to him by a friend. Generalized Pain Score (Numeric/FACES): 8 - Related Data Allergies Allergy/AdvReac Type Severity Reaction Status Date / Time haloperidol [From Haldol] Allergy Other Verified 06/18/17 19:00 metronidazole [From Flagyl] Allergy Dizziness Verified 06/18/17 19:00 Home Meds: Home Meds Omeprazole Magnesium [Prilosec Otc] 20 mg PO DAILY 03/24/17 [History] Past Medical History HEENT History: Reports: Impaired Vision Gastrointestinal History: Reports: Colon Polyp, PUD Musculoskeletal History: Reports: Back Pain, Chronic Psychiatric History: Reports: Addiction, Antisocial Behaviors - Infectious Disease History Infectious Disease History: Reports: C-Difficile, Helicobacter Pylori - Past Surgical History HEENT Surgical History: Reports: Eye Surgery (Strabismus correction), Tonsillectomy GI Surgical History: Reports: Colonoscopy, EGD, Hernia, Inguinal (right), Other (See Below) (Pyloric stenosis repair) Musculoskeletal Surgical History: Reports: Carpal Tunnel (right), Nerve Relocation (right ulnar nerve), Other (See Below) (Right 4th finger reattachment ) Social & Family History - Family History Family Medical History: Noncontributory Immunologic: Reports: HIV Other Immunologic Family History: brother Oncologic: Reports: Leukemia Other Oncologic Family History: leukemia - Tobacco Use Smoking Status *Q: Current Every Day Smoker Years of Tobacco use: 20 Packs/Tins Daily: 1 Packs/Tins Daily Comment: Down from 2 ppd - Caffeine Use Caffeine Use: Reports: None - Alcohol Use Alcohol Use History: No - Recreational Drug Use Recreational Drug Use: Yes Drug Use in Last 12 Months: Yes Recreational Drug Type: Reports: Cocaine (last = Sep 2016), Heroin (last = Sep 2016), Marijuana/Hashish (daily), Oxycodone - Living Situation & Occupation Living situation: Reports: Single, with Family (3 daughters) Occupation: Disabled ED ROS GENERAL - Review of Systems Review Of Systems: See Below Constitutional: Reports: No Symptoms HEENT: Reports: No Symptoms Respiratory: Reports: No Symptoms Cardiovascular: Reports: No Symptoms Endocrine: Reports: No Symptoms GI/Abdominal: Reports: Abdominal Pain (as per the HPI), Diarrhea (as per the HPI ) : Reports: No Symptoms Musculoskeletal: Reports: No Symptoms Skin: Reports: No Symptoms Neurological: Reports: No Symptoms Psychiatric: Reports: No Symptoms Hematologic/Lymphatic: Reports: No Symptoms Immunologic: Reports: No Symptoms ED EXAM, GENERAL - Physical Exam Exam: See Below Exam Limited By: No Limitations General Appearance: Alert, WD/WN, No Apparent Distress Eye Exam: Bilateral Eye: Normal Inspection Ears: Normal External Exam, Hearing Grossly Normal Nose: Normal Inspection, No Blood Throat/Mouth: Normal Inspection, Normal Lips, Normal Voice, No Airway Compromise Head: Atraumatic, Normocephalic Neck: Normal Inspection, Full Range of Motion Respiratory/Chest: No Respiratory Distress, Lungs Clear, Normal Breath Sounds, No Accessory Muscle Use Cardiovascular: Normal Peripheral Pulses, Regular Rate, Rhythm, No Gallop, No JVD, No Murmur, No Rub Peripheral Pulses: 4+: Radial (L), Radial (R) GI/Abdominal: Normal Bowel Sounds, Soft, No Organomegaly, No Distention, No Abnormal Bruit, No Mass, Tender (Generalized, but less tender if distracted) (Male) Exam: Deferred Rectal (Males) Exam: Deferred Back Exam: Normal Inspection, Full Range of Motion, NT Extremities: Normal Inspection, Normal Range of Motion, No Pedal Edema, Normal Capillary Refill Neurological: Alert, Oriented, Normal Cognition, No Motor/Sensory Deficits Psychiatric: Normal Affect Skin Exam: Warm, Dry, Intact, Normal Color, No Rash, Tattoo(s) (extensive) EKG INTERPRETATION EKG Date: 06/18/17 Time: 20:02 Rhythm: NSR Rate (Beats/Min): 81 [place]: Normal P-Wave: Present QRS: Normal ST-T: Other (Diffuse J-point elevations, no ischemic changes) QT: Normal Comparison: NA - No Prior EKG Course - Vital Signs Last Recorded V/S: Last Vital Signs Temp 36.2 C 06/18/17 19:01 Pulse 100 06/18/17 19:01 Resp BP 131/108 H 06/18/17 19:01 Pulse Ox 100 06/18/17 19:01 - Orders/Labs/Meds Orders: Active Orders 24 hr Category Date Time Status EKG Documentation Completion [RC] STAT Care 06/18/17 19:38 Active Labs: Laboratory Tests 06/18/17 06/18/17 06/18/17 Range/Units 19:59 20:12 20:12 WBC 10.69 H (4.23-9.07) K/mm3 RBC 5.03 (4.63-6.08) M/mm3 Hgb 15.6 (13.7-17.5) gm/L Hct 44.4 (40.1-51.0) % MCV 88.3 (79.0-92.2) fl MCH 31.0 (25.7-32.2) pg MCHC 35.1 (32.2-35.5) g/dl RDW Std Deviation 42.8 (35.1-43.9) fL Plt Count 255 (163-337) K/mm3 MPV 10.3 (9.4-12.3) fl Neutrophils % (Manual) 73 H (40-60) % Band Neutrophils % 0 (0-10) % Lymphocytes % (Manual) 20 (20-40) % Atypical Lymphs % 0 % Monocytes % (Manual) 5 (2-10) % Eosinophils % (Manual) 1 (0.8-7.0) % Basophils % (Manual) 1 (0.2-1.2) Platelet Estimate Adequate Plt Morphology Comment Normal RBC Morph Comment Normal Sodium 143 (136-145) mEq/L Potassium 3.7 (3.5-5.1) mEq/L Chloride 108 H (98-107) mEq/L Carbon Dioxide 26 (21-32) mEq/L Anion Gap 12.7 (5-15) BUN 10 (7-18) mg/dL Creatinine 0.9 (0.7-1.3) mg/dL Est Cr Clr Drug Dosing TNP Estimated GFR (MDRD) > 60 (>60) mL/min BUN/Creatinine Ratio 11.1 L (14-18) Glucose 116 H (74-106) mg/dL Calcium 8.8 (8.5-10.1) mg/dL Total Bilirubin 0.6 (0.2-1.0) mg/dL AST 20 (15-37) U/L ALT 36 (16-63) U/L Alkaline Phosphatase 66 (46-116) U/L Total Protein 6.6 (6.4-8.2) g/dl Albumin 3.6 (3.4-5.0) g/dl Globulin 3.0 gm/dL Albumin/Globulin Ratio 1.2 (1-2) Lipase 227 (73-393) U/L TSH 3rd Generation 0.345 L (0.358-3.74) uIU/mL Urine Color Yellow (Yellow) Urine Appearance Clear (Clear) Urine pH 6.5 (5.0-8.0) Ur Specific [place] 1.025 (1.005-1.030) Urine Protein Negative (Negative) Urine Glucose (UA) Negative (Negative) Urine Ketones Trace H (Negative) Urine Occult Blood Negative (Negative) Urine Nitrite Negative (Negative) Urine Bilirubin Negative (Negative) Urine Urobilinogen 0.2 (0.2-1.0) Ur Leukocyte Esterase Negative (Negative) Urine RBC Not seen (0-5) /hpf Urine WBC 0-5 (0-5) /hpf Ur Epithelial Cells 0-5 (0-5) /hpf Urine Bacteria Not seen (FEW) /hpf Urine Mucus Not seen (FEW) /hpf Salicylates (2.8-20) mg/dL Urine Opiates Screen (NEGATIVE) Ur Buprenorphine Scrn (NEGATIVE) Ur Oxycodone Screen (NEGATIVE) Urine Methadone Screen (NEGATIVE) Ur Propoxyphene Screen (NEGATIVE) Acetaminophen 0 L (10-30) ug/mL Ur Barbiturates Screen (NEGATIVE) Ur Tricyclics Screen (NEGATIVE) Ur Phencyclidine Scrn (NEGATIVE) Ur Amphetamine Screen (NEGATIVE) U Methamphetamines Scrn (NEGATIVE) U Benzodiazepines Scrn (NEGATIVE) U Cocaine Metab Screen (NEGATIVE) U Marijuana (THC) Screen (NEGATIVE) Ethyl Alcohol < 0.03 (0.00) gm% 06/18/17 06/18/17 Range/Units 20:12 20:12 WBC (4.23-9.07) K/mm3 RBC (4.63-6.08) M/mm3 Hgb (13.7-17.5) gm/L Hct (40.1-51.0) % MCV (79.0-92.2) fl MCH (25.7-32.2) pg MCHC (32.2-35.5) g/dl RDW Std Deviation (35.1-43.9) fL Plt Count (163-337) K/mm3 MPV (9.4-12.3) fl Neutrophils % (Manual) (40-60) % Band Neutrophils % (0-10) % Lymphocytes % (Manual) (20-40) % Atypical Lymphs % % Monocytes % (Manual) (2-10) % Eosinophils % (Manual) (0.8-7.0) % Basophils % (Manual) (0.2-1.2) Platelet Estimate Plt Morphology Comment RBC Morph Comment Sodium (136-145) mEq/L Potassium (3.5-5.1) mEq/L Chloride (98-107) mEq/L Carbon Dioxide (21-32) mEq/L Anion Gap (5-15) BUN (7-18) mg/dL Creatinine (0.7-1.3) mg/dL Est Cr Clr Drug Dosing Estimated GFR (MDRD) (>60) mL/min BUN/Creatinine Ratio (14-18) Glucose (74-106) mg/dL Calcium (8.5-10.1) mg/dL Total Bilirubin (0.2-1.0) mg/dL AST (15-37) U/L ALT (16-63) U/L Alkaline Phosphatase (46-116) U/L Total Protein (6.4-8.2) g/dl Albumin (3.4-5.0) g/dl Globulin gm/dL Albumin/Globulin Ratio (1-2) Lipase (73-393) U/L TSH 3rd Generation (0.358-3.74) uIU/mL Urine Color (Yellow) Urine Appearance (Clear) Urine pH (5.0-8.0) Ur Specific [place] (1.005-1.030) Urine Protein (Negative) Urine Glucose (UA) (Negative) Urine Ketones (Negative) Urine Occult Blood (Negative) Urine Nitrite (Negative) Urine Bilirubin (Negative) Urine Urobilinogen (0.2-1.0) Ur Leukocyte Esterase (Negative) Urine RBC (0-5) /hpf Urine WBC (0-5) /hpf Ur Epithelial Cells (0-5) /hpf Urine Bacteria (FEW) /hpf Urine Mucus (FEW) /hpf Salicylates 2.2 L (2.8-20) mg/dL Urine Opiates Screen Negative (NEGATIVE) Ur Buprenorphine Scrn Negative (NEGATIVE) Ur Oxycodone Screen Negative (NEGATIVE) Urine Methadone Screen Negative (NEGATIVE) Ur Propoxyphene Screen Negative (NEGATIVE) Acetaminophen (10-30) ug/mL Ur Barbiturates Screen Negative (NEGATIVE) Ur Tricyclics Screen Negative (NEGATIVE) Ur Phencyclidine Scrn Negative (NEGATIVE) Ur Amphetamine Screen Negative (NEGATIVE) U Methamphetamines Scrn Negative (NEGATIVE) U Benzodiazepines Scrn Negative (NEGATIVE) U Cocaine Metab Screen Negative (NEGATIVE) U Marijuana (THC) Screen Presumptive positive H (NEGATIVE) Ethyl Alcohol (0.00) gm% Meds: Medications Discontinued Medications Generic Name Dose Route Start Last Admin Trade Name Freq PRN Reason Stop Dose Admin Dicyclomine HCl 20 mg 06/18/17 19:43 06/18/17 19:51 Bentyl IM 06/18/17 19:44 Not Given ONETIME ONE - Re-Assessments/Exams Free Text/Narrative Re-Assessment/Exam: 06/18/17 20:05 Notified by nurse Roldan that the patient is refusing the Bentyl that I ordered, stating that it does not work for him. He requested something stronger for pain. Given the circumstances, including the patient's prior abuse/addiction to heroin, and the chronicity of his current complaints, I do not feel that opiates would be appropriate at this time. 06/18/17 20:18 Notified by nurse Yuli that the patient wants to leave, likely because he is not being given narcotics. The plan that I had established with the patient was that we perform a medical clearance workup, and that I would then attempt to have him transferred to [facility] where he could potentially be seen by his Gas Engine Performance Engineer, Dr. Chanell Escalera. This would be as a medical transfer, not psychiatric, as the patient does not actually have a plan, and has not actually attempted to harm himself. I went to talk to the patient, who had already gotten dressed. I explained that I cannot transfer him to [facility] if he leaves. He shook his head and said that it was not that important. He then proceeded to leave the ED, refusing to sign AMA paperwork. 06/18/17 20:25 Notified that the patient returned to the ED and now wants to be seen again. We will put him back in his room. 06/18/17 20:38 I spoke with the patient. He confirms that he is looking for some opioid pain relief, and when he did not get hit, that is why he left. I explained my reasoning why I cannot give that, and the patient appears to be accepting that at this time. 06/18/17 22:[address] Yanez, Hospitalist at [facility], at 22:23. He looked at the patient's records and found that the patient underwent an EGD and colonoscopy per the Gas Engine Performance Engineer Dr. Haider this past February, therefore he does not feel that there is an emergent need to transfer the patient to their facility. Case was discussed with Dr. Landeros, who is willing to see the patient as an outpatient. The above was relayed to the patient, who then proceeded to leave the emergency room, stating that there is nothing that we can do for him. I pointed out that we do have options; that the patient can follow-up with Dr. Landeros, as well as go to [facility] for mental health services. I also offered to have him admitted psychiatrically if he chose, but he feels that without addressing his Gastroenterologic issues first, mental health would be of no use. I am suggesting that he goes to [facility] in the morning, and then follow-up with Dr. Landeros at the next available appointment. Nevertheless, the patient left without signing the AMA paperwork. Departure - Departure Time of Disposition: 22:38 Disposition: Against Medical Advice 07 Condition: Fair Clinical Impression: Abdominal pain of unknown etiology, Diarrhea, Depression, Suicidal ideation - Discharge Information Instructions: Suicidal Feelings: How to Help Yourself, Abdominal Pain, Adult, [id number] Referrals: PCP,Unknown [Primary Care Provider] - Manuel Landeros MD [Physician] - Additional Instructions: You were seen in the emergency room for depression and suicidal ideation related to your chronic abdominal pain and diarrhea. Workup in the ER included blood work, a urinalysis, a urine drug screen, and an ECG. Your entire workup was unremarkable. The case was discussed with the Hospitalist at [facility]. Because you underwent an EGD and colonoscopy this past February, they did not feel that he needed to be transferred to their facility emergently tonight. The case was also discussed with the Surgeon Dr. Landeros, who would be willing to see you in his office. We are recommending that you go to [facility] at 8:00 tomorrow mornin 13th Gwendolyn Mckinnon We recommend that you follow-up with Dr. Landeros at the next available appointment. If any other problems, please do not hesitate to return to the ER. - My Orders Last 24 Hours: My Active Orders 06/18/17 19:38 EKG Documentation Completion [RC] STAT - Assessment/Plan Last 24 Hours: My Active Orders 06/18/17 19:38 EKG Documentation Completion [RC] STAT
[2017-06-18 20:59] LABS: ACETAMINOPHEN 0 ug/mL (10-30)
== END 2017-06-18 22:45 | disposition left against medical advice (07) ==
LOC: JD.ED 18:52
DX: R10.84 Generalized abdominal pain (principal); R19.7 Diarrhea, unspecified; F32.9 Major depressive disorder, single episode, unspecified; R45.851 Suicidal ideations; F17.210 Nicotine dependence, cigarettes, uncomplicated; Z98.890 Other specified postprocedural states; Z79.899 Other long term (current) drug therapy; Z88.1 Allergy status to other antibiotic agents; Z88.8 Allergy status to other drugs, medicaments and biological substances
CPT/HCPCS: 36415; 80053; 80306; 81001; 83690; 84443; 85025; 93005; 99284; G0480; 93010

== ENCOUNTER 2017-06-19 00:42 | Emergency (ER) | payer OTHER, MEDICAID ==
--- NOTE | 2017-06-19 01:57 | EDM.PDOCBH ---
ED HPI GENERAL MEDICAL PROBLEM - General Chief Complaint: Behavioral/Psych Stated Complaint: [facility] Time Seen by Provider: 06/19/17 00:46 Source of Information: Reports: Patient, EMS, Old Records, RN Notes Reviewed History Limitations: Reports: No Limitations - History of Present Illness INITIAL COMMENTS - FREE TEXT/NARRATIVE: The patient was seen in this ED earlier tonight, stating that he is tired of hurting, tired of suffering, and not being able to do anything. He stated that he was feeling depressed and suicidal, but did not have a plan. The patient has a long history of abdominal pain and diarrhea. He reports a decreased oral intake and dark bloody bowel movements. He has been seen at this emergency department several times, always with negative workups. He has been referred to gastroenterology, however, he states that he does not have a vehicle, and therefore cannot follow-up. His workup earlier today, including a CBC, CMP, lipase level, acetaminophen level, salicylate level, alcohol level, TSH level, urinalysis, and ECG were all unremarkable, with the exception of a mildly elevated WBC count of 10.69, a TSH slightly low at 0.345, and a urine drug screen positive for marijuana. The patient had stated that his [employer] Solar [employer]er was at [facility]. I contacted the Hospitalist at [facility] in an attempt to have him transferred there, however, the Hospitalist looked through the patient's records and found that the patient had undergone an EGD and colonoscopy this past February, did not feel that the patient required an emergency EGD, and therefore refused transfer. I then spoke with Dr. Landeros, who agreed that the patient did not require an emergency EGD, and recommended the patient follow-up with him in the clinic. During the patient's visit, he asked for pain medication. He was offered Bentyl , but declined it, stating that he had had it before and that it did nothing for him. He asked for an opioid pain reliever, however, the patient has a history of heroin and oxycodone addiction, and given the chronicity of his symptoms, I did not feel that an opioid was appropriate. The patient left the ED without signing the AMA forms. The patient states that when he got home this evening, he took 6 x Klonopin 1 mg , 25 x famotidine 20 mg, and up to 27 clarithromycin 500 mg. When asked why he did that, he responded "Hopefully I would ". According to the patient, one of his daughters saw what he was doing and called EMS, who brought him to the ED. EMS brought to empty pill bottles, however, the famotidine was prescribed and was intended to last only 2 weeks, and a clarithromycin was prescribed 03/13/2017, also intended to last 2 weeks. The patient stats that the Klonopin was given to him by a friend. The patient states that he attempted to kill himself in 2007 by cutting his left forearm. His wounds were relatively superficial, and repaired in the ED. He was not psychiatrically hospitalized as a result. He states that he was psychiatrically hospitalized for 3 days in [place] this past winter after intentionally snorting 2 g of heroin and 2 g of cocaine at one time in an attempt to kill himself. Abdominal Pain Score (Numeric/FACES): 8 - Related Data Allergies Allergy/AdvReac Type Severity Reaction Status Date / Time haloperidol [From Haldol] Allergy Other Verified 06/18/17 19:00 metronidazole [From Flagyl] Allergy Dizziness Verified 06/18/17 19:00 Home Meds: Home Meds Omeprazole Magnesium [Prilosec Otc] 20 mg PO DAILY 03/24/17 [History] Past Medical History HEENT History: Reports: Impaired Vision Gastrointestinal History: Reports: Colon Polyp, PUD Musculoskeletal History: Reports: Back Pain, Chronic Psychiatric History: Reports: Addiction, Antisocial Behaviors - Infectious Disease History Infectious Disease History: Reports: C-Difficile, Helicobacter Pylori - Past Surgical History HEENT Surgical History: Reports: Eye Surgery (Strabismus correction), Tonsillectomy GI Surgical History: Reports: Colonoscopy, EGD, Hernia, Inguinal (right), Other (See Below) (Pyloric stenosis repair) Musculoskeletal Surgical History: Reports: Carpal Tunnel (right), Nerve Relocation (right ulnar nerve), Other (See Below) (Right 4th finger reattachment ) Social & Family History - Family History Family Medical History: Noncontributory Immunologic: Reports: HIV Other Immunologic Family History: brother Oncologic: Reports: Leukemia Other Oncologic Family History: leukemia - Tobacco Use Smoking Status *Q: Current Every Day Smoker Years of Tobacco use: 20 Packs/Tins Daily: 1 Packs/Tins Daily Comment: Down from 2 ppd - Caffeine Use Caffeine Use: Reports: None - Alcohol Use Alcohol Use History: No - Recreational Drug Use Recreational Drug Use: Yes Drug Use in Last 12 Months: Yes Recreational Drug Type: Reports: Cocaine (last =Sep 2016), Heroin (last = Sep 2016), Marijuana/Hashish (daily), Oxycodone - Living Situation & Occupation Living situation: Reports: Single, with Family (3 daughters) Occupation: Disabled ED ROS GENERAL - Review of Systems Review Of Systems: See Below Constitutional: Reports: No Symptoms HEENT: Reports: No Symptoms Respiratory: Reports: No Symptoms Cardiovascular: Reports: No Symptoms Endocrine: Reports: No Symptoms GI/Abdominal: Reports: Abdominal Pain (as per the HPI), Diarrhea (as per the HPI ) : Reports: No Symptoms Musculoskeletal: Reports: No Symptoms Skin: Reports: No Symptoms Neurological: Reports: No Symptoms Psychiatric: Reports: No Symptoms Hematologic/Lymphatic: Reports: No Symptoms Immunologic: Reports: No Symptoms ED EXAM, BEHAVIORAL HEALTH - Physical Exam Exam: See Below Exam Limited By: Uncooperative General Appearance: Alert, WD/WN, No Apparent Distress Eye Exam: Left Eye: Other (Disconjugate gaze) Ears: Normal External Exam, Hearing Grossly Normal Nose: Normal Inspection, No Blood Throat/Mouth: Normal Inspection, Normal Lips, Normal Voice, No Airway Compromise Head: Atraumatic, Normocephalic Neck: Normal Inspection, Full Range of Motion Respiratory/Chest: No Respiratory Distress, Lungs Clear, Normal Breath Sounds, No Accessory Muscle Use Cardiovascular: Normal Peripheral Pulses, Regular Rate, Rhythm, No Gallop, No JVD, No Murmur, No Rub GI/Abdominal: Normal Bowel Sounds, Soft, No Organomegaly, No Distention, No Abnormal Bruit, No Mass, Tender (Generalized, but minimal tenderness if distracted) (Male) Exam: Deferred Rectal (Males) Exam: Deferred Back Exam: Normal Inspection, Full Range of Motion, NT Extremities: Normal Inspection, Normal Range of Motion, No Pedal Edema, Normal Capillary Refill Neurological: Alert, No Motor/Sensory Deficits, Oriented x 3 Psychiatric: Agitated (hostile), Threatening Behavior Skin Exam: Warm, Dry, Intact, Normal color, No rash, Tattoo(s) (extensive) EKG INTERPRETATION EKG Date: 06/19/17 Time: 04:42 Rhythm: NSR Rate (Beats/Min): 81 [place]: Normal P-Wave: Present QRS: Normal ST-T: Normal QT: Normal Comparison: NA - No Prior EKG COURSE, BEHAVIORAL HEALTH COMP - Course Vital Signs: Last Vital Signs Temp 36.1 C 06/19/17 08:00 Pulse 85 06/19/17 08:00 Resp 16 06/19/17 08:00 BP 104/74 06/19/17 08:00 Pulse Ox 98 06/19/17 08:00 Orders, Labs, Meds: Active Orders 24 hr Category Date Time Status EKG Documentation Completion [RC] STAT Care 06/19/17 01:13 Active Laboratory Tests 06/19/17 06/19/17 06/19/17 Range/Units 01:02 04:44 04:44 WBC 12.53 H (4.23-9.07) K/mm3 RBC 4.89 (4.63-6.08) M/mm3 Hgb 15.2 (13.7-17.5) gm/L Hct 43.7 (40.1-51.0) % MCV 89.4 (79.0-92.2) fl MCH 31.1 (25.7-32.2) pg MCHC 34.8 (32.2-35.5) g/dl RDW Std Deviation 43.5 (35.1-43.9) fL Plt Count 237 (163-337) K/mm3 MPV 10.5 (9.4-12.3) fl Neutrophils % (Manual) 70 H (40-60) % Band Neutrophils % 0 (0-10) % Lymphocytes % (Manual) 25 (20-40) % Atypical Lymphs % 1 % Monocytes % (Manual) 2 (2-10) % Eosinophils % (Manual) 2 (0.8-7.0) % Basophils % (Manual) 0 L (0.2-1.2) Platelet Estimate Adequate Plt Morphology Comment Normal RBC Morph Comment Normal Sodium 143 (136-145) mEq/L Potassium 3.9 (3.5-5.1) mEq/L Chloride 109 H (98-107) mEq/L Carbon Dioxide 23 (21-32) mEq/L Anion Gap 14.9 (5-15) BUN 10 (7-18) mg/dL Creatinine 1.1 (0.7-1.3) mg/dL Est Cr Clr Drug Dosing 84.19 mL/min Estimated GFR (MDRD) > 60 (>60) mL/min BUN/Creatinine Ratio 9.1 L (14-18) Glucose 163 H (74-106) mg/dL Calcium 8.6 (8.5-10.1) mg/dL Total Bilirubin 1.2 H (0.2-1.0) mg/dL AST 21 (15-37) U/L ALT 35 (16-63) U/L Alkaline Phosphatase 62 (46-116) U/L Total Protein 6.3 L (6.4-8.2) g/dl Albumin 3.5 (3.4-5.0) g/dl Globulin 2.8 gm/dL Albumin/Globulin Ratio 1.3 (1-2) TSH 3rd Generation 0.375 (0.358-3.74) uIU/mL Salicylates (2.8-20) mg/dL Urine Opiates Screen Negative (NEGATIVE) Ur Buprenorphine Scrn Negative (NEGATIVE) Ur Oxycodone Screen Negative (NEGATIVE) Urine Methadone Screen Negative (NEGATIVE) Ur Propoxyphene Screen Negative (NEGATIVE) Acetaminophen 8 L (10-30) ug/mL Ur Barbiturates Screen Negative (NEGATIVE) Ur Tricyclics Screen Negative (NEGATIVE) Ur Phencyclidine Scrn Negative (NEGATIVE) Ur Amphetamine Screen Negative (NEGATIVE) U Methamphetamines Scrn Negative (NEGATIVE) U Benzodiazepines Scrn Negative (NEGATIVE) U Cocaine Metab Screen Negative (NEGATIVE) U Marijuana (THC) Screen Negative (NEGATIVE) Ethyl Alcohol 0.00 (0.00) gm% 06/19/17 Range/Units 04:44 WBC (4.23-9.07) K/mm3 RBC (4.63-6.08) M/mm3 Hgb (13.7-17.5) gm/L Hct (40.1-51.0) % MCV (79.0-92.2) fl MCH (25.7-32.2) pg MCHC (32.2-35.5) g/dl RDW Std Deviation (35.1-43.9) fL Plt Count (163-337) K/mm3 MPV (9.4-12.3) fl Neutrophils % (Manual) (40-60) % Band Neutrophils % (0-10) % Lymphocytes % (Manual) (20-40) % Atypical Lymphs % % Monocytes % (Manual) (2-10) % Eosinophils % (Manual) (0.8-7.0) % Basophils % (Manual) (0.2-1.2) Platelet Estimate Plt Morphology Comment RBC Morph Comment Sodium (136-145) mEq/L Potassium (3.5-5.1) mEq/L Chloride (98-107) mEq/L Carbon Dioxide (21-32) mEq/L Anion Gap (5-15) BUN (7-18) mg/dL Creatinine (0.7-1.3) mg/dL Est Cr Clr Drug Dosing mL/min Estimated GFR (MDRD) (>60) mL/min BUN/Creatinine Ratio (14-18) Glucose (74-106) mg/dL Calcium (8.5-10.1) mg/dL Total Bilirubin (0.2-1.0) mg/dL AST (15-37) U/L ALT (16-63) U/L Alkaline Phosphatase (46-116) U/L Total Protein (6.4-8.2) g/dl Albumin (3.4-5.0) g/dl Globulin gm/dL Albumin/Globulin Ratio (1-2) TSH 3rd Generation (0.358-3.74) uIU/mL Salicylates 1.2 L (2.8-20) mg/dL Urine Opiates Screen (NEGATIVE) Ur Buprenorphine Scrn (NEGATIVE) Ur Oxycodone Screen (NEGATIVE) Urine Methadone Screen (NEGATIVE) Ur Propoxyphene Screen (NEGATIVE) Acetaminophen (10-30) ug/mL Ur Barbiturates Screen (NEGATIVE) Ur Tricyclics Screen (NEGATIVE) Ur Phencyclidine Scrn (NEGATIVE) Ur Amphetamine Screen (NEGATIVE) U Methamphetamines Scrn (NEGATIVE) U Benzodiazepines Scrn (NEGATIVE) U Cocaine Metab Screen (NEGATIVE) U Marijuana (THC) Screen (NEGATIVE) Ethyl Alcohol (0.00) gm% Medications Discontinued Medications Generic Name Dose Route Start Last Admin Trade Name Freq PRN Reason Stop Dose Admin Acetaminophen 650 mg 06/19/17 04:20 06/19/17 04:29 Tylenol PO 06/19/17 04:21 650 mg NOW STA Administration Acetaminophen 650 mg 06/19/17 08:05 06/19/17 08:06 Tylenol PO 09/21/17 08:06 650 mg NOW STA Administration Nicotine 21 mg 06/19/17 04:21 06/19/17 04:29 Habitrol TRDERM 06/19/17 04:22 21 mg ONETIME ONE Administration Ondansetron HCl 4 mg 06/19/17 07:36 06/19/17 07:40 Zofran Odt PO 06/19/17 07:37 4 mg ONETIME STA Administration Medical Clearance: 06/19/17 01:39 Since arrival, the patient has been belligerent and uncooperative. While I was interviewing him, he stated that he can get up and leave anytime he wants. I informed him that because of his actions, this facility has the legal right and obligation to hold him for psychiatric evaluation. He then sat up and started removing his telemetry leads. I had the police called, they have arrived, and are now talking with the patient. 06/19/17 02:38 The patient provided a urine sample, however, has refused to allow a blood draw or ECG. Without the blood work and ECG, I cannot medically clear the patient. I have filled out 24-hour hold paperwork, however, the police state that they have no legal right to restrain the patient or help us to acquire blood despite the patient telling them that if a nurse approaches him, they are going to "catch an elbow". They state that from their position, the 24-hour psychiatric hold means only that we can hold the patient, but gives them no legal authority to help us to prevent the patient from leaving or to acquire the blood that would be needed to medically clear the patient, and that from their perspective , the patient has the legal right to leave the ED any time he wants. Additionally, they state that if the patient leaves the ED AMA, and we call them , the most that they can do is talk to the patient to encourage him to return to the ED, but they have no legal authority to physically bring him back if he does not want to return. [facility] was contacted, and because the patient left the ED earlier tonight, they are not willing to accept a medical clearance without repeat blood work. 06/19/17 03:[address] Mendoza, a Psychiatrist at [facility]. He is willing to accept the patient as medically cleared based on the current urine drug screen and earlier blood work and ECG. We will fill out involuntary paperwork. Given the patient's history, he suggested we fill out paperwork for both chemical dependency as well as psychiatric admission. The patient has asked me several times for an opioid to treat his abdominal pain. I have explained to him several times why that is not possible. 06/19/17 04:37 The patient apparently changed his mind, and allowed blood to be drawn and an ECG to be taken. 06/19/17 06:00 The patient's blood work, urine drug screen, and ECG are all unremarkable. He is medically cleared for psychiatric admission. 06/19/17 07:00 The [facility]'s Department has been notified to transport the patient to [facility], however, they have not gotten back to us with a pickup time. We anticipate their arrival around 08:00. Case discussed with Dr. Simi Baeza, and care of the patient turned over to her at this time for change of shift. Departure - Departure Time of Disposition: 08:10 Disposition: DC/Tfer to Psych Hosp/Unit 65 Condition: Good Clinical Impression: Depression, Suicide attempt by drug ingestion, Drug-seeking behavior - Discharge Information Referrals: PCP,Unknown [Primary Care Provider] - Forms: ED Department Discharge - My Orders Last 24 Hours: My Active Orders 06/19/17 01:13 EKG Documentation Completion [RC] STAT - Assessment/Plan Last 24 Hours: My Active Orders 06/19/17 01:13 EKG Documentation Completion [RC] STAT
[2017-06-19] MEDS ORDERED: Acetaminophen 325 MG Tab PO STA ×2 (04:20→08:05)
[2017-06-19] MEDS ORDERED: Nicotine 21 MG/24 Hr Patch TRDERM ONE (04:21)
[2017-06-19 05:20] LABS: ACETAMINOPHEN 8 ug/mL (10-30)
[2017-06-19] MEDS ORDERED: Ondansetron 4 MG Tab.DIS PO STA (07:36)
[2017-06-19 08:41] VITALS: BP 104/74
== END 2017-06-19 08:10 ==
LOC: JD.ED 00:42
DX: T42.4X2A Poisoning by benzodiazepines, intentional self-harm, initial encounter (principal); T47.0X2A Poisoning by histamine H2-receptor blockers, intentional self-harm, initial encounter; T36.3X2A Poisoning by macrolides, intentional self-harm, initial encounter; F32.9 Major depressive disorder, single episode, unspecified; Z79.899 Other long term (current) drug therapy; F17.210 Nicotine dependence, cigarettes, uncomplicated; Z76.5 Malingerer [conscious simulation]; Z88.8 Allergy status to other drugs, medicaments and biological substances
CPT/HCPCS: 36415; 80053; 80306; 84443; 85025; 93005; 99285; A9270; G0480; 93010